=== PATIENT | female | born 1945 | race Caucasian/White ===

== ENCOUNTER 2022-10-22 11:33 | Inpatient (IN) | payer OTHER ==
--- OUTSIDE RECORDS SUMMARY | 2022-10-22 11:44 | XMS REPORT | Continuity of Care Document ---
:1945 Author Organization [facility] t Address [address] [place] [address]. [address] [place] [address] Care Team Providers Name Role Phone Dwayne Gaxiola Primary Care Physician CARLOS FARRELL Attending Clinician Unavailable Abigail Peña Attending Clinician Unavailable [place] Attending Clinician Param Metzger Attending Clinician KAM NOVA Attending Clinician Unavailable Kam Nova Attending Clinician BRENDA MUNIZ Attending Clinician Unavailable ANDREI DELGADILLO Attending Clinician Unavailable Andrei Delgadillo MD Attending Clinician Only, Adc Test Attending Clinician Unavailable Kurtis Harp MD Attending Clinician KURTIS HARP Attending Clinician Unavailable Doctor Unassigned, [place] Attending Clinician Unavailable Pob, [facility] Lab Main Attending Clinician Unavailable KARIME HUDSON Attending Clinician Unavailable JOSE ALFREDO GARCIA Attending Clinician Unavailable MARCELLUS Attending Clinician Unavailable Dwayne Gaxiola Attending Clinician [phone] Nicole Ragsdale Attending Clinician Ryan Swartz Attending Clinician Rafael El L Admitting Clinician KAM NOVA Admitting Clinician Unavailable Kam Nova Admitting Clinician BRENDA MUNIZ Admitting Clinician Unavailable ANDREI DELGADILLO Admitting Clinician Unavailable Andrei Delgadillo MD Admitting Clinician MARCELLUS Admitting Clinician Unavailable Nicole Ragsdale Admitting Clinician Ryan Swartz Admitting Clinician Payers Payer Name Policy Type Policy Number Effective Date Expiration Date [facility] [id number] 2022 [facility]LY [facility] 00:00:00 [facility] [id number] 2021 [facility] 00:00:00 PPO [place] [id number] 2021 00:00:00 TRS-CARE MEDICARE [id number] [facility] [id number] (PPO) [employer] (MEDICARE [id number] REPLACEMENT/ADVANTA GE - PPO) Problems Condition Condition Condition Status Onset Resolution Last Treating Co mments Source Name Details Category Date Date Treatment Clinician Date LASHAWN HARDIN Diagnosis Active 2022-01-11 Memoria BILLING/LF BILLING/LF 01-07 08:13:00 l LT 2787 LT 2787 00:00: Ronn Active 00 01/07/2022 [facility] STROKE STROKE Diagnosis Active 2022-01-09 Me moria Active 01-07 13:43:00 l 01/07/2022 00:00: John lauren [address] Essential Essential Problem Active 2018- Swe lydia tremor Tremor 2-17 Communi 00:00: ty 00 [facility] Chronic Chronic Problem Active 2018- [place] pain 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 [facility] Disease of Disease Problem Active 2022-10-04 Memoria bladder of bladder 04-11 20:43:12 l (disorder) (disorder) 00:00: He rmann Active 00 04/11/2013 Problem 10/04/2022 Data migrated from [employer] on 01/18/15. [facility] Hyperchole Hyperchol Problem Active 2022-10-04 Memoria sterolemia esterolemi 04-11 20:43:12 l (disorder) a 00:00: John lauren (disorder) 00 Active 04/11/2013 Problem 10/04/2022 Data migrated from [employer] on 01/18/15. [facility] Weight Weight Problem Active 2022-10-04 Julio amber decreased decreased 04-11 20:43:12 l (finding) (finding) 00:00: Herm bernard Active 00 04/11/2013 Problem 10/04/2022 Data migrated from Centricity on 01/18/15. [facility] Final: Final: Problem 2014-09-06 Mem oria 09/06/2014 08:33:43 l [place] VAGINAL VAGINAL Diagnosis Active 2014-09-06 Memoria ENTEROCELE ENTEROCELE 07:51:00 l Active John lauren [place] UTERVAGINA Diagnosis Active 2014-09-06 Memoria L PROLAPSE UTERVAGINA 07:51:00 l NOS L PROLAPSE John n NOS Active [place] CYSTOCELE, CYSTOCELE Diagnosis Active 2014-09-06 Memoria MIDLINE , MIDLINE 07:51:00 l Active John n [place] SYNCOPE SYNCOPE Diagnosis Active 2014-03-12 Memoria AND AND 12:24:00 l COLLAPSE COLLAPSE John n Active [facility] History of History Problem Resolve 2022-10-04 Memoria - of - d 20:43:12 l hypothyroi hypothyroi He rmann dism dism (context-d (context-d ependent ependent category) category) Resolved Problem 10/04/2022 [facility] 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 22:42:07 l sm sm [place] (disorder) (disorder) Active Problem 10/04/2022 [facility] [place] Dementia Dementia Problem Active 2022-10-04 Memoria (disorder) (disorder) 22:42:07 l Active Ronn Problem 10/04/2022 [facility] [place] History of History Problem Active 2022-10-04 Memoria - CVA of - CVA 22:42:07 l (context-d (context-d He rmann ependent ependent category) category) Active Problem 10/04/2022 [facility] Hyperlipid Hyperlipi Problem Active 2022-10-04 Memoria emia demia 22:42:07 l (disorder) (disorder) He rmann Active Problem 10/04/2022 [facility] Hypothyroi Hypothyro Problem Active 2022-10-04 Memoria dism idism 22:42:07 l (disorder) (disorder) He rmann Active Problem 10/04/2022 [facility] 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 a a (finding) (finding) Active Problem 10/04/2022 [facility] [place] Lytic Lytic Problem Active 2022-10-04 Memor ia lesion of lesion of 22:42:07 l bone on bone on Ronn X-ray X-ray (finding) (finding) Active Problem 10/04/2022 [facility] [place] Tremor Tremor Problem Active 2022-10-04 Julio amber (finding) (finding) 22:42:07 l Active Ronn Problem 10/04/2022 [facility] [place] Alteration Alteratio Problem Active 2022-10-04 Memoria of n of 22:42:07 l sensation sensation Herm bernard 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 stroke (disorder) (disorder) Active Problem 10/04/2022 [facility] Urinary Urinary Diagnosis 2022-10-04 2022-10-04 Memoria tract tract 2- 22:42:07 22:42:07 l infectious infectious 07:16: He rmann disease disease 00 (disorder) (disorder) 10/02/2022 Diagnosis 10/04/2022 [facility] Sequelae Sequelae Diagnosis 2022-10-04 2022-10-04 Memoria of of 2- 22:42:07 22:42:07 l cerebral cerebral 07:16: John n infarction infarction 00 (disorder) (disorder) Diagnosis 10/04/2022 [facility] Other Other Problem 2022-10-04 2022-10-04 M emoria sequelae sequelae 2- 20:43:12 20:43:12 l of of 07:16: Ronn cerebral cerebral 00 infarction infarction 3 10/04/2022 [facility] Urinary Urinary Problem 2022-10-04 2022-10-04 Memoria tract tract 2- 20:43:12 20:43:12 l infection, infection, 07:16: He ann site not site not 00 specified specified 10/02/2022 10/04/2022 [facility] Mass of [place] of Problem Resolve 2022-10-04 2022-10-04 Memoria neck neck d 8-21 20:43:12 20:43:12 l (finding) (finding) 00:00: Herm bernard Resolved 00 04/11/2013 Problem 10/04/2022 Data migrated from pyco on 01/18/15. [facility] Moore,[facility] [place] Allergies, Adverse Reactions, Alerts Allergy Allergy Status Severity Reaction(s) Onset Inactive Treating Comm ents Source Name Type Date Date Clinician PROMETHA DRUG Active N/V 2020-08 [facility] ZINE INGREDI 09-22 ity of 00:00: [place] 00 [facility] Prometha Propensi Active Nausea 2020-08 Univer s zine ty to and/or 09-22 ity of adverse Vomiting 00:00: [place] reaction 00 Medical s Branch CODEINE DRUG Active N/V 2020-08 [facility] INGREDI 09-19 ity of 00:00: [place] 00 [facility] PROCHLOR DRUG Active N/V 2020-08 [facility] PERAZINE INGREDI 09-19 ity of 00:00: [place] 00 [facility] Codeine Propensi Active Nausea 2020-08 Univers ty to and/or 09-19 ity of adverse Vomiting 00:00: [place] reaction 00 Medical s Branch Prochlor Propensi Active Nausea 2020-08 Univer s perazine ty to and/or 09-19 ity of adverse Vomiting 00:00: [place] reaction 00 Medical s Branch Codeine Propensi Active Shortness Of 2020-08 [place] ty to Breath 0-14 College adverse 00:00: of reaction 00 Medicin s to e drug NO KNOWN Drug Active Univers ALLERGIE Class ity of [facility] codeine codeine Active Memoria l [place] Compazin Compazin Active Memori a e e l [place] Phenerga Phenerga Active Memori a n n l [place] Compazin Allergy Active [place] [facility] Phenerga Allergy Active [place] [facility] Social History Social Habit Start Date Stop Date Quantity Comments Source Exposure to Not sure [facility] SARS-CoV-2 (event) Medica l Branch Tobacco use and 2021-07-20 2021-07-20 Never used [facility] exposure 00:00:00 00:00:00 Medical Branch Social History 2014-09-03 2014-09-03 Gabriela amador 22:07:59 22:07:59 Sex [birth year] [facility] 00:00:00 00:00:00 Medical Branch Smoking Status Start Date Stop Date Source Tobacco smoking status [facility] Tobacco smoking status [facility] Medications Ordered Filled Start Stop Current Ordering Indication Dosage Frequency Signature Comments Components Source Medication Medication Date Date Medication? Clinician (SIG) Name Name Kristine Haque Yes 500 mg = 1 M emoria mg oral 2-11 cap, PO, l capsule 07:42: BID, X 7 John n 00 day, # 14 cap, 0 Refill(s) Keflex 500 Yes 500 mg = 1 M emoria mg oral 2-11 cap, PO, l capsule 07:18: QID, X 7 John n 00 day, # 28 cap, 0 Refill(s) Omnipaque No 60 mL, Memori a 350 mg/mL 2-11 Route: l 03:47: IVP, Drug [place] Form: SOLN, toya, ONCALL, STAT, Start date: 10/01/22 21:47:00 [employer], Duration: 1 doses or times, Dose = 2.2ml/kg, Max dose = 100ml -- "To be infused by Radiology Staff ONLY" Saline No Notes: Memoria Flush 0.9% 2-11 (Same as: l 03:30: BD Ronn 00 Posiflush) Mirapex Yes 0.25 mg = Memor ia 0.25 mg 207 1 tab, PO, l oral tablet 16:34: TID, # 90 H ermann 00 tab, 3 Refill(s), Pharmacy: [facility] [place], 160.02, cm, 09/28/22 10:17:00 [employer], Height, 50.909, kg, 09/28/22 10:17:00 [employer], Weight Sinemet 25 2021-08 Yes 1 tab, PO, M emoria mg-100 mg 2-06 TID, # 90 l oral tablet 17:13: tab, 2 Herm bernard 00 Refill(s), Pharmacy: [facility] [place], 160.02, cm, 07/27/22 10:52:00 [employer], Height, 55.54, kg, 07/27/22 10:52:00 [employer], Weight rivastigmin 2021-08 Yes = 1 patch, Memoria e 9.5 mg/24 2-06 TOP, l hr 17:13: Daily, [place] transdermal 00 apply to film, skin, # 90 extended patch, 1 release Refill(s), Pharmacy: [facility], 160.02, cm, 07/27/22 10:52:00 [employer], Height, 55.54, kg, 07/27/22 10:52:00 [employer], Weight primidone 2021-08 Yes 50 mg = 1 Mem oria 50 mg oral 2-06 tab, PO, l tablet 17:12: TID, # 90 John n 00 tab, 3 Refill(s), Pharmacy: [facility], 160.02, cm, 07/27/22 10:52:00 [employer], Height, 55.54, kg, 07/27/22 10:52:00 [employer], Weight Mirapex 2021-08 Yes 0.125 mg = Julio amber 0.125 mg 2-06 1 tab, PO, l oral tablet 17:12: TID, # 90 H ermann 00 tab, 2 Refill(s), Pharmacy: [facility], 160.02, cm, 07/27/22 10:52:00 [employer], Height, 55.54, kg, 07/27/22 10:52:00 [employer], Weight rivastigmin 2021-08 Yes See Memori a e 4.6 mg/24 1-28 Instructio l hr 19:30: ns, APPLY Ronn transdermal 00 ONE (1) film, PATCH TO extended AN AREA release THAT IS CLEAN/ DRY/ HAIRLESS & FREE OF REDNESS/ IRRITATION / PALACIOS/ CUTS ONCE DAILY., # 30 ea, 2 Refill(s), Pharmacy: [place] [id number], 160.02, cm, 06/17/22 9:58:00 CDT, Height, 55.455, kg, 06/17/22 9:58:00 CDT,... primidone 2021-08 Yes 50 mg = 1 Mem oria 50 mg oral 0-27 tab, PO, l tablet 15:24: Bedtime, # Desiree nn 00 30 tab, 3 Refill(s), Pharmacy: [facility], 160.02, cm, 06/17/22 9:58:00 CDT, Height, 55.455, kg, 06/17/22 9:58:00 CDT, Weight Mirapex Yes 0.125 mg = Julio amber 0.125 mg 9-15 1 tab, PO, l oral tablet 16:18: BID, # 60 H ermann 00 tab, 2 Refill(s), Pharmacy: [facility], 160.02, cm, 05/06/22 11:07:00 CDT, Height, 55, kg, 05/06/22 11:07:00 CDT, Weight Sinemet 25 Yes 1 tab, PO, M emoria mg-100 mg 8-29 TID, # 90 l oral tablet 19:44: tab, 2 Herm bernard 00 Refill(s), Pharmacy: [facility], 160.02, cm, 03/18/22 15:32:00 CDT, Height, 54.773, kg, 03/18/22 15:32:00 CDT, Weight Sinemet 25 Yes 1 tab, PO, M emoria mg-100 mg 7- BID, # 60 l oral tablet 21:20: tab, 3 Herm bernard 00 Refill(s), Pharmacy: [facility], 160.02, cm, 03/18/22 15:32:00 CDT, Height, 54.773, kg, 03/18/22 15:32:00 CDT, Weight Exelon 4.6 Yes = 1 patch, M emoria mg/24 hr - TOP, l transdermal 21:18: Daily, Herm bernard film, 00 apply to extended area that release is clean/dry/ hairless & free of redness/ir ritation/b urns/cuts, # 30 patch, 3 Refill(s), Pharmacy: [facility], 160.02, cm, 03/18/22 15:32:00 CDT, Height, 54.773, kg, 03/18/22 15:32:00 CDT, Weight lisinopril Yes 20 mg = 1 Me moria 20 mg oral 5-22 tab, PO, l tablet 11:31: Daily, # [place] 00 30 tab, 2 Refill(s) aspirin 81 No Notes: Memor ia mg tablet, 5-21 Take with l chewable 14:00: food. Ronn 00 lisinopril No Notes: Memor ia 5-21 (Same as: l 13:19: Prinivil, Zestril) amLODIPine No 5 mg, Memori a 5-21 Route: PO, l 13:16: Drug form: TAB, Daily, Dosing Weight 61.3, kg, Priority: NOW, Start date: 01/09/22 8:16:00 CDT, Duration: 30 day, Stop date: 02/07/22 9:00:00 CDT atorvastati Yes 80 mg = 1 M emoria n 80 mg 5-21 tab, PO, l oral tablet 11:59: Bedtime, # 30 tab, 2 Refill(s) senna No Notes: Memoria 5-20 (Same as: l 14:00: Senokot) potassium No Notes: Memori a chloride 5-20 (Same as: l 13:01: Potassium Chloride) levothyroxi No Notes: Julio amber ne 5-20 Take 1 l 12:30: hour before or 2 hours after meal; Enteral feeds may interefere with the absorption of this medication . (Same as:Levothr oid, Synthroid) docusate No Notes: Memoria 5-20 (Same as: l 02:00: Colace) atorvastati No Notes: Julio amber n 5-20 Same as l 02:00: Lipitor Saline No Notes: Memoria Flush 0.9% 5-20 (Same as: l 02:00: BD Posiflush) Dextrose 5% No 1,000 mL, M emoria in Lactated 5-19 Rate: 40 l Ringers IV 21:19: ml/hr, Desiree nn 1,000 mL 00 Infuse over: 25 hr, Route: IV, Dosing Weight 61.3 kg, Total Volume: 1,000, Start date: 01/07/22 16:19:00 CDT, Duration: 30 day, Stop date: 02/06/22 16:18:00 CDT, BSA: 1.69 m2, 0 levothyroxi Yes 100 Memori a ne 100 mcg 5-19 microgram l (0.1 mg) 19:56: = 1 tab, Desiree nn oral tablet 00 PO, Daily, 0 Refill(s) alteplase No 5.5 mg, Memor ia 5-19 Route: IV, l 16:26: ONCE, [place] 00 Dosing Weight 61.3, kg, Priority: STAT, Start date: 01/07/22 11:26:00 CDT, Stop date: 01/07/22 11:26:00 CDT Sodium Yes 50 mL, 50 Memori a Chloride 5-19 ml/hr, l 0.9% 16:26: Infuse [place] (Flush) IV 00 Over: 1 hr, Route: IV, 50, Drug form: INJ, ONCE, Dosing Weight 61.3 kg, Start date: 01/07/22 11:26:00 CDT, Stop date: 01/07/22 11:26:00 CDT, For line flush AFTER alteplase (tPA) infusion., 0 acetaminoph No Notes: Do M emoria en 5-19 not exceed l 16:23: 4 gm/day. (Same as: Tylenol) Saline No Notes: Memoria Flush 0.9% 5-19 (Same as: l 16:23: BD [place] Posiflush) labetalol No 10 mg, 2 Julio amber 5-19 mL, Route: l 16:23: IVP, Drug form: INJ, Q10Min, kg, PRN Hypertensi on, Start date: 01/07/22 11:23:00 CDT, Duration: 30 day, Stop date: 02/06/22 11:22:00 CDT, 0 enalaprilat No Notes: Julio amber 5-19 (Same as: l 16:23: Vasotec-IV ) hydrALAZINE No Notes: Julio amber 5-19 (Same as: l 16:23: Apresoline ) Push over 5 minutes Isolyte S No Notes: Memori a PH-7.4 5-19 (Same as: l (Bolus) IV 15:09: Isolyte S He rm PH7.4, Normosol-R PH 7.4, Plasma-Lyt e A ) Omnipaque No 100 mL, Memor ia 350 mg/mL 01-07 Route: l 14:59: IVP, Drug Form: SOLN, kg, ONCALL, STAT, Start date: 01/07/22 9:59:00 CDT, Duration: 1 doses or times, Dose = 2.2ml/kg, Max dose = 100ml -- "To be infused by Radiology Staff ONLY" Saline No Notes: Memoria Flush 0.9% 01-07 (Same as: l 14:49: BD Posiflush) neomycin-po 2020-08 Yes PRN, Univer s lymyxin-dex 10-13 Starting ity of amethasone 17:24: on Tue [place] (MAXITROL) 08/12/21 Medic al 3.5 at 1124, Branch mg/g-10,000 Until unit/g-0.1 Discontinu % ed, ophthalmic Routine, ointment Intra-op neomycin-po 2020-08- No PRN, Unive rs lymyxin-dex -08-12 Starting ity of amethasone 17:24: 20:05 on Tue [place] (MAXITROL) 00 :04 08/12/21 Medic al 3.5 at 1124, Branch mg/g-10,000 Until Tue unit/g-0.1 08/12/21 % at 1405, ophthalmic Routine, ointment Intra-op sodium 2020-08 Yes PRN, Univers chloride 10-13 Starting ity of (NS) 17:20: on Tue [place] injection 08/12/21 Medica l at 1120, Branch Until Discontinu ed, Routine, Intra-op dexamethaso 2020-08 Yes PRN, Univer s ne 10-13 Starting ity of (DECADRON 17:20: on Tue [place] PHOSPHATE) 08/12/21 Medic al injection at 1120, Branch Until Discontinu ed, Routine, Intra-op ceFAZolin 2020-08 Yes PRN, Univers (ANCEF) 10-13 Starting ity of injection 17:20: on Tue 00 08/12/21 Medical at 1120, Branch Until Discontinu ed, ALEX, Intra-op sodium 2020-08- No PRN, Univers chloride 10-13 Starting ity of (NS) 17:20: 20:05 on Tue injection 00 :04 08/12/21 Medica l at 1120, Branch Until Tue08/12/21 at 1405, Routine, Intra-op dexamethaso 2020-08- No PRN, Unive rs ne 10-13 Starting ity of (DECADRON 17:20: 20:05 on Tue PHOSPHATE) 00 :04 08/12/21 Medic al injection at 1120, Branch Until Tue08/12/21 at 1405, Routine, Intra-op ceFAZolin 2020-08- No PRN, Univers (ANCEF) 10-13 Starting ity of injection 17:20: 20:05 on Tue 00 :04 08/12/21 Medical at 1120, Branch Until Tue08/12/21 at 1405, ALEX, Intra-op carbachoL 2020-08 Yes PRN, Univers (MIOSTAT) 10-13 Starting ity of 0.01 % 17:18: on Tue intraocular 00 08/12/21 Medi janey injection at 1118, Branch Until Discontinu ed, Routine, Intra-op carbachoL 2020-08- No PRN, Univers (MIOSTAT) 10-13 Starting ity o f 0.01 % 17:18: 20:05 on Tue intraocular 00 :04 08/12/21 Medi janey injection at 1118, Branch Until Tue08/12/21 at 1405, Routine, Intra-op DUOVISC 2020-08 Yes PRN, Univers (DUOVISC 10-13 Starting ity of VISCO 17:08: on Tue ELASTIC) 3 00 08/12/21 Medic al %-4 %(0.5 at 1108, Branch mL) 1 % Until (0.55 mL) Discontinu intraocular ed, injection Routine, Intra-op EPINEPHrine 2020-08 Yes PRN, Univer s 1:1,000 (1 10-13 Starting ity o f mg/mL) 17:08: on Tue (ADRENALIN) 00 08/12/21 Medi janey injection at 1108, Branch Until Discontinu ed, Routine, Intra-op balanced 2020-08 Yes PRN, Univers salt irrig - Starting ity o f soln comb1 17:08: on Tue (BSS PLUS) 00 08/12/21 Medic al ophthalmic at 1108, Branc h solution Until 500 mL bag Discontinu ed, Routine, Intra-op DUOVISC 2020-08- No PRN, Univers (DUOVISC 10-13 Starting ity of VISCO 17:08: 20:05 on Tue [place] ELASTIC) 3 00 :04 08/12/21 Medic al %-4 %(0.5 at 1108, Branch mL) 1 % Until Tue (0.55 mL) 08/12/21 intraocular at 1405, injection Routine, Intra-op EPINEPHrine 2020-08- No PRN, Unive rs 1:1,000 (1 10-13 Starting ity of mg/mL) 17:08: 20:05 on Tue (ADRENALIN) 00 :04 08/12/21 Medi janey injection at 1108, Branch Until Tue08/12/21 at 1405, Routine, Intra-op balanced 2020-08- No PRN, Univers salt irrig 10-13 Starting ity of soln comb1 17:08: 20:05 on Tuea s (BSS PLUS) 00 :04 08/12/21 Medic al ophthalmic at 1108, Branc h solution Until Tue 500 mL bag 08/12/21 at 1405, Routine, Intra-op water for 2020-08 Yes PRN, Univers irrigation 10-13 Starting ity o f irrigation 17:04: on Tue [place] solution 00 08/12/21 Medical at 1104, Branch Until Discontinu ed, Routine, Intra-op water for 2020-08- No PRN, Univers irrigation 10-13 Starting ity of irrigation 17:04: 20:05 on Tue [place] solution 00 :04 08/12/21 Medical at 1104, Branch Until Tue08/12/21 at 1405, Routine, Intra-op Hyaluronida 2020-08 Yes PRN, Univer s se, Human 10-13 Starting ity of Recomb. 16:59: on Tue (HYLENEX) 08/12/21 Medica l injection at 1059, Branch Until Discontinu ed, Routine, Intra-op eye block 2020-08 Yes PRN, Univers syringe 10-13 Starting ity o f mL 16:59: on Tue08/12/21 Medical at 1059, Branch Until Discontinu ed, Intra-op Hyaluronida 2020-08- No PRN, Unive rs se, Human 10-13 Starting ity o f Recomb. 16:59: 20:05 on Tue (HYLENEX) 00 :04 08/12/21 Medica l injection at 1059, Branch Until Tue08/12/21 at 1405, Routine, Intra-op eye block 2020-08- No PRN, Univers syringe 11 10-13 Starting ity of mL 16:59: 20:05 on Tue [place] 00 :04 08/12/21 Medical at 1059, Branch Until Tue08/12/21 at 1405, Intra-op lactated 2020-08- No 1000mL at 42 [facility] rs ringers IV 10-13 12-22 mL/hr, ity of infusion 15:30: 15:25 1,000 mL, [place] as 1,000 mL 00 :00 IV Medical Infusion, Branch ONCE, 1 dose, On Tue08/12/21 at 0930, Routine, DSU Pre-op cyclopent 2020-08- No .5mL 0.5 mL, Univ ers 1%-tropic 10-13 Right Eye, ity of 1%-phenyl 15:30: 15:25 ONCE, 1 [place] 2.5%-ketor 00 :00 dose, On Medic al 0.5% Tue Branch (MYDRIATIC 08/12/21 #5) at 0930, ophthalmic Routine, solution DSU Pre-op syringe 0.5 mL lactated 2020-08- No 1000mL at 42 [facility] rs ringers IV 10-13-22 mL/hr, ity of infusion 15:30: 15:25 1,000 mL, [place] as 1,000 mL 00 :00 IV Medical Infusion, Branch ONCE, 1 dose, On Tue08/12/21 at 0930, Routine, DSU Pre-op cyclopent 2020-08- No .5mL 0.5 mL, Univ ers 1%-tropic 10-13 Right Eye, ity of 1%-phenyl 15:30: 15:25 ONCE, 1 [place] 2.5%-ketor 00 :00 dose, On Medic al 0.5% [facility] (MYDRIATIC 08/12/21 #5) at 0930, ophthalmic Routine, solution DSU Pre-op syringe 0.5 mL Levothyroxi 2020-08 Yes Take by Uni vers ne 112 mcg 2-22 mouth. ity of capsule 12:00: [address] aspirin 81 2020-08 Yes Take by Univ ers mg Cap 2- mouth. ity of 12:00: [address] Levothyroxi 2020-08 Yes Take by Uni vers ne 112 mcg - mouth. ity of capsule 12:00: [address] aspirin 81 2020-08 Yes Take by Univ ers mg Cap - mouth. ity of 12:00: [address] water for 2020-08 Yes PRN, Univers irrigation 2- Starting ity o f irrigation 19:16: on [facility] solution 00 07/22/21 at Medic al 1316, Branch Until Discontinu ed, Routine, Intra-op water for 2020-08- No PRN, Univers irrigation 09-22 Starting ity of irrigation 19:16: 23:22 on [facility] [place] solution 00 :46 07/22/21 at Medic al 1316, Branch Until Tue07/22/21 at 1722, Routine, Intra-op sodium 2020-08 Yes PRN, Univers chloride 2 Starting ity of (NS) 19:15: on Tue [place] injection 00 07/22/21 at Medi janey 1315, Branch Until Discontinu ed, Routine, Intra-op neomycin-po 2020-08 Yes PRN, Univer s lymyxin-dex 2- Starting ity of amethasone 19:15: on Tue [place] (MAXITROL) 00 07/22/21 at Med ical 3.5 1315, Branch mg/g-10,000 Until unit/g-0.1 Discontinu % ed, ophthalmic Routine, ointment Intra-op Hyaluronida 2020-08 Yes PRN, Univer s se, Human 2- Starting ity of Recomb. 19:15: on Tue [place] (HYLENEX) 00 07/22/21 at [facility] janey injection 1315, Branch Until Discontinu ed, Routine, Intra-op sodium 2020-08- No PRN, Univers chloride 09-22 Starting ity of (NS) 19:15: 23:22 on Tue [place] injection 00 :46 21 at [facility] janey 1315, Branch Until Tue07/22/21 at 1722, Routine, Intra-op neomycin-po 2020-08- No PRN, Unive rs lymyxin-dex 09-22 Starting ity of amethasone 19:15: 23[place]22 [place] ([place] 00 :46 07/22/21 at [facility] ical 3.5 1315, Branch mg/g-10,000 Until Tue unit/g-0.1 07/22/21 at % 1722, ophthalmic Routine, ointment Intra-op Hyaluronida 2020-08- No PRN, Unive rs se, Human 09-22 Starting ity o f Recomb. 19:15: 23:22 on Tue (HYLENEX) 00 :46 07/22/21 at [facility] janey injection 1315, Branch Until Tue07/22/21 at 1722, Routine, Intra-op eye block 2020-08 Yes PRN, Univers syringe 09-22 Starting ity o f mL 19:14: on Tue [place] 00 07/22/21 at [facility] 1314, Branch Until Discontinu ed, Intra-op eye block 2020-08- No PRN, Univers syringe 11 09-22 Starting ity of mL 19:14: 23:22 on Tue [place] 00 :46 07/22/21 at [facility] 1314, Branch Until Tue07/22/21 at 1722, Intra-op EPINEPHrine 2020-08 Yes PRN, Univer s 1:1,000 (09-22 Starting ity o f mg/mL) 19:13: on Tue (ADRENALIN) 00 07/22/21 at Ma dical injection 1313, Branch Until Discontinu ed, Routine, Intra-op DUOVISC 2020-08 Yes PRN, Univers (DUOVISC 09-22 Starting ity of VISCO 19:13: on Wed [place] ELASTIC) 3 00 07/22/21 at Med ical %-4 %(0.5 1313, Branch mL) 1 % Until (0.55 mL) Discontinu intraocular ed, injection Routine, Intra-op dexamethaso 2020-08 Yes PRN, Univer s ne 09-22 Starting ity of (DECADRON 19:13: on Wed [place] PHOSPHATE) 00 07/22/21 at Med ical injection 1313, Branch Until Discontinu ed, Routine, Intra-op EPINEPHrine 2020-08- No PRN, Unive rs 1:1,000 (1 09-22 Starting ity of mg/mL) 19:13: 23:22 on Tue [place] (ADRENALIN) 00 :46 07/22/21 at Ma dical injection 1313, Branch Until Tue07/22/21 at 1722, Routine, Intra-op DUOVISC 2020-08- No PRN, Univers (DUOVISC 09-22 Starting ity of VISCO 19:13: 23:22 on Tue [place] ELASTIC) 3 00 :46 07/22/21 at [facility] ical %-4 %(0.5 1313, Branch mL) 1 % Until Wed (0.55 mL) 07/22/21 at intraocular 1722, injection Routine, Intra-op dexamethaso 2020-08- No PRN, Unive rs ne 09-22 Starting ity of (DECADRON 19:13: 23:22 on Tue [place] PHOSPHATE) 00 :46 07/22/21 at Med ical injection 1313, Branch Until Tue07/22/21 at 1722, Routine, Intra-op ceFAZolin 2020-08 Yes PRN, Univers (ANCEF) 09-22 Starting ity of injection 19:12: on Wed [place] 00 07/22/21 at [facility] 1312, Branch Until Discontinu ed, ALEX, Intra-op carbachoL 2020-08 Yes PRN, Univers (MIOSTAT) 09-22 Starting ity of 0.01 % 19:12: on Wed [place] intraocular 00 07/22/21 at Ma dical injection 1312, Branch Until Discontinu ed, Routine, Intra-op balanced 2020-08 Yes PRN, Univers salt irrig 09-22 Starting ity o f soln comb1 19:12: on Wed [place] (BSS PLUS) 00 07/22/21 at [facility] ica ophthalmic 1312, Branch solution Until 500 mL bag Discontinu ed, Routine, Intra-op ceFAZolin 2020-08- No PRN, Univers (ANCEF) 09-22 Starting ity of injection 19:12: 23:22 on Tue [place] 00 :46 07/22/21 at [facility] 1312, Branch Until Tue07/22/21 at 1722, ALEX, Intra-op carbachoL 2020-08- No PRN, Univers (MIOSTAT) 09-22 Starting ity o f 0.01 % 19:12: 23:22 on Tue [place] intraocular 00 :46 07/22/21 at Ma dical injection 1312, Branch Until Tue07/22/21 at 1722, Routine, Intra-op balanced 2020-08- No PRN, Univers salt irrig 09-22 Starting ity of soln comb1 19:12: 23:22 [place] (BSS PLUS[place] 00 :46 07/22/21 at [facility] ophthalmic 1312, Branch solution Until Tue 500 mL bag 07/22/21 at 1722, Routine, Intra-op lactated 2020-08- No 1000mL at 42 Unive rs ringers IV 09-22 mL/hr, ity of infusion 18:30: 18:33 1,000 mL, [place] as 1,000 mL 00 :00 IV Medical Infusion, Branch ONCE, 1 dose, On Tue07/22/21 at 1230, Routine, DSU Pre-op cyclopent 2020-08- No .5mL 0.5 mL, Univ ers 1%-tropic 09-22 Left Eye, ity of 1%-phenyl 18:30: 18:33 ONCE, 1 [place] 2.5%-ketor 00 :00 dose, On Medic al 0.5% Wed Branch (MYDRIATIC 07/22/21 at #5) 1230, ophthalmic Routine, solution DSU Pre-op syringe 0.5 mL lactated 2020-08- No 1000mL at 42 Unive rs ringers IV 09-22 mL/hr, ity of infusion 18:30: 18:33 1,000 mL, [place] as 1,000 mL 00 :00 IV Medical Infusion, Branch ONCE, 1 dose, On Tue07/22/21 at 1230, Routine, DSU Pre-op cyclopent 2020-08- No .5mL 0.5 mL, Univ ers 1%-tropic 2-01 07-22 Left Eye, ity of 1%-phenyl 18:30: 18:33 ONCE, 1 [place] 2.5%-ketor 00 :00 dose, On Medic al 0.5% Tue Branch (MYDRIATIC 07/22/21 at #5) 1230, ophthalmic Routine, solution DSU Pre-op syringe 0.5 mL Levothyroxi 2020-08 Yes Take by Uni vers ne 112 mcg 2-01 mouth. ity of capsule 15:22: [address] Levothyroxi 2020-08 Yes Take by Uni vers ne 112 mcg 2-01 mouth. ity of capsule 15:22: [address] Levothyroxi 2020-08 Yes Take by Uni vers ne 112 mcg 2-01 mouth. ity of capsule 15:22: [address] Levothyroxi 2020-08 Yes Take by Uni vers ne 112 mcg 2-01 mouth. ity of capsule 15:22: [address] Levothyroxi 2020-08 Yes Take by Uni vers ne 112 mcg 2-01 mouth. ity of capsule 15:22: [address] aspirin EC 2020-08 Yes aspirin 81 B aylor 81 MG 0-14 mg College tablet 13:39: chewable of 39 tablet Medicin Chew 1 e tablet every day by oral route. levothyroxi 2020-08 Yes levothyrox [facility] ne 0-14 [facility] 100 College (SYNTHROID) 13:39: mcg tablet of 100 MCG 39 TAKE 1 Medicin tablet TABLET BY e MOUTH ONCE DAILY . APPOINTMEN T REQUIRED FOR FUTURE REFILLS FOR LABS AND CHECK UP propranolol Yes [facility] (INDERAL) 8-24 College 10 MG 00:00: of tablet 00 Medicin e 24 HR No Notes: Memoria rivastigmin 1-14 Same as l e 0.192 15:00: Exelon [place] MG/HR 00 "Remove Transdermal old patch Patch before [Exelon] applicatio n of new patch" Lovastatin No 20 mg, Memor ia 14 Route: PO, l 15:00: Daily, [place] 00 Dosing Weight 63.636, kg, Start date: 09/04/14 9:00:00, Duration: 30 day, Stop date: 10/03/14 9:00:00 Enoxaparin No Notes: Memor ia -14 (Same as: l 15:00: Lovenox) [place] 00 Motrin No Notes: Memoria -14 (Same as: l 14:19: Motrin) [place] 00 "Do Not Crush" Take with food. Lipitor No Notes: Memoria -14 (Same As: l 03:00: Lipitor) [place] 00 24 HR Yes 25 mg = 1 Memoria mirabegron 09-04 tab, PO, l 25 MG 00:26: Daily, 0 Ronn Extended 00 Refill(s) Release Tablet [Myrbetriq] clonazePAM Yes 0.5 mg = 1 M emoria 0.5 mg oral 09-04 tab, PO, l tablet 00:22: BID, 0 [place] 00 Refill(s) Fish Oil No 1,000 mg = Mem oria 1000 mg 09-04 1 cap, PO, l oral 00:22: Daily, 0 Ronn capsule 00 Refill(s) Acetaminoph No Notes: Do M emoria en 09-03 not exceed l 20:17: 4 gm/day. [place] 00 (Same as: Tylenol) Hydromorpho No Notes: Julio amber ne 09-03 Same as: l 20:17: Dilaudid Morphine No Notes: Memoria 09-03 (Same l 20:17: as:MORPhin e Sulfate) Tramadol No Notes: Not Mem oria 09-03 to exceed l 20:17: 400mg/day. [place] (Same As: Ultram) Ketorolac No 4 days Memor ia -13 l 20:17: Ronn 00 Ondansetron No Notes: Julio amber -13 (Same as: l 20:17: Zofran) Diphenhydra No 25 mg, 1 Me moria mine -13 tab, l 20:17: Route: PO, Drug form: TAB, Bedtime, Dosing Weight 63.636, kg, PRN Insomnia, Start date: 09/03/14 14:17:00, Duration: 30 day, Stop date: 10/03/14 14:16:00 Simethicone No Notes: Julio amber -13 (Same as: l 20:17: Mylicon) Docusate No Notes: Memoria 1-13 (Same as: l 20:17: Colace) (Do Not Crush) Calcium No 1,000 mL, Memor ia Chloride 09-03 Rate: 125 l 0.0014 20:17: ml/hr, Ronn MEQ/ML / 00 Infuse Potassium over: 8 Chloride hr, Route: 0.004 IV, Dosing MEQ/ML / Weight Sodium 63.636 kg, Chloride Total 0.103 Volume: MEQ/ML / 1,000, Sodium Start Lactate date: 0.028 15 MEQ/ML 14:17:00, Injectable Duration: Solution 30 day, Stop date: 10/03/14 14:16:00 Clonazepam No Notes: Memor ia 1-13 (Same As: l 17:03: KlonoPIN) Calcium No 1,000 mL, Memor ia Chloride 09-03 Rate: 25 l 0.0014 15:14: ml/hr, [place] MEQ/ML / 00 Infuse Potassium over: 40 Chloride hr, Route: 0.004 IV, Dosing MEQ/ML / Weight Sodium 63.636 kg, Chloride Total 0.103 Volume: MEQ/ML / 1,000, Sodium Start Lactate date: 0.028 09/03/14 MEQ/ML 9:14:00, Injectable Duration: Solution 30 day, Stop date: 10/03/14 9:13:00 ceFAZolin No Notes: Memori a 1-13 Same as: l 12:00: Ancef BD Normal No Notes: Memori a Saline -13 (Same as: l Flush 12:00: BD Posiflush) Tylenol No 0 Memoria 1-05 Refill(s) l 20:57: Ron[place] 00 tramadol Yes 50 mg = 1 Julio amber hydrochlori 1-05 tab, PO, l de 50 MG 20:56: Q6H, Pain, Her adam Oral Tablet 00 # 40 tab, 0 Refill(s) clonazePAM No 0 Memoria 0.5 mg oral 05 Refill(s) l tablet 20:56: [place] 00 24 HR Yes Special Memoria rivastigmin -05 Instructio l e 0.192 20:55: ns: apply Desiree nn MG/HR 00 to area Transdermal that is Patch clean/dry/ [Exelon] hairless & free of redness/ir ritation/b urns/cuts [place] No 0 Memoria 30 1-05 Refill(s) l 20:55: [place] 00 24 HR No 0 Memoria mirabegron -05 Refill(s) l 25 MG 20:54: [place] Extended 00 Release Tablet [Myrbetriq] Acetaminoph No Notes: Max Memoria en 03-09 acetaminop l 06:29: hen = [place] 00 4000mg/day (4 gm/day). (Same as: Tylenol) Lipitor No Notes: Memoria 03-09 (Same As: l 02:00: Lipitor) [place] 00 NS 1,000 mL No 1,000 mL, M emoria 03-08 Rate: 125 l 17:20: ml/hr, Ronn 00 Infuse over: 8 hr, Route: IV, Dosing Weight 68.18 kg, Total Volume: 1,000, Start date: 03/08/14 12:20:00, Duration: 30 day, Stop date: 04/07/14 12:19:00 Sodium No 500 mL, Memoria Chloride 03-08 500 ml/hr, l 0.154 16:20: Infuse [place] MEQ/ML 00 Over: 1 Injectable hr, Route: Solution IV, ONCE, Priority: STAT, Dosing Weight 68.18 kg, Start date: 03/08/14 11:20:00, Duration: 1 doses or times, Stop date: 03/08/14 11:20:00 Aspirin 81 No Notes: Do Me moria MG Enteric 7-18 not crush l Coated 14:00: or chew. Ronn Tablet 00 (Same As: Ecotrin) Ascorbic No Notes: Memoria Acid / Beta 7-18 (Same l Carotene / 14:00: as:Thera-M H ermann cuprous 00 , oxide / Theragran- Lutein / M) Give sodium with food. selenate / Vitamin E / Zinc Oxide Thyroxine No Notes: Memori a 7-18 Take 1 l 14:00: hour [place] 00 before or 2 hours after meal; Enteral feeds may interefere with the absorption of this medication . (Same as:Levothr oid) Plavix No Notes: Memoria 7-18 (Same As: l 14:00: Plavix) Ronn 00 Lovastatin No 20 mg, Memor ia 7-18 Route: PO, l 14:00: Daily, [place] Dosing Weight 68.18, kg, Start date: 03/08/14 9:00:00, Duration: 30 day, Stop date: 04/06/14 9:00:00 Saline No Notes: Memoria Flush 0.9% 7-18 (Same as: l 02:00: BD Ronn 00 Posiflush) chlorhexidi No Notes: Julio amber ne 7-18 (Same As: l gluconate 01:00: Peridex) Herm bernard 1.2 MG/ML 00 Mouthwash biotin 1000 Yes 5,000 Memor ia mcg oral 7-18 microgram l tablet 00:33: = 5 tab, [place] 00 PO, Daily, # 30 tab, 0 Refill(s) cinnamon Yes 2,000 mg = Mem oria 500 mg oral 7-18 4 cap, PO, l capsule 00:32: Daily, 0 John n 00 Refill(s) One-A-Day Yes 1 tab, PO, Me moria Women oral 7-18 Daily, # l tablet 00:32: 30 tab, 0 John n 00 Refill(s) Saline No Notes: Memoria Flush 0.9% 7-17 (Same as: l 23:02: BD [place] 00 Posiflush) Sodium No 250 mL, Memoria Chloride 03-07 500 ml/hr, l 0.154 23:02: Infuse Ronn MEQ/ML 00 Over: 30 Injectable minutes, Solution Route: IV, 250, Drug form: INJ, ONCE, Priority: STAT, Dosing Weight 68.182 kg, Start date: 03/07/14 18:02:00, Duration: 1 doses or times, Stop date: 03/07/14 18:02:00 clopidogrel Yes 75 mg = 1 M emoria 75 MG Oral 717 tab, PO, l Tablet 20:50: Daily, # [place] [Plavix] 00 30 tab, 0 Refill(s) Aspirin 81 Yes 81 mg = 1 Me moria MG Enteric 17 tab, PO, l Coated 20:50: Daily, 0 [place] Tablet 00 Refill(s) levothyroxi No 25 Memori a ne 25 mcg 03-07 microgram l (0.025 mg) 20:50: = 1 tab, Her adam oral tablet 00 PO, Daily, # 30 tab, 0 Refill(s) aspirin 81 Yes 81 mg = 1 Me moria mg tablet, 17 tab, PO, l enteric 20:50: Daily, 0 John n coated 00 Refill(s) Lovastatin Yes 20 mg, PO, M emoria 717 Daily, 0 l 20:48: Refill(s) [place] 00 aspirin 81 aspirin 81 No 1 Q1D aspirin 81 [place] mg chewable mg chewable mg C [facility]i tablet Chew tablet Chew chewable ty 1 tablet 1 tablet tablet Hospi ta every day every day Chew 1 l by oral by oral tablet Clinics route. route. every day by oral route. levothyroxi levothyroxi No levothyrox [place] ne 100 mcg ne 100 mcg ine 100 Communi tablet TAKE tablet TAKE mcg tablet ty 1 TABLET BY 1 TABLET BY TAKE 1 Hospita MOUTH ONCE MOUTH ONCE TABLET BY l DAILY . DAILY . MOUTH ONCE Cli nics APPOINTMENT APPOINTMENT DAILY . REQUIRED REQUIRED APPOINTMEN FOR FUTURE FOR FUTURE T REQUIRED REFILLS FOR REFILLS FOR FOR FUTURE LABS AND LABS AND REFILLS CHECK UP CHECK UP FOR LABS AND CHECK UP aspirin 81 aspirin 81 No 1 Q1D aspirin 81 [place] mg chewable mg chewable mg C [facility]i tablet Chew tablet Chew chewable ty 1 tablet 1 tablet tablet Hospi ta every day every day Chew 1 l by oral by oral tablet Clinics route. route. every day by oral route. levothyroxi levothyroxi No levothyrox [place] ne 100 mcg ne 100 mcg ine 100 Communi tablet TAKE tablet TAKE mcg tablet ty 1 TABLET BY 1 TABLET BY TAKE 1 Hospita MOUTH ONCE MOUTH ONCE TABLET BY l DAILY . DAILY . MOUTH ONCE Cli nics APPOINTMENT APPOINTMENT DAILY . REQUIRED REQUIRED APPOINTMEN FOR FUTURE FOR FUTURE T REQUIRED REFILLS FOR REFILLS FOR FOR FUTURE LABS AND LABS AND REFILLS CHECK UP CHECK UP FOR LABS AND CHECK UP Immunizations Ordered Filled Immunization Date Status Comments [facility] e Immunization Name Name SARS-COV-2 COVID-19 2020-12-10 Completed Unive rsity of MODERNA VACCINE 00:00:00 [facility] SARS-COV-2 COVID-19 2020-12-10 Completed Unive rsity of MODERNA VACCINE 00:00:00 [facility] SARS-COV-2 COVID-19 2020-12-10 Completed Unive rsity of MODERNA VACCINE 00:00:00 [facility] SARS-COV-2 COVID-19 2020-12-10 Completed Unive rsity of MODERNA VACCINE 00:00:00 [facility] SARS-COV-2 COVID-19 2020-12-10 Completed Unive rsity of MODERNA VACCINE 00:00:00 [facility] SARS-COV-2 COVID-19 2020-12-10 Completed Unive rsity of MODERNA VACCINE 00:00:00 [facility] SARS-COV-2 COVID-19 2020-12-10 Completed Unive rsity of MODERNA VACCINE 00:00:00 [facility] SARS-COV-2 COVID-19 2020-11-12 Completed Unive rsity of MODERNA VACCINE 00:00:00 [facility] SARS-COV-2 COVID-19 2020-11-12 Completed Unive rsity of MODERNA VACCINE 00:00:00 [facility] SARS-COV-2 COVID-19 2020-11-12 Completed Unive rsity of MODERNA VACCINE 00:00:00 [facility] SARS-COV-2 COVID-19 2020-11-12 Completed Unive rsity of MODERNA VACCINE 00:00:00 [facility] SARS-COV-2 COVID-19 2020-11-12 Completed Unive rsity of MODERNA VACCINE 00:00:00 [facility] SARS-COV-2 COVID-19 2020-11-12 Completed Unive rsity of MODERNA VACCINE 00:00:00 [facility] SARS-COV-2 COVID-19 2020-11-12 Completed Unive rsity of MODERNA VACCINE 00:00:00 [facility] influenza, influenza, 2020-05-15 Completed [place] [facility] injectable, injectable, 00:00:00 Hospital Cli nics quadrivalent quadrivalent influenza, influenza, 2020-05-15 Completed [place] [facility] injectable, injectable, 00:00:00 Hospital Cli nics quadrivalent quadrivalent influenza, influenza, 2019-05-23 Completed [place] [facility] injectable, injectable, 00:00:00 Hospital Cli nics quadrivalent quadrivalent influenza, influenza, 2019-05-23 Completed [place] [facility] injectable, injectable, 00:00:00 Hospital Cli nics quadrivalent quadrivalent Hx influenza 2013-06-[address] [facility] vaccine-unspecified 18:59:36 <sup>1</sup> Vital Signs Vital Name Observation Time Observation Value Comments Source Heart rate 2021-08-12 17:46:00 63 /min [facility] Respiratory rate 2021-08-12 17:46:00 26 /[facility] O[facility] saturation in 2021-08-12 17:46:00 97 /min [facility] Arterial blood by [facility] Pulse oximetry Branch Systolic blood 2021-08-12 17:44:00 152 mm[Hg] Univer sity of pressure [facility] Diastolic blood 2021-08-12 17:44:00 84 mm[Hg] Unive rsity of pressure [facility] Body temperature 2021-08-12 17:29:00 36.22 [facility] Body height 2021-08-11 19:15:00 162.6 cm [facility] Body weight 2021-08-11 19:15:00 51.256 kg [facility] BMI 2021-08-11 19:15:00 19.40 kg/m2 [facility] [place] [facility] Systolic blood 2021-08-12 15:18:00 156 mm[Hg] Univer sity of pressure [place] [facility] Diastolic blood 2021-08-12 15:18:00 75 mm[Hg] Unive rsity of pressure [facility] Heart rate 2021-08-12 15:18:00 68 /min [facility] [place] [facility] Body temperature 2021-08-12 15:18:00 36.28 [facility] [place] [facility] Respiratory rate 2021-08-12 15:18:00 18 /min [facility] [place] [facility] Oxygen saturation in 2021-08-12 15:18:00 100 /min University of Arterial blood by [place] [employer] janey Pulse oximetry Branch Body height 2021-08-11 19:15:00 162.6 cm [facility] [place] [facility] Body weight 2021-08-11 19:15:00 51.256 kg [facility] [place] [facility] BMI 2021-08-11 19:15:00 19.40 kg/m2 [facility] [place] [facility] Systolic blood 2021-07-22 20:45:00 176 mm[Hg] Univer sity of pressure [facility] Diastolic blood 2021-07-22 20:45:00 90 mm[Hg] Unive rsity of pressure [facility] Heart rate 2021-07-22 20:45:00 76 /min [facility] [place] [facility] Respiratory rate 2021-07-22 20:45:00 18 /min [facility] [place] [facility] Oxygen saturation in 2021-07-22 20:45:00 95 /min University of Arterial blood by [place] [employer] janey Pulse oximetry Branch Body temperature 2021-07-22 18:24:00 36.39 [facility] [place] [facility] Body height 2021-07-20 17:00:00 167.6 cm [facility] [place] [facility] Body weight 2021-07-20 17:00:00 51.256 kg [facility] [place] [facility] BMI 2021-07-20 17:00:00 18.24 kg/m2 [facility] [place] [facility] Systolic blood 2021-07-22 18:24:00 157 mm[Hg] Univer sity of pressure [place] [facility] Diastolic blood 2021-07-22 18:24:00 74 mm[Hg] Unive rsity of pressure [facility] Heart rate 2021-07-22 18:24:00 65 /min [facility] Body temperature 2021-07-22 18:24:00 36.39 [facility] Univ ers[facility] Respiratory rate 2021-07-22 18:24:00 19 /min [facility] Oxygen saturation in 2021-07-22 18:24:00 100 /min [facility] Arterial blood by [facility] Pulse oximetry Branch Body height 2021-07-20 17:00:00 167.6 cm Universi ty [facility] Body weight 2021-07-20 17:00:00 51.256 kg Universi ty [facility] BMI 2021-07-20 17:00:00 18.24 kg/m2 Universi [facility] Systolic blood 2021-06-04 18:36:00 116 mm[Hg] [facility] Medicine Diastolic blood 2021-06-04 18:36:00 80 mm[Hg] [facility] Medicine Heart rate 2021-06-04 18:36:00 65 /min [facility] Respiratory rate 2021-06-04 18:36:00 16 /min [facility] Body height 2021-06-04 18:36:00 172.7 cm [facility] Body weight 2021-06-04 18:36:00 51.256 kg [facility] BMI 2021-06-04 18:36:00 17.18 kg/m2 [facility] BP Diastolic 2020-10-30 00:00:00 74 mm[Hg] [facility] Height 2020-10-30 00:00:00 63 [in_i] [facility] BMI (Body Mass 2020-10-30 00:00:00 21.3 kg/m2 [facility] BP Systolic 2020-10-30 00:00:00 120 mm[Hg] [facility] Body Weight 2020-10-30 00:00:00 1920 [oz_av] [facility] Respitory Rate 2022-10-02 07:00:00 Memori al [place] Systolic (mm Hg) 2022-10-02 07:00:00 Julio rial [place] Diastolic (mm Hg) 2022-10-02 07:00:00 Mem orial [place] Respitory Rate 2022-10-02 06:00:00 Memori al [place] Respitory Rate 2022-10-02 05:00:00 Memori al [place] Systolic (mm Hg) 2022-10-02 04:45:00 Julio rial [place] Diastolic (mm Hg) 2022-10-02 04:45:00 Mem orial [place] Height 2022-10-02 04:25:00 5 [ft_i] [facility] BMI Calculated 2022-10-02 04:25:00 Memori al [place] Weight 2022-10-02 04:25:00 [facility] [place] Systolic (mm Hg) 2022-10-02 04:15:00 Julio rial [place] Diastolic (mm Hg) 2022-10-02 04:15:00 Mem orial [place] Temperature Oral (F) 2022-10-02 04:00:00 97.1 F [facility] [place] Systolic (mm Hg) 2022-09-28 16:01:00 Julio rial [place] Diastolic (mm Hg) 2022-09-28 16:01:00 Mem orial [place] Heart Rate 2022-09-28 16:01:00 [facility] [place] Height 2022-09-28 16:01:00 5 [ft_i] [facility] [place] Weight 2022-09-28 16:01:00 [facility] [place] BMI Calculated 2022-09-28 16:01:00 Memori al [place] Systolic (mm Hg) 2022-07-27 16:40:00 Julio rial [place] Diastolic (mm Hg) 2022-07-27 16:40:00 Mem orial [place] Heart Rate 2022-07-27 16:40:00 [facility] [place] Height 2022-07-27 16:40:00 5 [ft_i] [facility] [place] Weight 2022-07-27 16:40:00 [facility] [place] BMI Calculated 2022-07-27 16:40:00 Memori al [place] Systolic (mm Hg) 2022-06-17 14:47:00 Julio rial [place] Diastolic (mm Hg) 2022-06-17 14:47:00 Mem orial [place] Heart Rate 2022-06-17 14:47:00 [facility] [place] Height 2022-06-17 14:47:00 5 [ft_i] [facility] [place] Weight 2022-06-17 14:47:00 [facility] [place] BMI Calculated 2022-06-17 14:47:00 Memori al [place] Systolic (mm Hg) 2022-05-06 15:56:00 Julio rial [place] Diastolic (mm Hg) 2022-05-06 15:56:00 Mem orial [place] Heart Rate 2022-05-06 15:56:00 [facility] [place] Respitory Rate 2022-05-06 15:56:00 Memori al [place] Height 2022-05-06 15:56:00 160.02 cm [facility] [place] Weight 2022-05-06 15:56:00 [facility] [place] BMI Calculated 2022-05-06 15:56:00 Memori al [place] Systolic (mm Hg) 2022-03-18 20:18:00 Julio rial [place] Diastolic (mm Hg) 2022-03-18 20:18:00 Mem orial [place] Heart Rate 2022-03-18 20:18:00 [facility] [place] Respitory Rate 2022-03-18 20:18:00 Memori al [place] Height 2022-03-18 20:18:00 160.02 cm [facility] [place] Weight 2022-03-18 20:18:00 [facility] [place] BMI Calculated 2022-03-18 20:18:00 Memori al [place] Respitory Rate 2022-01-10 14:00:00 Memori al [place] Systolic (mm Hg) 2022-01-10 14:00:00 Julio rial [place] Diastolic (mm Hg) 2022-01-10 14:00:00 Mem orial [place] Respitory Rate 2022-01-10 13:00:00 Memori al [place] Systolic (mm Hg) 2022-01-10 13:00:00 Julio rial [place] Diastolic (mm Hg) 2022-01-10 13:00:00 Mem orial [place] Temperature Oral (F) 2022-01-10 13:00:00 97.2 F [facility] [place] Respitory Rate 2022-01-10 12:00:00 Memori al [place] Systolic (mm Hg) 2022-01-10 12:00:00 Julio rial [place] Diastolic (mm Hg) 2022-01-10 12:00:00 Mem orial [place] Temperature Oral (F) 2022-01-10 09:00:00 96.8 F [facility] [place] Temperature Oral (F) 2022-01-10 04:35:00 96.9 F [facility] [place] Height 2022-01-07 16:23:00 165.1 cm [facility] [place] Weight 2022-01-07 16:23:00 [facility] [place] BMI Calculated 2022-01-07 16:23:00 Memori al [place] Heart Rate 2022-01-07 15:30:00 [facility] [place] Heart Rate 2022-01-07 15:15:00 [facility] [place] Heart Rate 2022-01-07 15:00:00 [facility] [place] Systolic (mm Hg) 2014-09-04 17:03:00 Julio rial [place] Diastolic (mm Hg) 2014-09-04 17:03:00 Mem orial [place] Temperature Oral (F) 2014-09-04 17:03:00 98.4 F [facility] [place] Heart Rate 2014-09-04 17:03:00 [facility] [place] Respitory Rate 2014-09-04 17:03:00 Memori al [place] Temperature Oral (F) 2014-09-04 13:21:00 98.4 F [facility] [place] Diastolic (mm Hg) 2014-09-04 13:21:00 Mem orial [place] Systolic (mm Hg) 2014-09-04 13:21:00 Julio rial [place] Heart Rate 2014-09-04 13:21:00 [facility] [place] Respitory Rate 2014-09-04 13:21:00 Memori al [place] Diastolic (mm Hg) 2014-09-04 10:50:00 Mem orial [place] Respitory Rate 2014-09-04 10:50:00 Memori al [place] Heart Rate 2014-09-04 10:50:00 [facility] [place] Systolic (mm Hg) 2014-09-04 10:50:00 Julio rial [place] Temperature Oral (F) 2014-09-04 10:50:00 98 F [facility] [place] Weight 2014-09-03 22:11:00 [facility] BMI Calculated 2014-09-03 22:11:00 [facility] Height 2014-09-03 22:11:00 172.72 cm [facility] Weight 2014-08-26 20:16:00 [facility] BMI Calculated 2014-08-26 20:16:00 [facility] [place] Height 2014-08-26 20:16:00 165.1 cm [facility] [place] Diastolic (mm Hg) 2014-03-09 15:07:00 [facility] [place] Systolic (mm Hg) 2014-03-09 15:07:00 [facility] Respitory Rate 2014-03-09 15:07:00 [facility] Temperature Oral (F) 2014-03-09 15:07:00 98.2 F [facility] Respitory Rate 2014-03-09 13:04:00 [facility] [place] Systolic (mm Hg) 2014-03-09 13:04:00 [facility] [place] Temperature Oral (F) 2014-03-09 13:04:00 97.4 F [facility] Diastolic (mm Hg) 2014-03-09 13:04:00 [facility] Systolic (mm Hg) 2014-03-09 06:57:00 [facility]io [facility] [place] Diastolic (mm Hg) 2014-03-09 06:57:00 [facility] Respitory Rate 2014-03-09 06:57:00 [facility] Temperature Oral (F) 2014-03-09 06:57:00 97.7 F [facility] [place] Heart Rate 2014-03-08 12:00:00 [facility] Heart Rate 2014-03-08 08:56:00 [facility] Heart Rate 2014-03-08 05:09:00 [facility] [place] Weight 2014-03-08 02:07:00 [facility] [place] BMI Calculated 2014-03-08 02:07:00 [facility] Height 2014-03-08 02:07:00 167.6 cm [facility] [place] Height 2014-03-07 18:35:00 167.64 cm [facility] BMI Calculated 2014-03-07 18:35:00 [facility] Weight 2014-03-07 18:35:00 [facility] Procedures Procedure Date / Time Performing Source Performed Clinician PHACOEMULSIFICATION OF 2021-08-12 Kianna Andrei Maira [facility] CATARACT WITH INTRAOCULAR 16:47:00 [facility] LENS IMPLANT ASSIGNMENT OF BENEFITS 2021-08-11 Doctor Unassmargi, [facility] 16:51:40 [facility] PHACOEMULSIFICATION OF 2021-07-22 Kianna Andrei Maira [facility] CATARACT WITH INTRAOCULAR 20:03:00 Medica l Branch LENS IMPLANT DAY SURGERY - [facility] 2021-07-22 Doctor Unassigned, [facility] 06:01:00 [facility] CONSENT/REFUSAL FOR DIAGNOSIS 2021-07-10 Doctor Unassigned, [facility] 19:36:28 [facility] CONSENT/REFUSAL FOR DIAGNOSIS 2021-07-10 Doctor Unassigned, [facility] 19:36:28 [facility] ASSIGNMENT OF BENEFITS 2021-07-10 Doctor Unassigned [facility] 19:36:09 [facility] ASSIGNMENT OF BENEFITS 2021-07-10 Doctor Unassigned, [facility] 19:36:09 [facility] NOTICE OF PRIVACY PRACTICES 2021-07-10 Doctor Unassigned, [facility] 19:35:46 [facility] NOTICE OF PRIVACY PRACTICES 2021-07-10 Doctor Unassigned, [facility] 19:35:46 [facility] CONSENT/REFUSAL FOR DIAGNOSIS 2021-07-10 Doctor Unassigned, [facility] 19:35:30 [facility] CONSENT/REFUSAL FOR DIAGNOSIS 2021-07-10 Doctor Unassigned, [facility] 19:35:30 [facility] ASSIGNMENT OF BENEFITS 2021-07-10 Doctor Unassigned, [facility] 19:35:07 [facility] ASSIGNMENT OF BENEFITS 2021-07-10 Doctor Unassigned, [facility] 19:35:07 [facility] PHYSICIAN ORDERS 2021-07-10 Doctor Unassigned, [facility] 06:01:00 [facility] PHYSICIAN ORDERS 2021-07-10 Doctor Unassigned, [facility] 06:01:00 [facility] Anterior repair<sup>1</sup> 2014-09-03 Julio Brody 06:00:00 Arthroplasty of toe 2001-08-22 Gabriela Her adam 06:00:00 Spinal cord 2000-08-22 Gabriela Brody implantation<sup>2, 3</sup> 06:00:00 Procedure on Foot [facility] Carpal Tunnel Surgery [facility] Thyroid Surgery [facility] Total Hysterectomy [facility] Tonsillectomy [facility] Hysterectomy [facility] Thyroidectomy [facility] [place] Plan of Care Planned Activity Planned Date Details Comments Source Future Scheduled 2021-06-04 TSH [code = 68194-2] Ordered: [employer] Test 14:10:16 06/04/2021 of Medicine Future Scheduled 2021-06-04 T4 FREE [code = Ordered: [facility] [employer] Test 14:10:16 3024-7] 06/04/2021 of Medicine Future Scheduled 2021-06-04 THYROID ANTIBODY Ordered: [facility] CNG-One Test 14:10:16 GROUP (TPO + TG) 06/04/2021 of Medicine [code = NOCPT] Future Scheduled 2021-06-04 T3 [code = 3053-6] Ordered: [employer] Test 14:10:16 06/04/2021 of Medicine Future Scheduled 2021-06-04 Screening for [facility] [employer] Test 13:38:30 malignant neoplasm of Medici ne of colon (procedure) [code = 577389448] Future Scheduled 2021-06-04 Screening for [facility] [employer] Test 13:38:30 malignant neoplasm of Medici ne of breast (procedure) [code = 888514040] Future Scheduled 2021-06-04 TETANUS SHOT (ADULT) [employer] Test 13:38:30 [code = TETANUS SHOT of Medi cine (ADULT)] Future Scheduled 2021-06-04 Hepatitis C [facility] Susi ege Test 13:38:30 screening of Medicine (procedure) [code = 004709823] Future Scheduled 2021-06-04 ZOSTER VACCINE (1 of [employer] Test 13:38:30 2) [code = ZOSTER of Medicin e VACCINE (1 of 2)] Future Scheduled 2021-06-04 FALL SCREEN [code = [employer] Test 13:38:30 FALL SCREEN] of Medicine Future Scheduled 2021-06-04 Screening for [facility] [employer] Test 13:38:30 osteoporosis of Medicine (procedure) [code = 236937028] Future Scheduled 2021-06-04 PNEUMOVAX >=65 [facility] [employer] Test 13:38:30 (PPSV23) [code = of Medicine PNEUMOVAX >=65 (PPSV23)] Future Scheduled 2021-06-04 FLU VACCINE > 6 [facility] [employer]lege Test 13:38:30 MONTHS [code = FLU of Medici ne VACCINE > 6 MONTHS] Diagnostic Test 2020-10-30 TSH + free T4, serum [facility] Pending 00:00:00 [code = TSH + free Hospital Clinics T4, serum] Encounters Start End Encounter Admission Attending Care Care Encounter Source Date/Time Date/Time Type Type Clinicians Facility Department ID 2022-10-04 Outpatient [facility] [id number] [place] 14:01:[id number] [place] [address] 2022-02-01 Outpatient [facility] [id number] [place] 13:13:41 [facility] [id number] [facility] 2022-01-13 Outpatient Peña, [facility] [id number] Common 13:10:02 [facility] 2022-01-13 [facility] [id number] [place] 10:17:29 [facility] [id number] [facility] 2022-01-11 Outpatient [facility] [id number] [place] 07:56:59 [id number] [facility] 2021-10-30 Outpatient Peña, [facility] [id number] Common 13:26:01 [facility] 2021-10-05 Outpatient Peña, [facility] [id number] Common 09:56:03 [facility] 2023-01-26 2023-01-26 Outpatient COSME AGUIAR [id number] [facility] 10:30:00 10:30:[address] [place] [address] 2022-10-02 2022-10-02 Emergency COSME Ochoa [id number] Memoria 03:23:00 08:56:[address] 2022-10-01 2022-10-02 Outpatient Rafael, [facility] [id number] 21:23:00 02:56:00 [place] 67 2022-10-01 2022-10-02 Outpatient Rafael [facility] [id number] 21:23:00 02:56:00 [place] 67 2022-09-28 2022-09-29 Outpatient MHIE MNA [id number] [facility] 16:00:00 05:59:59 Neurology 05 yarely Brody 2022-09-28 2022-09-28 [id number] 10:00:00 23:59:59 Param 05 Isrrael 2022-09-28 2022-09-28 Outpatient MHIE MHIE [id number] [facility] 10:00:00 10:00:00 05 yarely Brody 2022-07-27 2022-07-28 Outpatient MHIE MNA [id number] [facility] 16:45:00 05:59:59 Neurology 04 yarely [facility] 2022-07-27 2022-07-27 [facility] [id number] 10:45:00 23:59:59 Param 04 Isrrael 2022-07-27 2022-07-27 Outpatient MHIE MHIE [id number] [facility] 10:45:00 10:45:00 04 yarely RichardRonn 2022-06-17 2022-06-18 Outpatient nullFlavo MNA [id number] [facility] 14:15:00 04:59:59 r Neurology 03 yarely [place] [facility] 2022-06-17 2022-06-17 [facility] [id number] 09:15:00 23:59:59 Param 03 Isrrael 2022-06-17 2022-06-17 Outpatient MHIE MHIE [id number] [facility] 09:15:00 09:15:00 03 yarely Ronn 2022-05-06 2022-05-07 Outpatient nullFlavo MNA [id number] [facility] 15:30:00 04:59:59 r Neurology 02 yarely Renée Brody 2022-05-06 2022-05-06 [facility] [id number] 10:30:00 23:59:59 Param 02 Isrrael 2022-05-06 2022-05-06 Outpatient MHIE MHIE [id number] [facility] 10:30:00 10:30:00 02 yarely Ronn 2022-03-30 2022-03-31 Outpatient nullFlavo MNA [id number] [facility] 18:30:00 04:59:59 r Neurology 01 l Renée Brody 2022-03-30 2022-03-30 [id number] 13:30:00 23:59:59 Param 01 Isrrael 2022-03-30 2022-03-30 Outpatient MHIE MHIE [id number] [facility] 13:30:00 13:30:00 01 yarely Brody 2022-03-18 2022-03-19 Outpatient nullFlavo MNA [id number] [facility] 20:15:00 04:59:59 r Neurology 00 l Renée Ronn 2022-03-18 2022-03-18 [id number] 15:15:00 23:59:59 Param 00 Isrrael 2022-03-18 2022-03-18 Outpatient MHIE IE [id number] [facility] 15:15:00 15:15:00 00 yarely Brody 2022-01-07 2022-01-10 Inpatient nullFlavo [facility] [id number] Memoria 14:53:00 15:15:00 camelia Brody 67 [facility] 2022-01-07 2022-01-10 Inpatient E ROHINI [facility] [id number] [facility] 10:53:00 10:15:00 KAM 2022-01-07 2022-01-10 Outpatient Rohini, [facility] [id number] 09:53:00 10:15:00 Kam Mi 2022-01-07 2022-01-10 Outpatient Rohini, [facility] [id number] 09:53:00 10:15:00 Kam Mi 2022-01-07 2022-01-07 Outpatient CRISTY [facility] [id number] [facility] 10:46:00 23:59:00 BRENDA 2021-08-12 2021-08-[address] OPH [id number] Univers 09:05:00 11:59:00 ANDREI betty [facility] 2021-08-12 2021-08-12 Hospital [facility] [id number] Univers 09:05:00 11:59:00 Encounter Andrei ESTEVEZ 350[place]1.13.10 [place] [id number] [facility] [address] [place] 2021-08-12 2021-08-12 Surgery [facility] [id number] Univers 10:14:00 10:55:00 Andrei ESTEVEZ 350.1.13.10 [place] [id number] [facility] 020 Branch 2021-08-11 2021-08-11 Laboratory Only, Adc Test [facility] 1.2.840. 114 [id number] Univers 11:15:00 11:30:00 Only Kurtis Harp 350.1.13.10 [place] [id number] [facility] 353 Branch 2021-08-11 2021-08-11 Outpatient Camelia HARP [facility] [id number] Univers 11:15:00 11:15:00 KURTIS tellez [facility] 2021-08-11 2021-08-11 Orders Doctor SMITH 1.2.840.114 [id number] Univers 00:00:00 00:00:00 Only Unassigned, BRAD 350.1.13.10 [place] [facility] 4.2.7.2.686 Aden as [id number] [facility] 009 Branch 2021-07-22 2021-07-[address] OPH [id number] Univers 12:17:00 15:18:00 ANDREI tellez [facility] 2021-07-22 2021-07-22 [facility] [id number] Univers 12:17:00 15:18:00 Encounter Andrei ESTEVEZ 350.1.13.10 [place] of [place] [id number] [facility] 071 Branch 2021-07-22 2021-07-22 Surgery Kianna [facility] 1.2.840.114 [id number] Univers 13:39:00 14:20:00 Andrei ESTEVEZ 350.1.13.10 [place] [id number] [facility] 020 Branch 2021-07-22 2021-07-22 Orders Doctor SARAH [id number] [id number] Univers 00:00:00 00:00:00 Only Unassigned, BRAD 350.1.13.10 ity of [place] [facility] 4.2.7.2.686 Aden as [id number] [facility] [address] 2021-07-10 2021-07-10 Hoop Rolls Operator [place], Adc Lab Main [facility] 1.2.8 40.114 [id number] Univers 13:37:58 13:52:58 Visit Andrei Delgadillo 350.1.13.1 0 [place] PROFESS[place] [id number] [facility] 2021-07-10 2021-07-10 Outpatient Camelia DELGADILLO [facility] [id number] [facility] 12:15:00 12:15:00 ANDREI tellez [facility] 2021-06-29 2021-06-29 Outpatient SUYAPA HUDSON [id number] [place] 10:00:00 10:00:00 KARIME murphy 2021-06-04 2021-06-04 Office RADHA, JOSE ALFREDO LARA 1.2.840.114 [id number] [facility] 13:07:24 15:01:48 Visit AMBULATOR 350.1.13.21 College Y 0.2.7.2.686 of [id number] [facility] 310 e 2020-10-30 2020-10-30 Outpatient ERICKSON_R [facility] [id number] [place] 11:50:00 11:50:00 [facility] 2020-10-30 2020-10-30 Dwayne [facility] [place] [facility] [place] 11 [place] 00:00:00 00:00:00 [facility] DO[facility] [address] [facility] [address] s [place], [place], [id number] DARIANA , Ph. 2020-10-30 2020-10-30 Outpatient Dariana [facility] [id number] 00:00:00 00:00:00 Dwayne [id number] Mike [id number] 2020-10-30 2020-10-30 Outpatient Dariana [facility] [id number] 00:00:00 00:00:00 Dwayne [id number] Mike [id number] 2020-02-15 2020-02-15 Outpatient DARIANA_R [facility] [id number] [place] 12:02:00 12:02:00 626 Commun i ty Hospita [facility] 2014-09-03 2014-09-04 Inpatient nullFlavo [facility] [id number] Memoria 14:39:00 20:08:00 [facility] 2014-09-03 2014-09-04 Outpatient Jn, 2.16.840. 2.16.840.1. [id number] 08:39:00 14:08:00 Nicole [id number]. [id number] Willy 3.615.0.1 5.0.459 82 [id number] 2014-03-09 OBS nullFlavo [facility] [id number] [facility] 18:01:00 19:39:00 Observatio camelia Brody 00 l n Patient [facility] 2014-03-07 2014-03-09 Outpatient Maxime, 2.16.840. 2.16.840.1. 4 [id number] 13:01:00 14:39:00 Ryan Hernandez [id number]. [id number] 3.615.0.1 5.0.101 01 Results Test Description Test Time Test Comments Results Result Comments Source Culture: Urine 2022-10-02 06:31:00 Test Item Value Reference Range Interpretation Comme nts Culture: Urine (test code = Culture: >100,000 CFU/mL Escherichia co li Urine) Sensitivity Pending [facility] [id number] 04:36:00 Test Item Value Reference Range Interpretation Comments UA Sq Epi (test code = UA Sq Occasional /LPF Epi) [facility] [id number] 04:36:00 Test Item Value Reference Range Interpretation Comments UA WBC (test code = 141 See_Comment [Automa tanner message] The UA WBC) system which ge nerated this result transmit tanner reference range : <=5. The reference range was not used to interpr et this result as tyshawn l/abnormal. [facility] [id number] 04:36:00 Test Item Value Reference Range Interpretation Comments UA RBC (test code = 19 See_Comment [Automa tanner message] The UA RBC) system which ge nerated this result transmit tanner reference range : <=2. The reference range was not used to interpr et this result as tyshawn l/abnormal. [facility] [id number] 04:36:00 Test Item Value Reference Range Interpretation Comments UA Bacteria (test code = UA Many /HPF Bacteria) [facility] [id number] 04:36:00 Test Item Value Reference Range Interpretation Comments UA Mucus (test code = UA Mucus) Few /LPF [facility] [id number] 04:36:00 Test Item Value Reference Range Interpretation Comments UA CaOx Gina (test code = UA Occasional /HPF CaOx Gina) [facility] [id number] 04:36:00 Test Item Value Reference Range Interpretation Comments UA Trans Epi (test code = UA Trans Epi) 1 [facility] [id number] 04:36:00 Test Item Value Reference Range Interpretation Comments UA Color (test code = Yellow *NA*(10/01/22 UA Color) 10:36 PM) [facility] [id number] 04:36:00 Test Item Value Reference Range Interpretation Comments UA Turbidity (test code Slight Cloudy = UA Turbidity) (10/01/22 10:36 PM) [facility] [id number] 04:36:00 Test Item Value Reference Range Interpretation Comments UA Spec Grav (test code = UA Spec 1.010 1 Grav) [facility] [id number] 04:36:00 Test Item Value Reference Range Interpretation Comments UA pH (test code = UA pH) 5.5 1 5.0-8.0 [facility] [id number] 04:36:00 Test Item Value Reference Range Interpretation Comments UA Protein (test code Negative (10/01/22 10:36 = UA Protein) PM) [facility] [id number] 04:36:00 Test Item Value Reference Range Interpretation Comments UA Glucose (test code Negative (10/01/22 10:36 = UA Glucose) PM) [facility] [id number] 04:36:00 Test Item Value Reference Range Interpretation Comments UA Ketones (test code Negative *NA*(10/01/22 = UA Ketones) 10:36 PM) [facility] [id number] 04:36:00 Test Item Value Reference Range Interpretation Comments UA Bili (test code = Negative *NA*(10/01/22 UA Bili) 10:36 PM) [facility] [id number] 04:36:00 Test Item Value Reference Range Interpretation Comments UA Blood (test code = Trace *ABN*(10/01/22 UA Blood) 10:36 PM) [facility] [id number] 04:36:00 Test Item Value Reference Range Interpretation Comments UA Urobilinogen (test code = UA 0.2 0.1-1.0 Urobilinogen) [facility] [id number] 04:36:00 Test Item Value Reference Range Interpretation Comments UA Nitrite (test code Positive *ABN*(10/01/22 = UA Nitrite) 10:36 PM) [facility] [id number] 04:36:00 Test Item Value Reference Range Interpretation Comments UA Leuk Est (test Moderate *ABN*(10/01/22 code = UA Leuk Est) 10:36 PM) [facility] [id number] 04:36:00 Test Item Value Reference Range Interpretation Comments HS Troponin I 1 Hr (test code = HS 6 Troponin I 1 Hr) [facility] [id number] 04:36:00 Test Item Value Reference Range Interpretation Comments HS Troponin I 0 to 1 Hour Delta (test -1 code = HS Troponin I 0 to 1 Hour Delta) Memorial [id number] 04:36:00 Test Item Value Reference Range Interpretation Comments HS Troponin I 1 Hr (test code = HS 6 Troponin I 1 Hr) Memorial [id number] 04:36:00 Test Item Value Reference Range Interpretation Comments HS Troponin I 0 to 1 Hour Delta (test -1 code = HS Troponin I 0 to 1 Hour Delta) [facility] [id number] 04:36:00 Test Item Value Reference Range Interpretation Comments UA Sq Epi (test code = UA Sq Occasional /LPF Epi) [facility] [id number] 04:36:00 Test Item Value Reference Range Interpretation Comments UA WBC (test code = 141 See_Comment [Automa tanner message] The UA WBC) system which ge nerated this result transmit tanner reference range : <=5. The reference range was not used to interpr et this result as tyshawn l/abnormal. [facility] [id number] 04:36:00 Test Item Value Reference Range Interpretation Comments UA RBC (test code = 19 See_Comment [Automa tanner message] The UA RBC) system which ge nerated this result transmit tanner reference range : <=2. The reference range was not used to interpr et this result as tyshawn l/abnormal. [facility] [id number] 04:36:00 Test Item Value Reference Range Interpretation Comments UA Bacteria (test code = UA Many /HPF Bacteria) [facility] [id number] 04:36:00 Test Item Value Reference Range Interpretation Comments UA Mucus (test code = UA Mucus) Few /LPF [facility] [id number] 04:36:00 Test Item Value Reference Range Interpretation Comments UA CaOx Gina (test code = UA Occasional /HPF CaOx Gina) [facility] [id number] 04:36:00 Test Item Value Reference Range Interpretation Comments UA Trans Epi (test code = UA Trans Epi) 1 [facility] [id number] 04:36:00 Test Item Value Reference Range Interpretation Comments UA Color (test code = Yellow *NA*(10/01/22 UA Color) 10:36 PM) [facility] AND [id number] 04:36:00 Test Item Value Reference Range Interpretation Comments UA Turbidity (test code Slight Cloudy = UA Turbidity) (10/01/22 10:36 PM) [facility] AND [id number] 04:36:00 Test Item Value Reference Range Interpretation Comments UA Spec Grav (test code = UA Spec 1.010 1 Grav) [facility] AND [id number] 04:36:00 Test Item Value Reference Range Interpretation Comments UA pH (test code = UA pH) 5.5 1 5.0-8.0 [facility] AND [id number] 04:36:00 Test Item Value Reference Range Interpretation Comments UA Protein (test code Negative (10/01/22 10:36 = UA Protein) PM) [facility] AND [id number] 04:36:00 Test Item Value Reference Range Interpretation Comments UA Glucose (test code Negative (10/01/22 10:36 = UA Glucose) PM) [facility] AND [id number] 04:36:00 Test Item Value Reference Range Interpretation Comments UA Ketones (test code Negative *NA*(10/01/22 = UA Ketones) 10:36 PM) [facility] AND [id number] 04:36:00 Test Item Value Reference Range Interpretation Comments UA Bili (test code = Negative *NA*(10/01/22 UA Bili) 10:36 PM) [facility] AND [id number] 04:36:00 Test Item Value Reference Range Interpretation Comments UA Blood (test code = Trace *ABN*(10/01/22 UA Blood) 10:36 PM) [facility] AND [id number] 04:36:00 Test Item Value Reference Range Interpretation Comments UA Urobilinogen (test code = UA 0.2 0.1-1.0 Urobilinogen) [facility] AND [id number] 04:36:00 Test Item Value Reference Range Interpretation Comments UA Nitrite (test code Positive *ABN*(10/01/22 = UA Nitrite) 10:36 PM) Gabriela [id number] 04:36:00 Test Item Value Reference Range Interpretation Comments UA Leuk Est (test Moderate *ABN*(10/01/22 code = UA Leuk Est) 10:36 PM) Gabriela [id number] 04:23:45 Test Item Value Reference Range Interpretation Comments RADRPT (test code = EXAM: XR CHEST AP 1 RADRPT) VIEWDATE: 10/01/2022 21:49 INDICATION: - L sided weaknessCOMPARISON: NoneTECHNIQUE: Chest AP -- 1 ViewFINDINGS: Spinal stimulation electrode present over the lower thoracic spine.Left posterior oblique rotation noted.Cardiac silhouette size is normal.Central pulmonary vascularity is within normal limits.Mediastinal and hilar contours are normal.Minimal left basilar subsegmental atelectasis noted.No airspace consolidation, pleural effusion, or pneumothorax present.Skeletal structures demonstrate no acute findings.Diffuse osteopenia noted.Mild degenerative disk disease is present.IMPRESSION:Minima l left basilar subsegmental atelectasis. 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 3-D CT angiographic images are created using MIP technique at the acquisition workstation. The source images are also presented for interpretation. Viz. was used in the care of this patient.IV contrast: Refer to MAR/instrumentation technologist documentationDLP: Refer to CT protocol formFINDINGS:NECK CTA:Aortic arch: The great vessels originate from the aortic arch in the standard configuration. No origin stenosis is identified.Common carotid arteries: Normal.Internal carotid arteries:* Right: There are areas of intimal thickening and calcification in the carotid bulb and bifurcation, but there is no stenosis by NASCET criteria.* Left: Normal. Curvilinear attenuation within the lumen of the left common carotid bifurcation extending into the proximal most portion of the cervical internal carotid artery is likely flow-related artifact.* Minimal calcification in the carotid siphons.Vertebral arteries: Minimal opacification at the right V3-V4 junction.Other: Bilateral ocular lens replacements. Presumed cerumen within the external auditory canals. Severely atrophic versus surgically absent thyroid parenchyma.BRAIN CTA:Arteries: The anterior and posterior circulations have a normal appearance. No branch occlusion, vascular injury, arteritis, vascular malformation or aneurysm is identified.Veins: To the degree that the deep cerebral veins and major dural venous sinuses are opacified, there are unremarkable in appearance.Brain parenchyma: As reported on the concurrent noncontrast head CT.IMPRESSION: No large vessel occlusion or hemodynamically significant stenosis of the head or neck arteries. [facility]Tkn[facility]edNXKYAJUMJI3010-39-81 03:53:00 Test Item Value Reference Range Interpretation Comments Coronavirus (COVID-19) Not Detected (10/01/22 DYLAN (test code = 9:53 PM) Coronavirus (COVID-19) DYLAN) 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 Sagittal and coronal reformats.IV contrast: NoneDLP: Refer to CT protocol formFINDINGS: Non-contrast images of the head demonstrate no edema, hemorrhage, mass lesion or other acute intracranial abnormality. The ventricles and sulci are prominent as are result of volume loss.The skull base, calvarium, and included facial bones are unremarkable. The paranasal sinuses are predominantly clear.ASPECTS: 10Laterality: noneCaudate: normalInternal capsule: normalLenticular: normalInsula: normalM1: normal M2: normal M3: normalM4: normal M5: normal M6: normalIMPRESSION: No sign of acute cortical infarct or parenchymal hemorrhage. Minimal generalized volume loss. [facility]2023-02-11 03:26:00 Test Item Value Reference Range Interpretation Comments Total CK (test code = Total CK) 70 12-191 [facility] NXQLLPJ9954[facility]18-38 03:26:00 Test Item Value Reference Range Interpretation Comments HS Troponin I Baseline (test code = HS 7 Troponin I Baseline) [facility] [id number] 03:26:00 Test Item Value Reference Range Interpretation Comments Glucose Lvl (test code = Glucose Lvl) 145 70-99 [facility]2023-02-11 03:26:00 Test Item Value Reference Range Interpretation Comments BUN (test code = BUN) 13 7-22 [facility]2023-02-11 03:26:00 Test Item Value Reference Range Interpretation Comments Creatinine Lvl (test code = Creatinine 0.77 0.50-1.40 Lvl) [facility]2023-02-11 03:26:00 Test Item Value Reference Range Interpretation Comments Sodium Lvl (test code = Sodium Lvl) 141 135-145 [facility]2023-02-11 03:26:00 Test Item Value Reference Range Interpretation Comments Potassium Lvl (test code = Potassium 4.7 3.5-5.1 Lvl) [facility]2023-02-11 03:26:00 Test Item Value Reference Range Interpretation Comments Chloride Lvl (test code = Chloride Lvl) 110 95-109 [facility]2023-02-11 03:26:00 Test Item Value Reference Range Interpretation Comments CO2 (test code = CO2) 24 24-32 [facility]2023-02-11 03:26:00 Test Item Value Reference Range Interpretation Comments Calcium Lvl (test code = Calcium Lvl) 9.4 8.5-10.5 [facility]2023-02-11 03:26:00 Test Item Value Reference Range Interpretation Comments AGAP (test code = AGAP) 11.7 10.0-20.0 [facility]2023-02-11 03:26:00 Test Item Value Reference Range Interpretation Comments eGFR (test code = eGFR) 80 [facility]IC[facility]DLUPX8915[facility]52-64 03:26:00 Test Item Value Reference Range Interpretation Comments Glucose Lvl (test code = Glucose Lvl) 145 70-99 [facility] HospitalFxainrkCPLKPFNKO5558-71-44 03:26:00 Test Item Value Reference Range Interpretation Comments BUN (test code = BUN) 13 7-22 [facility] HospitalOjfkwfgAZYYEPKHQ3300-90-71 03:26:00 Test Item Value Reference Range Interpretation Comments Creatinine Lvl (test code = Creatinine 0.77 0.50-1.40 Lvl) [facility] HospitalAqjxrxwMLIECGFDY7685-69-56 03:26:00 Test Item Value Reference Range Interpretation Comments Sodium Lvl (test code = Sodium Lvl) 141 135-145 [place] 793883-02-11 03:26:00 Test Item Value Reference Range Interpretation Comments Potassium Lvl (test code = Potassium 4.7 3.5-5.1 Lvl) [facility] HospitalDqigmakMXLOWDDYF2516-23-79 03:26:00 Test Item Value Reference Range Interpretation Comments Chloride Lvl (test code = Chloride Lvl) 110 95-109 [facility] HospitalAgqthqmSTJTMVPLA5623-59-61 03:26:00 Test Item Value Reference Range Interpretation Comments CO2 (test code = CO2) 24 24-32 [facility] HospitalVnbhrdiKCNULGEKX3372-16-30 03:26:00 Test Item Value Reference Range Interpretation Comments Calcium Lvl (test code = Calcium Lvl) 9.4 8.5-10.5 [facility] HospitalEyktfzoTWEOZTCIO8920-06-65 03:26:00 Test Item Value Reference Range Interpretation Comments AGAP (test code = AGAP) 11.7 10.0-20.0 [facility] HospitalGfdrdmlJXHPMRRPR2132-47-32 03:26:00 Test Item Value Reference Range Interpretation Comments eGFR (test code = eGFR) 80 [facility] HospitalWdypsapETJEXSDRO7841-62-61 03:26:00 Test Item Value Reference Range Interpretation Comments Total CK (test code = Total CK) 70 12-191 [place] 793883-02-11 03:26:00 Test Item Value Reference Range Interpretation Comments HS Troponin I Baseline (test code = HS 7 Troponin I Baseline) [facility]WxwriseXNVHRHXTSM0247-99-19 03:26:00 Test Item Value Reference Range Interpretation Comments WBC X 10x3 (test code = WBC X 10x3) 11.2 3.7-10.4 [place] 037903-02-11 03:26:00 Test Item Value Reference Range Interpretation Comments RBC X 10x6 (test code = RBC X 10x6) 4.64 4.20-5.40 [place] 037903-02-11 03:26:00 Test Item Value Reference Range Interpretation Comments Hgb (test code = Hgb) 12.8 12.0-16.0 [place] 037903-02-11 03:26:00 Test Item Value Reference Range Interpretation Comments Hct (test code = Hct) 39.3 36.0-48.0 [place] 037903-02-11 03:26:00 Test Item Value Reference Range Interpretation Comments MCV (test code = MCV) 84.8 80.0-98.0 [place] 037903-02-11 03:26:00 Test Item Value Reference Range Interpretation Comments MCH (test code = MCH) 27.6 pg 27.0-31.0 [facility] HospitalCjwbvfvFCQCACEZRG7960-52-15 03:26:00 Test Item Value Reference Range Interpretation Comments MCHC (test code = MCHC) 32.6 32.0-36.0 [place] 037903-02-11 03:26:00 Test Item Value Reference Range Interpretation Comments RDW (test code = RDW) 13.6 11.5-14.5 [place] 037903-02-11 03:26:00 Test Item Value Reference Range Interpretation Comments Platelet (test code = Platelet) 322 133-450 [facility] HospitalQexuabxLZRBTZOGYW4164-26-22 03:26:00 Test Item Value Reference Range Interpretation Comments MPV (test code = MPV) 8.8 7.4-10.4 [place] [address]-02-11 03:26:00 Test Item Value Reference Range Interpretation Comments PT (test code = PT) 13.3 s 12.0-14.7 [place] [address]-02-11 03:26:00 Test Item Value Reference Range Interpretation Comments INR (test code = INR) 1.01 1 0.85-1.17 [place] [address]-02-11 03:26:00 Test Item Value Reference Range Interpretation Comments PTT (test code = PTT) 26.1 s 22.9-35.8 [place] [address]-02-11 03:26:00 Test Item Value Reference Range Interpretation Comments Segs (test code = Segs) 74.7 45.0-75.0 [place] [address]-02-11 03:26:00 Test Item Value Reference Range Interpretation Comments Lymphocytes (test code = Lymphocytes) 16.9 20.0-40.0 [place] 037903-02-11 03:26:00 Test Item Value Reference Range Interpretation Comments Monocytes (test code = Monocytes) 6.2 2.0-12.0 [place] 037903-02-11 03:26:00 Test Item Value Reference Range Interpretation Comments Eosinophils (test code = 1.7 See_Comment [A utomated message] The Eosinophils) system which ge nerated this result tra nsmitted reference range : <=4.0. The reference r [place] was not used to int erpret this result as normal/abnormal . [place] 037903-02-11 03:26:00 Test Item Value Reference Range Interpretation Comments Basophils (test code = 0.5 See_Comment [Aut omated message] The Basophils) system which ge nerated this result tra nsmitted reference range : <=1.0. The reference r [place] was not used to int erpret this result as normal/abnormal . [facility] HospitalNvrxfciKVZUTRFGEW1977-91-08 03:26:00 Test Item Value Reference Range Interpretation Comments Neutrophils # (test code = Neutrophils 8.4 1.5-8.1 #) [facility] HospitalAbljtetAJYDXJNJUN0094-56-86 03:26:00 Test Item Value Reference Range Interpretation Comments Lymphocytes # (test code = Lymphocytes 1.9 1.0-5.5 #) [facility] HospitalGsteubhEGXEBODMZR8676-57-63 03:26:00 Test Item Value Reference Range Interpretation Comments Monocytes # (test code 0.7 See_Comment [Aut omated message] The = Monocytes #) system which generated this result tra nsmitted reference range : <=0.8. The reference r adkota was not used to int erpret this result as normal/abnormal . [place] 037903-02-11 03:26:00 Test Item Value Reference Range Interpretation Comments Eosinophils # (test code 0.2 See_Comment [A utomated message] The = Eosinophils #) system whic h generated this result tra nsmitted reference range : <=0.5. The reference r [place] was not used to int erpret this result as normal/abnormal . [facility] HospitalVxljxvuXIISHOMKMP1507-55-15 03:26:00 Test Item Value Reference Range Interpretation Comments Basophils # (test code 0.1 See_Comment [Aut omated message] The = Basophils #) system which generated this result tra nsmitted reference range : <=0.2. The reference r [place] was not used to int erpret this result as normal/abnormal . [facility] HospitalYjalfdeCONEWIQWEH7229-70-55 03:26:00 Test Item Value Reference Range Interpretation Comments WBC X 10x3 (test code = WBC X 10x3) 11.2 3.7-10.4 [facility] HospitalNqzszjiWDUWVMPDAJ5815-66-91 03:26:00 Test Item Value Reference Range Interpretation Comments RBC X 10x6 (test code = RBC X 10x6) 4.64 4.20-5.40 [place] 037903-02-11 03:26:00 Test Item Value Reference Range Interpretation Comments Hgb (test code = Hgb) 12.8 12.0-16.0 [facility] HospitalQsdvbmjWRXMQADTIZ3193-98-77 03:26:00 Test Item Value Reference Range Interpretation Comments Hct (test code = Hct) 39.3 36.0-48.0 [facility] HospitalThliyrwYODOVOXZZR2376-91-98 03:26:00 Test Item Value Reference Range Interpretation Comments MCV (test code = MCV) 84.8 80.0-98.0 [facility] HospitalUemiydcIXAVIASBWK2163-97-93 03:26:00 Test Item Value Reference Range Interpretation Comments MCH (test code = MCH) 27.6 pg 27.0-31.0 [facility] HospitalJdncspoHTYWHNJIWD4038-04-60 03:26:00 Test Item Value Reference Range Interpretation Comments MCHC (test code = MCHC) 32.6 32.0-36.0 [facility] HospitalYjimvkuCILITJOMHW9409-97-55 03:26:00 Test Item Value Reference Range Interpretation Comments RDW (test code = RDW) 13.6 11.5-14.5 [facility] HospitalQixpjvzOCCRDAKQXO1947-79-83 03:26:00 Test Item Value Reference Range Interpretation Comments Platelet (test code = Platelet) 322 133-450 [facility] HospitalEtphkosBIFBFBKZOJ2909-32-25 03:26:00 Test Item Value Reference Range Interpretation Comments MPV (test code = MPV) 8.8 7.4-10.4 [facility] HospitalBhcfeelIZCGDDZFLJ7456-94-88 03:26:00 Test Item Value Reference Range Interpretation Comments PT (test code = PT) 13.3 s 12.0-14.7 [place] 037903-02-11 03:26:00 Test Item Value Reference Range Interpretation Comments INR (test code = INR) 1.01 1 0.85-1.17 [place] 037903-02-11 03:26:00 Test Item Value Reference Range Interpretation Comments PTT (test code = PTT) 26.1 s 22.9-35.8 [place] 037903-02-11 03:26:00 Test Item Value Reference Range Interpretation Comments Segs (test code = Segs) 74.7 45.0-75.0 [place] 037903-02-11 03:26:00 Test Item Value Reference Range Interpretation Comments Lymphocytes (test code = Lymphocytes) 16.9 20.0-40.0 [place] [address]-02-11 03:26:00 Test Item Value Reference Range Interpretation Comments Monocytes (test code = Monocytes) 6.2 2.0-12.0 [place] 037903-02-11 03:26:00 Test Item Value Reference Range Interpretation Comments Eosinophils (test code = 1.7 See_Comment [A utomated message] The Eosinophils) system which ge nerated this result tra nsmitted reference range : <=4.0. The reference r [place]ak[place] was not used to int erpret this result as normal/abnormal . [place] 037903-02-11 03:26:00 Test Item Value Reference Range Interpretation Comments Basophils (test code = 0.5 See_Comment [Aut omated message] The Basophils) system which ge nerated this result tra nsmitted reference range : <=1.0. The reference r d[place] was not used to int erpret this result as normal/abnormal . [place] 037903-02-11 03:26:00 Test Item Value Reference Range Interpretation Comments Neutrophils # (test code = Neutrophils 8.4 1.5-8.1 #) [place] 037903-02-11 03:26:00 Test Item Value Reference Range Interpretation Comments Lymphocytes # (test code = Lymphocytes 1.9 1.0-5.5 #) [place] 037903-02-11 03:26:00 Test Item Value Reference Range Interpretation Comments Monocytes # (test code 0.7 See_Comment [Aut omated message] The = Monocytes #) system which generated this result tra nsmitted reference range : <=0.8. The reference r dak[place] was not used to int erpret this result as normal/abnormal . [place] 037903-02-11 03:26:00 Test Item Value Reference Range Interpretation Comments Eosinophils # (test code 0.2 See_Comment [A utomated message] The = Eosinophils #) system whic h generated this result tra nsmitted reference range : <=0.5. The reference r dak[place] was not used to int erpret this result as normal/abnormal . [facility] HospitalOokzzsiKWTINHOSDO9029-68-34 03:26:00 Test Item Value Reference Range Interpretation Comments Basophils # (test code 0.1 See_Comment [Aut omated message] The = Basophils #) system which generated this result tra nsmitted reference range : <=0.2. The reference r dak[place] was not used to int erpret this result as normal/abnormal . [facility]2023-02-11 03:25:00 Test Item Value Reference Range Interpretation Comments Glucose POC (test code = Glucose POC) 141 70-99 [place] 720782-05-22 07:20:00 Test Item Value Reference Range Interpretation Comments Glucose Lvl (test code = Glucose Lvl) 111 70-99 [place] 720782-05-22 07:20:00 Test Item Value Reference Range Interpretation Comments BUN (test code = BUN) 11 7-22 [place] 720782-05-22 07:20:00 Test Item Value Reference Range Interpretation Comments Creatinine Lvl (test code = Creatinine 0.76 0.50-1.40 Lvl) [place] 720782-05-22 07:20:00 Test Item Value Reference Range Interpretation Comments Sodium Lvl (test code = Sodium Lvl) 140 135-145 [place] 720782-05-22 07:20:00 Test Item Value Reference Range Interpretation Comments Potassium Lvl (test code = Potassium 3.8 3.5-5.1 Lvl) [place] 720782-05-22 07:20:00 Test Item Value Reference Range Interpretation Comments Chloride Lvl (test code = Chloride Lvl) 109 95-109 [place] 720782-05-22 07:20:00 Test Item Value Reference Range Interpretation Comments CO2 (test code = CO2) 26 24-32 [place] [address]-05-22 07:20:00 Test Item Value Reference Range Interpretation Comments Calcium Lvl (test code = Calcium Lvl) 8.7 8.5-10.5 [place] [address]-05-22 07:20:00 Test Item Value Reference Range Interpretation Comments AGAP (test code = AGAP) 8.8 10.0-20.0 [place] [address]-05-22 07:20:00 Test Item Value Reference Range Interpretation Comments eGFR (test code = eGFR) 76 [place] [address]-05-22 07:20:00 Test Item Value Reference Range Interpretation Comments Magnesium Lvl (test code = Magnesium 2.0 1.8-2.4 Lvl) [place] [address]-05-22 07:20:00 Test Item Value Reference Range Interpretation Comments Phosphorus (test code = Phosphorus) 3.6 2.5-4.5 [place] [address]-05-22 07:20:00 Test Item Value Reference Range Interpretation Comments Segs (test code = Segs) 48.6 45.0-75.0 [address]05-22 07:20:00 Test Item Value Reference Range Interpretation Comments Lymphocytes (test code = Lymphocytes) 34.9 20.0-40.0 [place] [address]-05-22 07:20:00 Test Item Value Reference Range Interpretation Comments Monocytes (test code = Monocytes) 12.6 2.0-12.0 [place] [address]-05-22 07:20:00 Test Item Value Reference Range Interpretation Comments Eosinophils (test code = 3.2 See_Comment [A utomated message] The Eosinophils) system which ge nerated this result tra nsmitted reference range : <=4.0. The reference r [place] was not used to int erpret this result as normal/abnormal . [address]05-22 07:20:00 Test Item Value Reference Range Interpretation Comments Basophils (test code = 0.7 See_Comment [Aut omated message] The Basophils) system which ge nerated this result tra nsmitted reference range : <=1.0. The reference r [place] was not used to int erpret this result as normal/abnormal . [facility] HospitalEpfpqudFNWYRGSGEK1876-54-92 07:20:00 Test Item Value Reference Range Interpretation Comments Neutrophils # (test code = Neutrophils 2.7 1.5-8.1 #) [facility] HospitalOsbyawlFKGHDNUFQG7441-86-97 07:20:00 Test Item Value Reference Range Interpretation Comments Lymphocytes # (test code = Lymphocytes 1.9 1.0-5.5 #) [facility] HospitalZdxylmoYUITIFXXML3828-49-96 07:20:00 Test Item Value Reference Range Interpretation Comments Monocytes # (test code 0.7 See_Comment [Aut omated message] The = Monocytes #) system which generated this result tra nsmitted reference range : <=0.8. The reference r [place] was not used to int erpret this result as normal/abnormal . [place] 037902-05-22 07:20:00 Test Item Value Reference Range Interpretation Comments Eosinophils # (test code 0.2 See_Comment [A utomated message] The = Eosinophils #) system whic h generated this result tra nsmitted reference range : <=0.5. The reference r [place] was not used to int erpret this result as normal/abnormal . [facility] HospitalMgdahjtWOHLXLWHXU3086-54-71 07:20:00 Test Item Value Reference Range Interpretation Comments WBC (test code = WBC) 5.5 3.7-10.4 [facility] HospitalPpadyigIKIZQMIDWK7077-63-22 07:20:00 Test Item Value Reference Range Interpretation Comments RBC (test code = RBC) 4.50 4.20-5.40 [facility] HospitalOvsrqcyTNWAJPTWYF3519-96-03 07:20:00 Test Item Value Reference Range Interpretation Comments Hgb (test code = Hgb) 12.4 12.0-16.0 [place] 037902-05-22 07:20:00 Test Item Value Reference Range Interpretation Comments Hct (test code = Hct) 37.1 36.0-48.0 [place] 037902-05-22 07:20:00 Test Item Value Reference Range Interpretation Comments MCV (test code = MCV) 82.5 80.0-98.0 [place] 037902-05-22 07:20:00 Test Item Value Reference Range Interpretation Comments MCH (test code = MCH) 27.6 pg 27.0-31.0 [place] [address]-05-22 07:20:00 Test Item Value Reference Range Interpretation Comments MCHC (test code = MCHC) 33.5 32.0-36.0 [place] [address]-05-22 07:20:00 Test Item Value Reference Range Interpretation Comments RDW (test code = RDW) 13.2 11.5-14.5 [place] [address]-05-22 07:20:00 Test Item Value Reference Range Interpretation Comments Platelet (test code = Platelet) 289 133-450 [place] 037902-05-22 07:20:00 Test Item Value Reference Range Interpretation Comments MPV (test code = MPV) 8.4 7.4-10.4 [facility]2022-05-22 07:20:00 Test Item Value Reference Range Interpretation Comments Ca Ion WB (test code = Ca Ion WB) 1.15 1.05-1.25 [place] 601442-05-22 07:20:00 Test Item Value Reference Range Interpretation Comments Ca Ion at pH 7.4 WB (test code = Ca Ion 1.13 1.05-1.25 at pH 7.4 WB) [place] 720782-05-21 06:38:00 Test Item Value Reference Range Interpretation Comments Glucose Lvl (test code = Glucose Lvl) 98 70-99 [place] 720782-05-21 06:38:00 Test Item Value Reference Range Interpretation Comments BUN (test code = BUN) 12 -22 [place] 720782-05-21 06:38:00 Test Item Value Reference Range Interpretation Comments Creatinine Lvl (test code = Creatinine 0.65 0.50-1.40 Lvl) [place] 720782-05-21 06:38:00 Test Item Value Reference Range Interpretation Comments Sodium Lvl (test code = Sodium Lvl) 139 135-145 [place] 720782-05-21 06:38:00 Test Item Value Reference Range Interpretation Comments Potassium Lvl (test code = Potassium 3.8 3.5-5.1 Lvl) [place] 720782-05-21 06:38:00 Test Item Value Reference Range Interpretation Comments Chloride Lvl (test code = Chloride Lvl) 108 95-109 [place] 720782-05-21 06:38:00 Test Item Value Reference Range Interpretation Comments CO2 (test code = CO2) 23 24-32 [place] [address]-05-21 06:38:00 Test Item Value Reference Range Interpretation Comments Calcium Lvl (test code = Calcium Lvl) 8.5 8.5-10.5 [place] 720782-05-21 06:38:00 Test Item Value Reference Range Interpretation Comments AGAP (test code = AGAP) 11.8 10.0-20.0 [place] [address]-05-21 06:38:00 Test Item Value Reference Range Interpretation Comments eGFR (test code = eGFR) 86 [place] 720782-05-21 06:38:00 Test Item Value Reference Range Interpretation Comments Magnesium Lvl (test code = Magnesium 1.9 1.8-2.4 Lvl) [place] 720782-05-21 06:38:00 Test Item Value Reference Range Interpretation Comments Phosphorus (test code = Phosphorus) 3.4 2.5-4.5 [place] [address]-05-21 06:38:00 Test Item Value Reference Range Interpretation Comments WBC (test code = WBC) 5.5 3.7-10.4 [place] [address]-05-21 06:38:00 Test Item Value Reference Range Interpretation Comments RBC (test code = RBC) 4.60 4.20-5.40 [place] [address]-05-21 06:38:00 Test Item Value Reference Range Interpretation Comments Hgb (test code = Hgb) 12.5 12.0-16.0 [place] [address]-05-21 06:38:00 Test Item Value Reference Range Interpretation Comments Hct (test code = Hct) 37.9 36.0-48.0 [place] [address]-05-21 06:38:00 Test Item Value Reference Range Interpretation Comments MCV (test code = MCV) 82.3 80.0-98.0 [place] [address]-05-21 06:38:00 Test Item Value Reference Range Interpretation Comments MCH (test code = MCH) 27.2 pg 27.0-31.0 [place] [address]-05-21 06:38:00 Test Item Value Reference Range Interpretation Comments MCHC (test code = MCHC) 33.1 32.0-36.0 [facility] HospitalOwsrqaiTMGOFQNNAZ1731-87-81 06:38:00 Test Item Value Reference Range Interpretation Comments RDW (test code = RDW) 13.1 11.5-14.5 [facility] HospitalYrwfuqpPNWGXDHJGR7657-92-14 06:38:00 Test Item Value Reference Range Interpretation Comments Platelet (test code = Platelet) 305 133-450 [facility] HospitalIelypffEDGIFPBHRR6430-81-42 06:38:00 Test Item Value Reference Range Interpretation Comments MPV (test code = MPV) 8.6 7.4-10.4 [facility] HospitalQmtmawlSYOBTXUZLS1548-12-02 06:38:00 Test Item Value Reference Range Interpretation Comments Segs (test code = Segs) 46.3 45.0-75.0 [facility] HospitalOxcksovJPYCAKHHVC6250-69-43 06:38:00 Test Item Value Reference Range Interpretation Comments Lymphocytes (test code = Lymphocytes) 37.7 20.0-40.0 [facility]YqhfjlkBTDSVOEWWU3983-12-46 06:38:00 Test Item Value Reference Range Interpretation Comments Monocytes (test code = Monocytes) 11.6 2.0-12.0 [facility] HospitalGeqrbpkNDIAULYVFA3646-23-09 06:38:00 Test Item Value Reference Range Interpretation Comments Eosinophils (test code = 3.5 See_Comment [A utomated message] The Eosinophils) system which ge nerated this result tra nsmitted reference range : <=4.0. The reference r dakota was not used to int erpret this result as normal/abnormal . [facility] HospitalJdqxoksRUCSWFADDL5747-25-75 06:38:00 Test Item Value Reference Range Interpretation Comments Basophils (test code = 0.9 See_Comment [Aut omated message] The Basophils) system which ge nerated this result tra nsmitted reference range : <=1.0. The reference r dak[place] was not used to int erpret this result as normal/abnormal . [facility] HospitalYwgwmriNCLRYYZILH4585-81-39 06:38:00 Test Item Value Reference Range Interpretation Comments Neutrophils # (test code = Neutrophils 2.6 1.5-8.1 #) [facility] HospitalCroltnxANEQFICDWK3314-69-93 06:38:00 Test Item Value Reference Range Interpretation Comments Lymphocytes # (test code = Lymphocytes 2.1 1.0-5.5 #) [place] 037902-05-21 06:38:00 Test Item Value Reference Range Interpretation Comments Monocytes # (test code 0.6 See_Comment [Aut omated message] The = Monocytes #) system which generated this result tra nsmitted reference range : <=0.8. The reference r dakota was not used to int erpret this result as normal/abnormal . [place] 037902-05-21 06:38:00 Test Item Value Reference Range Interpretation Comments Eosinophils # (test code 0.2 See_Comment [A utomated message] The = Eosinophils #) system whic h generated this result tra nsmitted reference range : <=0.5. The reference r dakota was not used to int erpret this result as normal/abnormal . [facility]2022-05-21 06:38:00 Test Item Value Reference Range Interpretation Comments Ca Ion WB (test code = Ca Ion WB) 1.09 1.05-1.25 [place] 601442-05-21 06:38:00 Test Item Value Reference Range Interpretation Comments Ca Ion at pH 7.4 WB (test code = Ca Ion 1.10 1.05-1.25 at pH 7.4 WB) [place] 720782-05-20 05:54:00 Test Item Value Reference Range Interpretation Comments Glucose Lvl (test code = Glucose Lvl) 88 70-99 [place] 720782-05-20 05:54:00 Test Item Value Reference Range Interpretation Comments BUN (test code = BUN) 14 7-22 [place] 720782-05-20 05:54:00 Test Item Value Reference Range Interpretation Comments Creatinine Lvl (test code = Creatinine 0.61 0.50-1.40 Lvl) [place] 720782-05-20 05:54:00 Test Item Value Reference Range Interpretation Comments Sodium Lvl (test code = Sodium Lvl) 140 135-145 [place] 720782-05-20 05:54:00 Test Item Value Reference Range Interpretation Comments Potassium Lvl (test code = Potassium 3.4 3.5-5.1 Lvl) [place] 720782-05-20 05:54:00 Test Item Value Reference Range Interpretation Comments Chloride Lvl (test code = Chloride Lvl) 110 95-109 [place] 720782-05-20 05:54:00 Test Item Value Reference Range Interpretation Comments CO2 (test code = CO2) 24 24-32 [place] 720782-05-20 05:54:00 Test Item Value Reference Range Interpretation Comments Calcium Lvl (test code = Calcium Lvl) 8.0 8.5-10.5 [place] 720782-05-20 05:54:00 Test Item Value Reference Range Interpretation Comments AGAP (test code = AGAP) 9.4 10.0-20.0 [place] 720782-05-20 05:54:00 Test Item Value Reference Range Interpretation Comments eGFR (test code = eGFR) 88 [place] 037902-05-20 05:54:00 Test Item Value Reference Range Interpretation Comments WBC (test code = WBC) 5.3 3.7-10.4 [place] 037902-05-20 05:54:00 Test Item Value Reference Range Interpretation Comments RBC (test code = RBC) 4.49 4.20-5.40 [place] 037902-05-20 05:54:00 Test Item Value Reference Range Interpretation Comments Hgb (test code = Hgb) 12.3 12.0-16.0 [place] 037902-05-20 05:54:00 Test Item Value Reference Range Interpretation Comments Hct (test code = Hct) 37.4 36.0-48.0 [place] 037902-05-20 05:54:00 Test Item Value Reference Range Interpretation Comments MCV (test code = MCV) 83.3 80.0-98.0 [place] 037902-05-20 05:54:00 Test Item Value Reference Range Interpretation Comments MCH (test code = MCH) 27.3 pg 27.0-31.0 [place] 037902-05-20 05:54:00 Test Item Value Reference Range Interpretation Comments MCHC (test code = MCHC) 32.7 32.0-36.0 [place] 037902-05-20 05:54:00 Test Item Value Reference Range Interpretation Comments RDW (test code = RDW) 13.6 11.5-14.5 [place] 037902-05-20 05:54:00 Test Item Value Reference Range Interpretation Comments Platelet (test code = Platelet) 297 133-450 [facility] HospitalXlqttxeRRFBZJEVDL1294-32-62 05:54:00 Test Item Value Reference Range Interpretation Comments MPV (test code = MPV) 8.8 7.4-10.4 [place] 037902-05-20 05:54:00 Test Item Value Reference Range Interpretation Comments Segs (test code = Segs) 51.7 45.0-75.0 [place] 037902-05-20 05:54:00 Test Item Value Reference Range Interpretation Comments Lymphocytes (test code = Lymphocytes) 30.0 20.0-40.0 [place] 037902-05-20 05:54:00 Test Item Value Reference Range Interpretation Comments Monocytes (test code = Monocytes) 15.6 2.0-12.0 [facility] HospitalCuagwtyCENBJKZUCW8719-47-58 05:54:00 Test Item Value Reference Range Interpretation Comments Eosinophils (test code = 1.7 See_Comment [A utomated message] The Eosinophils) system which ge nerated this result tra nsmitted reference range : <=4.0. The reference r dakota was not used to int erpret this result as normal/abnormal . [facility] HospitalYictfofUCJOFKONJC1720-18-31 05:54:00 Test Item Value Reference Range Interpretation Comments Basophils (test code = 1.0 See_Comment [Aut omated message] The Basophils) system which ge nerated this result tra nsmitted reference range : <=1.0. The reference r dakota was not used to int erpret this result as normal/abnormal . [facility] HospitalFapxlmzNOUMTYNTNJ4591-82-51 05:54:00 Test Item Value Reference Range Interpretation Comments Neutrophils # (test code = Neutrophils 2.7 1.5-8.1 #) [place] 037902-05-20 05:54:00 Test Item Value Reference Range Interpretation Comments Lymphocytes # (test code = Lymphocytes 1.6 1.0-5.5 #) [place] [address]-05-20 05:54:00 Test Item Value Reference Range Interpretation Comments Monocytes # (test code 0.8 See_Comment [Aut omated message] The = Monocytes #) system which generated this result tra nsmitted reference range : <=0.8. The reference r dakota was not used to int erpret this result as normal/abnormal . [facility] HospitalHptvoeuXYVOXQHFSS3443-30-72 05:54:00 Test Item Value Reference Range Interpretation Comments Eosinophils # (test code 0.1 See_Comment [A utomated message] The = Eosinophils #) system whic h generated this result tra nsmitted reference range : <=0.5. The reference r dakota was not used to int erpret this result as normal/abnormal . [facility]ZexgomrUIEAXWXAUD2036-92-[facility] 05:54:00 Test Item Value Reference Range Interpretation Comments Basophils # (test code 0.1 See_Comment [Aut omated message] The = Basophils #) system which generated this result tra nsmitted reference range : <=0.2. The reference r dakota was not used to int erpret this result as normal/abnormal . [facility] HospitalMansdoxGROWQSRDVD4391-06-72 05:54:00 Test Item Value Reference Range Interpretation Comments Treponemal Ab (test code Non-Reactive = Treponemal Ab) *NA*(01/08/22 12:54 AM) [facility] HospitalannCARDIAC [id number] 21:08:00 Test Item Value Reference Range Interpretation Comments HS Troponin I (test code = HS Troponin 4 I) [facility] [id number] 21:08:00 Test Item Value Reference Range Interpretation Comments U Amph Scr (test code Negative *NA*(01/07/22 = U Amph Scr) 4:08 PM) [facility]ann[facility] PLNKBR6905-11-55 21:08:00 Test Item Value Reference Range Interpretation Comments U Yaneth Scr (test code Negative *NA*(01/07/22 = U Yaneth Scr) 4:08 PM) [facility] [id number] 21:08:00 Test Item Value Reference Range Interpretation Comments U Benzodiaz Scr (test Negative *NA*(01/07/22 code = U Benzodiaz Scr) 4:08 PM) [facility] [id number] 21:08:00 Test Item Value Reference Range Interpretation Comments U Cocaine Scr (test Negative *NA*(01/07/22 code = U Cocaine Scr) 4:08 PM) [facility] [id number] 21:08:00 Test Item Value Reference Range Interpretation Comments U Cannab Scr (test Negative *NA*(01/07/22 code = U Cannab Scr) 4:08 PM) [facility] [id number] 21:08:00 Test Item Value Reference Range Interpretation Comments U Opiate Scr (test Negative *NA*(01/07/22 code = U Opiate Scr) 4:08 PM) [facility] [id number] 21:08:00 Test Item Value Reference Range Interpretation Comments U Phencyclidine Scr (test Negative code = U Phencyclidine *NA*(01/07/22 4:08 Scr) PM) [facility] [id number] 21:08:00 Test Item Value Reference Range Interpretation Comments UDS Note (test code = See Note (01/07/22 4:08 UDS Note) PM) [facility] AefeyikURZSVQ9343-14-70 21:08:00 Test Item Value Reference Range Interpretation Comments Trig (test code = Trig) 63 [facility] AwocnitYNTIYX3438-33-06 21:08:00 Test Item Value Reference Range Interpretation Comments Chol (test code = Chol) 175 [facility] ZojhsduPNJCXO9065-17-07 21:08:00 Test Item Value Reference Range Interpretation Comments HDL (test code = HDL) 59 [facility] PxvskpyQFLACM5870-38-54 21:08:00 Test Item Value Reference Range Interpretation Comments CHD Risk (test code = CHD Risk) 2.97 1 3.90-5.80 [facility] JqzgoxbIHOURE2445-83-33 21:08:00 Test Item Value Reference Range Interpretation Comments LDL (Calculated) (test code = LDL 103 (Calculated)) [facility] ZljugcqUQAIAF2063-18-08 21:08:00 Test Item Value Reference Range Interpretation Comments VLDL (test code = VLDL) 13 1 [facility] HospitalannSPECIAL JMXOHDTQM4429-15-63 21:08:00 Test Item Value Reference Range Interpretation Comments Hgb A1C (test code = Hgb A1C) 5.7 [facility] [id number] 21:08:00 Test Item Value Reference Range Interpretation Comments UA Comment 1 (test Suboptimal specimen code = UA Comment 1) received. Results may be inaccurate due to the age of the specimen. Interpret results with caution. [facility] [id number] 21:08:00 Test Item Value Reference Range Interpretation Comments UA Color (test code = Light Yellow UA Color) *NA*(01/07/22 4:08 PM) [facility] [id number] 21:08:00 Test Item Value Reference Range Interpretation Comments UA Turbidity (test code = Clear (01/07/22 4:08 UA Turbidity) PM) [facility] AND [id number] 21:08:00 Test Item Value Reference Range Interpretation Comments UA Spec Grav (test code = UA Spec 1.035 1 Grav) [facility] AND [id number] 21:08:00 Test Item Value Reference Range Interpretation Comments UA pH (test code = UA pH) 7.0 1 5.0-8.0 [facility] AND [id number] 21:08:00 Test Item Value Reference Range Interpretation Comments UA Protein (test code = UA Negative mg/dL Protein) [facility] AND [id number] 21:08:00 Test Item Value Reference Range Interpretation Comments UA Glucose (test code = UA Negative mg/dL Glucose) [facility] AND [id number] 21:08:00 Test Item Value Reference Range Interpretation Comments UA Ketones (test code = UA Ketones) 20 mg/dL [facility] AND [id number] 21:08:00 Test Item Value Reference Range Interpretation Comments UA Bili (test code = Negative *NA*(01/07/22 UA Bili) 4:08 PM) [facility] AND [id number] 21:08:00 Test Item Value Reference Range Interpretation Comments UA Blood (test code = Negative (01/07/22 4:08 UA Blood) PM) [facility] AND [id number] 21:08:00 Test Item Value Reference Range Interpretation Comments UA Urobilinogen (test code = UA no gt 0.1-1.0 Urobilinogen) [facility] AND [id number] 21:08:00 Test Item Value Reference Range Interpretation Comments UA Nitrite (test code Negative (01/07/22 4:08 = UA Nitrite) PM) [facility] AND [id number] 21:08:00 Test Item Value Reference Range Interpretation Comments UA Leuk Est (test Negative (01/07/22 4:08 code = UA Leuk Est) PM) [facility] AND [id number] 21:08:00 Test Item Value Reference Range Interpretation Comments UA WBC (test code = 1 See_Comment [Automa tanner message] The UA WBC) system which ge nerated this result transmit tanner reference range : <=5. The reference range was not used to interpr et this result as tyshawn l/abnormal. [facility] AND [id number] 21:08:00 Test Item Value Reference Range Interpretation Comments UA RBC (test code = 1 See_Comment [Automa atnner message] The UA RBC) system which ge nerated this result transmit tanner reference range : <=2. The reference range was not used to interpr et this result as tyshawn l/abnormal. [facility] AND [id number] 21:08:00 Test Item Value Reference Range Interpretation Comments UA Mucus (test code = UA Mucus) Few /LPF [facility] AND [id number] 21:08:00 Test Item Value Reference Range Interpretation Comments UA Sq Epi (test code = UA Sq Epi) None Seen [facility] [employer] [id number] 16:19:35 Test Item Value Reference Range Interpretation Comments HS Troponin I 0 to 1 Hour Delta (test 1 1 code = HS Troponin I 0 to 1 Hour Delta) [facility] eDabbaCARConnectedHealthAC [id number] 16:19:35 Test Item Value Reference Range Interpretation Comments HS Troponin I 1 Hr (test code = HS 4 Troponin I 1 Hr) [facility] [employer] [id number] 16:19:35 Test Item Value Reference Range Interpretation Comments Ammonia (test code = Ammonia) 13.0 [facility] [employer] [id number] 16:16:00 Test Item Value Reference Range Interpretation Comments Lactic Acid Lvl (test code = Lactic 1.0 0.5-2.2 Acid Lvl) [facility] TabljzcXMBNYSTCEJ0216-68-09 16:16:00 Test Item Value Reference Range Interpretation Comments Coronavirus (COVID-19) Detected DYLAN (test code = 4*ABN*(01/07/22 11:16 Coronavirus (COVID-19) AM) DYLAN) [employer] [id number] 15:27:00 Test Item Value Reference Range Interpretation Comments ABO/Rh (test code = ABO/Rh) O POS [facility] [employer] [id number] 15:27:00 Test Item Value Reference Range Interpretation Comments Antibody Scrn (test Negative (01/07/22 code = Antibody Scrn) 10:27 AM) [facility] HospitalbernardCARDIAC [id number] 15:23:11 Test Item Value Reference Range Interpretation Comments HS Troponin I Baseline (test code = HS 3 Troponin I Baseline) [facility] [id number] 15:23:11 Test Item Value Reference Range Interpretation Comments Total Protein (test code = Total 6.4 6.4-8.4 Protein) [facility] [id number] 15:23:11 Test Item Value Reference Range Interpretation Comments Albumin Lvl (test code = Albumin Lvl) 3.0 3.5-5.0 [facility] [id number] 15:23:11 Test Item Value Reference Range Interpretation Comments ALANINE AMINOTRANSFERASE 28 See_Comment [A utomated message] (test code = ALANINE The sys tem which AMINOTRANSFERASE) generated this result transmitted ref erence range: <=65. Th e reference range was not used to int erpret this result as normal/abnormal . [facility] HospitalInnolume [id number] 15:23:11 Test Item Value Reference Range Interpretation Comments AST (test code = AST) 21 See_Comment [Auto mated message] The system which ge nerated this result transmit tanner reference range : <=37. The reference range was not used to interpr et this result as tyshawn l/abnormal. [facility] HospitalInnolume [id number] 15:23:11 Test Item Value Reference Range Interpretation Comments Alk Phos (test code = Alk Phos) 53 39-136 [facility] HospitalInnol[facility] [id number] 15:23:11 Test Item Value Reference Range Interpretation Comments Bili Total (test code = Bili Total) 0.4 0.2-1.3 [facility] HospitalInnolume [id number] 15:23:11 Test Item Value Reference Range Interpretation Comments Bili Direct (test code 0.1 See_Comment [Aut omated message] The = Bili Direct) system which generated this result tra nsmitted reference range : <=0.3. The reference r dakota was not used to int erpret this result as tyshawn l/abnormal. [facility] [employer] [id number] 15:23:11 Test Item Value Reference Range Interpretation Comments Bili Indirect (test 0.3 See_Comment [Automa tanner message] The code = Bili Indirect) system which generated this result tra nsmitted reference range : <=1.0. The reference r dakota was not used to int erpret this result as normal/abnormal . [facility] HospitalInnol[facility] [id number] 15:23:11 Test Item Value Reference Range Interpretation Comments Globulin (test code = Globulin) 3.4 2.7-4.2 [facility] [id number] 15:23:11 Test Item Value Reference Range Interpretation Comments A/G Ratio (test code = A/G Ratio) 0.9 1 0.7-1.6 [place] 720782-05-19 15:23:11 Test Item Value Reference Range Interpretation Comments Lipase Lvl (test code = Lipase Lvl) 213 73-393 [facility] HospitalInnol[facility] [id number] 15:23:11 Test Item Value Reference Range Interpretation Comments Magnesium Lvl (test code = Magnesium 2.0 1.8-2.4 Lvl) [facility]2022-05-19 15:23:11 Test Item Value Reference Range Interpretation Comments Phosphorus (test code = Phosphorus) 3.3 2.5-4.5 [facility] [id number] 14:53:00 Test Item Value Reference Range Interpretation Comments Total CK (test code = Total CK) 58 12-191 [facility] HealthcareGxzbzfoSQUXRNMNNT2292-29-43 14:53:00 Test Item Value Reference Range Interpretation Comments PT (test code = PT) 13.2 s 12.0-14.7 [facility] HospitalRfuwnsiFJCYWPYYLW2688-97-40 14:53:00 Test Item Value Reference Range Interpretation Comments INR (test code = INR) 1.01 1 0.85-1.17 [facility] HealthcareGkmkhieIXHAVBKHVH7419-72-25 14:53:00 Test Item Value Reference Range Interpretation Comments PTT (test code = PTT) 27.2 s 22.9-35.8 [facility] HospitalKogtnoeBOZWHSSAKU5689-04-19 14:53:00 Test Item Value Reference Range Interpretation Comments Basophils # (test code 0.1 See_Comment [Aut omated message] The = Basophils #) system which generated this result tra nsmitted reference range : <=0.2. The reference r dakota was not used to int erpret this result as normal/abnormal . [facility]NzqzvbqVZYDXVILBLNH2299-99-82 13:18:00 Test Item Value Reference Range Interpretation Comments AGAP (test code = AGAP) 10.8 10.0-20.0 [facility] HospitalJivtcdrYVNLOFJMEKBB4747-74-25 13:18:00 Test Item Value Reference Range Interpretation Comments eGFR (test code = eGFR) 66 [facility] HospitalRvnnfqbVGHWMSQERTDV4774-66-61 13:18:00 Test Item Value Reference Range Interpretation Comments Glucose Lvl (test code = Glucose Lvl) 80 70-99 [facility] HospitalRkbmobqPIRHYCKAPTKU7526-62-83 13:18:00 Test Item Value Reference Range Interpretation Comments Creatinine Lvl (test code = Creatinine 0.9 0.5-1.4 Lvl) [facility] HospitalFgfghtzJXJEKTVMSCLN5105-23-13 13:18:00 Test Item Value Reference Range Interpretation Comments BUN (test code = BUN) 10 7-22 [facility] HospitalApcmeysAGBNVOABKEUI4785-38-79 13:18:00 Test Item Value Reference Range Interpretation Comments Chloride Lvl (test code = Chloride Lvl) 105 95-109 [facility] HospitalCulgsgoPPOWINNAVOHB8698-46-50 13:18:00 Test Item Value Reference Range Interpretation Comments Potassium Lvl (test code = Potassium 3.8 3.5-5.1 Lvl) [facility] HospitalUhidwpqCPGZODWSHOXB4774-76-79 13:18:00 Test Item Value Reference Range Interpretation Comments Sodium Lvl (test code = Sodium Lvl) 139 135-145 [facility] HospitalIlmkmbdBCVKJKYGLEBG7212-05-52 13:18:00 Test Item Value Reference Range Interpretation Comments Calcium Lvl (test code = Calcium Lvl) 8.5 8.5-10.5 [facility] HospitalUrmxabcFVUJRBYLMUYI1307-98-26 13:18:00 Test Item Value Reference Range Interpretation Comments CO2 (test code = CO2) 27 24-32 [facility] HospitalIuxezlaPPTILGTLOY4841-39-80 13:18:00 Test Item Value Reference Range Interpretation Comments Hct (test code = Hct) 39.3 36.0-48.0 [facility] HospitalDlovxtaLZVNGTXLCV9363-34-06 13:18:00 Test Item Value Reference Range Interpretation Comments Hgb (test code = Hgb) 12.8 12.0-16.0 [facility] HospitalXcoxfpgKOBTZJLJEP8740-30-50 17:37:00 Test Item Value Reference Range Interpretation Comments PT (test code = PT) 13.9 s 12.0-14.7 [facility] HospitalUhmqcymOQZTNDYGAX3886-27-45 17:37:00 Test Item Value Reference Range Interpretation Comments INR (test code = INR) 1.07 0.85-1.17 [facility] HospitalRkwwudnERENFKJCSC3180-61-40 17:37:00 Test Item Value Reference Range Interpretation Comments PTT (test code = PTT) 35.3 s 22.9-35.8 [facility] HospitalFhvcwsaZGJHHESOVBRQ8027-51-46 17:23:00 Test Item Value Reference Range Interpretation Comments Glucose Lvl (test code = Glucose Lvl) 86 70-99 [facility] HospitalXwkudiyIMBWSSYZVAKY0364-41-31 17:23:00 Test Item Value Reference Range Interpretation Comments AST (test code = AST) 13 See_Comment [Auto mated message] The system which ge nerated this result transmit tanner reference range : <=37. The reference range was not used to interpr et this result as tyshawn l/abnormal. [facility] HospitalQetqbghOMUSXGCUAKHZ8558-67-52 17:23:00 Test Item Value Reference Range Interpretation Comments ALT (test code = ALT) 26 See_Comment [Auto mated message] The system which ge nerated this result transmit tanner reference range : <=65. The reference range was not used to interpr et this result as tyshawn l/abnormal. [facility] HospitalZywehwfKYDXDOUHFHYE3504-68-26 17:23:00 Test Item Value Reference Range Interpretation Comments Chloride Lvl (test code = Chloride Lvl) 105 95-109 [facility] HospitalAqlnlgiLXALFLEGOCWQ5445-78-19 17:23:00 Test Item Value Reference Range Interpretation Comments CO2 (test code = CO2) 29 24-32 [facility] HospitalIuuzqryIUACLGSXIOKZ1370-83-94 17:23:00 Test Item Value Reference Range Interpretation Comments Total Protein (test code = Total 7.0 6.4-8.4 Protein) [facility] HospitalFiaaxieOBBRMDULXCYN7624-54-70 17:23:00 Test Item Value Reference Range Interpretation Comments Calcium Lvl (test code = Calcium Lvl) 9.0 8.5-10.5 [facility] HospitalWtdclavZSRXMYSYAKBD2621-36-05 17:23:00 Test Item Value Reference Range Interpretation Comments BUN (test code = BUN) 15 7-22 [facility] HospitalFsnthcpHCZXTKIMMDPZ2912-03-25 17:23:00 Test Item Value Reference Range Interpretation Comments Creatinine Lvl (test code = Creatinine 0.8 0.5-1.4 Lvl) [facility] HospitalRgpyethVCZVLKWYZSAT5465-46-04 17:23:00 Test Item Value Reference Range Interpretation Comments Albumin Lvl (test code = Albumin Lvl) 3.8 3.5-5.0 [facility] HospitalMminfxuULJAZXHWNH6834-12-04 17:23:00 Test Item Value Reference Range Interpretation Comments Lymphocytes # (test code = Lymphocytes 2.3 1.0-5.5 #) [facility] HospitalPanuovpDYWIHYPNRY4376-76-47 17:23:00 Test Item Value Reference Range Interpretation Comments Segs-Bands # (test code = Segs-Bands #) 5.0 1.5-8.1 [facility] HospitalXrltbqiCCLEESRYXA9028-21-85 17:23:00 Test Item Value Reference Range Interpretation Comments Basophils # (test code 0.1 See_Comment [Aut omated message] The = Basophils #) system which generated this result tra nsmitted reference range : <=0.2. The reference r dakota was not used to int erpret this result as normal/abnormal . [id number] 17:23:00 Test Item Value Reference Range Interpretation Comments Monocytes # (test code 0.6 See_Comment [Aut omated message] The = Monocytes #) system which generated this result tra nsmitted reference range : <=0.8. The reference r dak[place] was not used to int erpret this result as normal/abnormal . [facility] Hospit[id number] 17:23:00 Test Item Value Reference Range Interpretation Comments Eosinophils # (test code 0.2 See_Comment [A utomated message] The = Eosinophils #) system whic h generated this result tra nsmitted reference range : <=0.5. The reference r [place] was not used to int erpret this result as normal/abnormal . [facility] Hospit[id number] 17:23:00 Test Item Value Reference Range Interpretation Comments Monocytes (test code = Monocytes) 7.2 2.0-12.0 [facility] HospitalYkcnaeeVLBERQCDVD8713-06-74 17:23:00 Test Item Value Reference Range Interpretation Comments Lymphocytes (test code = Lymphocytes) 28.5 20.0-40.0 [facility] HospitalBstfkxaSZNIQMZALG8607-36-08 17:23:00 Test Item Value Reference Range Interpretation Comments Basophils (test code = 0.6 See_Comment [Aut omated message] The Basophils) system which ge nerated this result tra nsmitted reference range : <=1.0. The reference r [place] was not used to int erpret this result as normal/abnormal . [facility] HospitalSehdxhtGJPGMVUEAH2071-76-30 17:23:00 Test Item Value Reference Range Interpretation Comments Eosinophils (test code = 2.3 See_Comment [A utomated message] The Eosinophils) system which ge nerated this result tra nsmitted reference range : <=4.0. The reference r [place] was not used to int erpret this result as normal/abnormal . [facility] HospitalNshoxbfOLYNALPQTT0495-26-92 17:23:00 Test Item Value Reference Range Interpretation Comments Segs (test code = Segs) 61.4 45.0-75.0 [facility] HospitalYcddbesXLHJJYPESA8501-99-45 17:23:00 Test Item Value Reference Range Interpretation Comments WBC (test code = WBC) 8.2 3.7-10.4 [facility] HospitalNaigpxbFDXJHSCYCV4089-58-10 17:23:00 Test Item Value Reference Range Interpretation Comments Platelet (test code = Platelet) 309 133-450 [facility] HospitalWnriufmVNMBHBPPLC5201-66-56 17:23:00 Test Item Value Reference Range Interpretation Comments Hgb (test code = Hgb) 13.4 12.0-16.0 [facility] HospitalCoadyglAOYUSKGLUM1547-57-06 17:23:00 Test Item Value Reference Range Interpretation Comments RBC (test code = RBC) 4.88 4.20-5.40 [facility] HospitalNozoumjVTBVWFJCRS6028-48-79 17:23:00 Test Item Value Reference Range Interpretation Comments MCH (test code = MCH) 27.5 pg 27.0-31.0 [facility] HospitalNyqxbbdEVZINTNDHL9272-68-68 17:23:00 Test Item Value Reference Range Interpretation Comments MCHC (test code = MCHC) 32.9 32.0-36.0 [facility] HospitalDryouryNHRQKNPTLL4206-93-86 17:23:00 Test Item Value Reference Range Interpretation Comments RDW (test code = RDW) 13.1 11.5-14.5 [facility] HospitalPaadfcbBNAPXJDAEN0717-67-48 17:23:00 Test Item Value Reference Range Interpretation Comments MPV (test code = MPV) 9.6 7.4-10.4 [facility]VyshgwmAFDUSFDGBB4111-64-88 17:23:00 Test Item Value Reference Range Interpretation Comments Hct (test code = Hct) 40.7 36.0-48.0 [facility]nlLBTRIWYZYB7617-42-21 17:23:00 Test Item Value Reference Range Interpretation Comments MCV (test code = MCV) 83.4 80.0-98.0 [facility] HospitalWkyqhgrXNDYLMLXOX8136-10-54 17:23:00 Test Item Value Reference Range Interpretation Comments Hep C Ab (test code = Negative *NA*(08/27/14 Hep C Ab) 11:23 AM) [facility] HospitalFdesdbvIGNGHYGYJY1770-86-18 17:23:00 Test Item Value Reference Range Interpretation Comments HIV 1/2 Ab (test code Negative *NA*(08/27/14 = HIV 1/2 Ab) 11:23 AM) [facility] HospitalBACTERIAL - [id number] 17:23:00 Test Item Value Reference Range Interpretation Comments MRSA by PCR (test Negative 7(08/27/14 11:23 code = MRSA by PCR) AM) [facility] HospitalYpywuufRAXONUVQRPBH0236-56-23 17:23:00 Test Item Value Reference Range Interpretation Comments AGAP (test code = AGAP) 11.1 10.0-20.0 [facility]JtndcszEPQWRYCDLTSG5877-50-34 17:23:00 Test Item Value Reference Range Interpretation Comments B/C Ratio (test code = B/C Ratio) 19 6-25 [facility] AllianceQkwrhndXZLPRGINGVPY5222-79-47 17:23:00 Test Item Value Reference Range Interpretation Comments Globulin (test code = Globulin) 3.2 2.0-4.0 [facility] HospitalDnedbumXXTQEGADTPIB4004-55-12 17:23:00 Test Item Value Reference Range Interpretation Comments A/G Ratio (test code = A/G Ratio) 1.2 0.7-1.6 [facility] AllianceYzughfuYIRLNFLNWGNR8983-11-64 17:23:00 Test Item Value Reference Range Interpretation Comments eGFR (test code = eGFR) 76 [facility]WdxdxfcSYSONCCHCWZV2528-49-85 17:23:00 Test Item Value Reference Range Interpretation Comments Bili Total (test code = Bili Total) 0.4 0.2-1.3 [facility]TsxozhtZBMTCBFTVBZX8846-84-20 17:23:00 Test Item Value Reference Range Interpretation Comments Alk Phos (test code = Alk Phos) 79 39-136 [facility] HospitalMydvspiQBZXJFLESNFB4220-85-21 17:23:00 Test Item Value Reference Range Interpretation Comments Potassium Lvl (test code = Potassium 4.1 3.5-5.1 Lvl) [facility] HospitalZotdnbdGPAVDPWAXPRI7649-75-62 17:23:00 Test Item Value Reference Range Interpretation Comments Sodium Lvl (test code = Sodium Lvl) 141 135-145 [facility] AND [id number] 06:57:13 Test Item Value Reference Range Interpretation Comments UA Urobilinogen (test code = UA <=1.0 mg/dL 0.1-1.0 Urobilinogen) [facility] AND [id number] 06:57:13 Test Item Value Reference Range Interpretation Comments Micro? (test code = Performed *NA*(03/09/14 Micro?) 1:57 AM) [facility] AND [id number] 06:57:13 Test Item Value Reference Range Interpretation Comments UA Blood (test code = Negative (03/09/14 1:57 UA Blood) AM) [facility] AND [id number] 06:57:13 Test Item Value Reference Range Interpretation Comments UA Bili (test code = Negative *NA*(03/09/14 UA Bili) 1:57 AM) [facility] AND [id number] 06:57:13 Test Item Value Reference Range Interpretation Comments UA Ketones (test code = UA Negative mg/dL Ketones) [facility] AND [id number] 06:57:13 Test Item Value Reference Range Interpretation Comments UA Glucose (test code = UA Negative mg/dL Glucose) [facility] AND [id number] 06:57:13 Test Item Value Reference Range Interpretation Comments UA Protein (test code = UA Negative mg/dL Protein) [facility] AND [id number] 06:57:13 Test Item Value Reference Range Interpretation Comments UA WBC (test code = 3 See_Comment [Automa tanner message] The UA WBC) system which ge nerated this result transmit tanner reference range : <=5. The reference range was not used to interpr et this result as tyshawn l/abnormal. [facility] AND [id number] 06:57:13 Test Item Value Reference Range Interpretation Comments UA Sq Epi (test code = UA Sq Epi) Few /LPF [facility] AND [id number] 06:57:13 Test Item Value Reference Range Interpretation Comments UA Leuk Est (test code Trace *ABN*(03/09/14 = UA Leuk Est) 1:57 AM) [facility] AND [id number] 06:57:13 Test Item Value Reference Range Interpretation Comments UA Nitrite (test code Negative (03/09/14 1:57 = UA Nitrite) AM) [facility] AND [id number] 06:57:13 Test Item Value Reference Range Interpretation Comments UA pH (test code = UA pH) 6.5 5.0-8.0 [facility] AND [id number] 06:57:13 Test Item Value Reference Range Interpretation Comments UA Spec Grav (test code = UA Spec Grav) 1.003 [facility] AND [id number] 06:57:13 Test Item Value Reference Range Interpretation Comments UA Turbidity (test code = Clear (03/09/14 1:57 UA Turbidity) AM) [facility] AND [id number] 06:57:13 Test Item Value Reference Range Interpretation Comments UA Color (test code = Colorless *NA*(03/09/14 UA Color) 1:57 AM) [facility] HospitalLwlxvyxFLGLWOXAXS1798-04-73 06:30:00 Test Item Value Reference Range Interpretation Comments Hgb (test code = Hgb) 12.8 12.0-16.0 [facility] HospitalBbnvssmXXULAJEQLQ7874-97-54 06:30:00 Test Item Value Reference Range Interpretation Comments Hct (test code = Hct) 38.1 36.0-48.0 [facility] HospitalNlqpoykOYGJNJITEM0153-67-13 06:30:00 Test Item Value Reference Range Interpretation Comments MCH (test code = MCH) 28.0 pg 27.0-31.0 [facility] HospitalPavbiahOKXCUFQLGM0448-17-87 06:30:00 Test Item Value Reference Range Interpretation Comments MCHC (test code = MCHC) 33.7 32.0-36.0 [facility] HospitalTheahkvNTQNSKDPFB4534-56-76 06:30:00 Test Item Value Reference Range Interpretation Comments Platelet (test code = Platelet) 238 133-450 [facility] HospitalXergameHEAFBWOIOK0211-58-78 06:30:00 Test Item Value Reference Range Interpretation Comments RDW (test code = RDW) 12.6 11.5-14.5 [facility] HospitalAvmydueDYYILHJKGF7499-02-63 06:30:00 Test Item Value Reference Range Interpretation Comments MCV (test code = MCV) 83.2 81.0-99.0 [facility] HospitalCmcwpylPJFCIZEEWT9203-13-37 06:30:00 Test Item Value Reference Range Interpretation Comments MPV (test code = MPV) 9.0 7.4-10.4 [facility] HospitalDnlwtgnQLFJVPUONN4654-94-08 06:30:00 Test Item Value Reference Range Interpretation Comments WBC (test code = WBC) 7.2 3.7-10.4 [facility] HospitalFxpgomdYMDHQYOSHN5388-22-34 06:30:00 Test Item Value Reference Range Interpretation Comments RBC (test code = RBC) 4.58 4.20-5.40 [facility] HospitalKwbcivqXBATNBKFNO7844-17-39 06:30:00 Test Item Value Reference Range Interpretation Comments Lymphocytes # (test code = Lymphocytes 2.3 1.0-5.5 #) [facility] HospitalEijboeuETKSIQZFTH4417-53-76 06:30:00 Test Item Value Reference Range Interpretation Comments Segs-Bands # (test code = Segs-Bands #) 3.8 1.5-8.1 [facility] HospitalReotfinADQALATOHF4928-09-96 06:30:00 Test Item Value Reference Range Interpretation Comments Monocytes # (test code 0.7 See_Comment [Aut omated message] The = Monocytes #) system which generated this result tra nsmitted reference range : <=0.8. The reference r dakota was not used to int erpret this result as normal/abnormal . [facility] HospitalUvkjjbzVJMSGAWCCC3492-10-99 06:30:00 Test Item Value Reference Range Interpretation Comments Basophils (test code = 1.0 See_Comment [Aut omated message] The Basophils) system which ge nerated this result tra nsmitted reference range : <=1.0. The reference r dakota was not used to int erpret this result as normal/abnormal . [facility] HospitalMxpvantENXMCUZEQU1253-69-12 06:30:00 Test Item Value Reference Range Interpretation Comments Eosinophils # (test code 0.3 See_Comment [A utomated message] The = Eosinophils #) system whic h generated this result tra nsmitted reference range : <=0.5. The reference r dakota was not used to int erpret this result as normal/abnormal . [facility] HospitalAwojkixEJFMNTXAIZ4171-59-44 06:30:00 Test Item Value Reference Range Interpretation Comments Basophils # (test code 0.1 See_Comment [Aut omated message] The = Basophils #) system which generated this result tra nsmitted reference range : <=0.2. The reference r dakota was not used to int erpret this result as normal/abnormal . [facility] HospitalGffslkvNZRYRIKAMA5875-57-97 06:30:00 Test Item Value Reference Range Interpretation Comments Monocytes (test code = Monocytes) 10.1 2.0-12.0 [facility] HospitalFnpgeqgPIHJEJQRRA3337-56-91 06:30:00 Test Item Value Reference Range Interpretation Comments Eosinophils (test code = 3.7 See_Comment [A utomated message] The Eosinophils) system which ge nerated this result tra nsmitted reference range : <=4.0. The reference r dakota was not used to int erpret this result as normal/abnormal . [facility] HospitalRsxwwlqMDWBJRSUEI5025-18-83 06:30:00 Test Item Value Reference Range Interpretation Comments Segs (test code = Segs) 52.9 45.0-75.0 [facility] HospitalVijsfddBHZXNECVDN4925-66-67 06:30:00 Test Item Value Reference Range Interpretation Comments Lymphocytes (test code = Lymphocytes) 32.3 20.0-40.0 [facility]2014-07-19 06:14:00 Test Item Value Reference Range Interpretation Comments Magnesium Lvl (test code = Magnesium 1.7 1.8-2.4 Lvl) [facility]2014-07-19 06:14:00 Test Item Value Reference Range Interpretation Comments Phosphorus (test code = Phosphorus) 3.1 2.5-4.5 [facility]2014-07-19 06:14:00 Test Item Value Reference Range Interpretation Comments eGFR (test code = eGFR) 76 [facility]2014-07-19 06:14:00 Test Item Value Reference Range Interpretation Comments Glucose Lvl (test code = Glucose Lvl) 105 70-99 [facility]2014-07-19 06:14:00 Test Item Value Reference Range Interpretation Comments Sodium Lvl (test code = Sodium Lvl) 145 135-145 [facility]2014-07-19 06:14:00 Test Item Value Reference Range Interpretation Comments Creatinine Lvl (test code = Creatinine 0.8 0.5-1.4 Lvl) [facility]2014-07-19 06:14:00 Test Item Value Reference Range Interpretation Comments BUN (test code = BUN) 19 7-22 [facility]2014-07-19 06:14:00 Test Item Value Reference Range Interpretation Comments Chloride Lvl (test code = Chloride Lvl) 114 95-109 [facility]2014-07-19 06:14:00 Test Item Value Reference Range Interpretation Comments Potassium Lvl (test code = Potassium 4.4 3.5-5.1 Lvl) [facility]2014-07-19 06:14:00 Test Item Value Reference Range Interpretation Comments Calcium Lvl (test code = Calcium Lvl) 8.2 8.5-10.5 [facility]2014-07-19 06:14:00 Test Item Value Reference Range Interpretation Comments CO2 (test code = CO2) 19 24-32 [facility]2014-07-19 06:14:00 Test Item Value Reference Range Interpretation Comments AGAP (test code = AGAP) 16.4 10.0-20.0 [facility]ButqduoRODXDRHXHH9723-36-98 06:14:00 Test Item Value Reference Range Interpretation Comments [place]-Hep C Ab (test Negative *NA*(03/09/14 code = [place]-Hep C 1:14 AM) Ab) [facility]2014-07-18 07:00:00 Test Item Value Reference Range Interpretation Comments B/C Ratio (test code = B/C Ratio) 26 6-25 [facility]2014-07-18 07:00:00 Test Item Value Reference Range Interpretation Comments eGFR (test code = eGFR) 89 [facility]2014-07-18 07:00:00 Test Item Value Reference Range Interpretation Comments Creatinine Lvl (test code = Creatinine 0.7 0.5-1.4 Lvl) [facility]2014-07-18 07:00:00 Test Item Value Reference Range Interpretation Comments Sodium Lvl (test code = Sodium Lvl) 142 135-145 [facility]2014-07-18 07:00:00 Test Item Value Reference Range Interpretation Comments Glucose Lvl (test code = Glucose Lvl) 98 70-99 [facility]2014-07-18 07:00:00 Test Item Value Reference Range Interpretation Comments Potassium Lvl (test code = Potassium 4.2 3.5-5.1 Lvl) [facility]2014-07-18 07:00:00 Test Item Value Reference Range Interpretation Comments AGAP (test code = AGAP) 14.2 10.0-20.0 [facility]2014-07-18 07:00:00 Test Item Value Reference Range Interpretation Comments CO2 (test code = CO2) 26 24-32 [facility]2014-07-18 07:00:00 Test Item Value Reference Range Interpretation Comments Calcium Lvl (test code = Calcium Lvl) 8.4 8.5-10.5 [facility]2014-07-18 07:00:00 Test Item Value Reference Range Interpretation Comments Chloride Lvl (test code = Chloride Lvl) 106 95-109 [facility]2014-07-18 07:00:00 Test Item Value Reference Range Interpretation Comments Bili Total (test code = Bili Total) 0.3 0.2-1.3 [facility]2014-07-18 07:00:00 Test Item Value Reference Range Interpretation Comments A/G Ratio (test code = A/G Ratio) 1.0 0.7-1.6 [facility]2014-07-18 07:00:00 Test Item Value Reference Range Interpretation Comments Total Protein (test code = Total 6.3 6.4-8.4 Protein) [facility]2014-07-18 07:00:00 Test Item Value Reference Range Interpretation Comments Globulin (test code = Globulin) 3.2 2.0-4.0 [facility]2014-07-18 07:00:00 Test Item Value Reference Range Interpretation Comments Albumin Lvl (test code = Albumin Lvl) 3.1 3.5-5.0 [place] [id number] 07:00:00 Test Item Value Reference Range Interpretation Comments ALT (test code = ALT) 28 See_Comment [Auto mated message] The system which ge nerated this result transmit tanner reference range : <=65. The reference range was not used to interpr et this result as tyshawn l/abnormal. [facility]2014-07-18 07:00:00 Test Item Value Reference Range Interpretation Comments AST (test code = AST) 13 See_Comment [Auto mated message] The system which ge nerated this result transmit tanner reference range : <=37. The reference range was not used to interpr et this result as tyshawn l/abnormal. [place] [id number] 07:00:00 Test Item Value Reference Range Interpretation Comments Alk Phos (test code = Alk Phos) 70 39-136 [facility]2014-07-18 07:00:00 Test Item Value Reference Range Interpretation Comments BUN (test code = BUN) 18 7-22 [facility] HospitalBxjxmadATABHOWNQR7836-93-26 07:00:00 Test Item Value Reference Range Interpretation Comments Monocytes (test code = Monocytes) 11.0 2.0-12.0 [facility] HospitalNcksebhWBTZZUEQKM8325-70-86 07:00:00 Test Item Value Reference Range Interpretation Comments Eosinophils (test code = 4.2 See_Comment [A utomated message] The Eosinophils) system which ge nerated this result tra nsmitted reference range : <=4.0. The reference r dakota was not used to int erpret this result as normal/abnormal . [facility] HospitalJrpdpohYNVKQCEHOR7066-54-55 07:00:00 Test Item Value Reference Range Interpretation Comments Lymphocytes (test code = Lymphocytes) 25.8 20.0-40.0 [facility] HospitalLvahvqdMGUHEPHWFL4702-25-33 07:00:00 Test Item Value Reference Range Interpretation Comments Basophils (test code = 0.6 See_Comment [Aut omated message] The Basophils) system which ge nerated this result tra nsmitted reference range : <=1.0. The reference r dakota was not used to int erpret this result as normal/abnormal . [facility] HospitalOnurbwlUKJMDCWJFC7803-94-94 07:00:00 Test Item Value Reference Range Interpretation Comments Segs (test code = Segs) 58.4 45.0-75.0 [facility] HospitalMbyoasfXXTNPFDOUP4005-60-46 07:00:00 Test Item Value Reference Range Interpretation Comments Segs-Bands # (test code = Segs-Bands #) 4.8 1.5-8.1 [facility] HospitalIqlrgmxKYATFTEVEG2092-56-89 07:00:00 Test Item Value Reference Range Interpretation Comments Lymphocytes # (test code = Lymphocytes 2.1 1.0-5.5 #) [facility] HospitalZdwwfzcWCDREQJOFO5949-88-17 07:00:00 Test Item Value Reference Range Interpretation Comments Eosinophils # (test code 0.3 See_Comment [A utomated message] The = Eosinophils #) system whic h generated this result tra nsmitted reference range : <=0.5. The reference r dakota was not used to int erpret this result as normal/abnormal . [facility] HospitalIfpzpzdNJLVKFUBXN3296-49-29 07:00:00 Test Item Value Reference Range Interpretation Comments Monocytes # (test code 0.9 See_Comment [Aut omated message] The = Monocytes #) system which generated this result tra nsmitted reference range : <=0.8. The reference r dakota was not used to int erpret this result as normal/abnormal . [facility] HospitalLqrpdcaIOSDFLTGWE3464-50-77 07:00:00 Test Item Value Reference Range Interpretation Comments MPV (test code = MPV) 9.2 7.4-10.4 [facility] HospitalOdbylkxLQPHBDAEEX3869-90-95 07:00:00 Test Item Value Reference Range Interpretation Comments Hct (test code = Hct) 40.5 36.0-48.0 [facility] HospitalBxghonhYDKFOVYMMQ3750-57-67 07:00:00 Test Item Value Reference Range Interpretation Comments MCH (test code = MCH) 27.5 pg 27.0-31.0 [facility] HospitalYvahxulVOAGLITGQC8031-71-32 07:00:00 Test Item Value Reference Range Interpretation Comments MCHC (test code = MCHC) 32.9 32.0-36.0 [facility] HospitalFsxuwxvGGUIECPNNE7551-60-31 07:00:00 Test Item Value Reference Range Interpretation Comments Platelet (test code = Platelet) 239 133-450 [facility] HospitalRpbqfkuGGWTHRTTLU5155-32-27 07:00:00 Test Item Value Reference Range Interpretation Comments MCV (test code = MCV) 83.6 81.0-99.0 [facility] HospitalGmlludpVUNVRCQAKM7375-68-90 07:00:00 Test Item Value Reference Range Interpretation Comments RDW (test code = RDW) 12.8 11.5-14.5 [facility] HospitalWghthzlWDXCJWQOZS6205-74-06 07:00:00 Test Item Value Reference Range Interpretation Comments WBC (test code = WBC) 8.3 3.7-10.4 [facility] HospitalUhfjfxhFVZEEEAOHG6585-45-99 07:00:00 Test Item Value Reference Range Interpretation Comments Hgb (test code = Hgb) 13.3 12.0-16.0 [facility] HospitalZgcwqimWMLSEMYPRT8893-35-95 07:00:00 Test Item Value Reference Range Interpretation Comments RBC (test code = RBC) 4.84 4.20-5.40 [facility] AND [id number] 05:29:26 Test Item Value Reference Range Interpretation Comments UA Trans Epi (test code = UA Trans Epi) 5 [facility] AND [id number] 05:29:26 Test Item Value Reference Range Interpretation Comments UA RBC (test code = 3 See_Comment [Automa tanner message] The UA RBC) system which ge nerated this result transmit tanner reference range : <=2. The reference range was not used to interpr et this result as tyshawn l/abnormal. [facility] AND [id number] 05:29:26 Test Item Value Reference Range Interpretation Comments UA WBC (test code = 45 See_Comment [Automa tanner message] The UA WBC) system which ge nerated this result transmit tanner reference range : <=5. The reference range was not used to interpr et this result as tyshawn l/abnormal. [facility] AND [id number] 05:29:26 Test Item Value Reference Range Interpretation Comments UA Urobilinogen (test code = UA <=1.0 mg/dL 0.1-1.0 Urobilinogen) [facility] AND [id number] 05:29:26 Test Item Value Reference Range Interpretation Comments UA Color (test code = Yellow *NA*(03/08/14 UA Color) 12:29 AM) [facility] AND [id number] 05:29:26 Test Item Value Reference Range Interpretation Comments UA Ketones (test code = UA Negative mg/dL Ketones) [facility] AND [id number] 05:29:26 Test Item Value Reference Range Interpretation Comments UA Bili (test code = Negative *NA*(03/08/14 UA Bili) 12:29 AM) [facility] AND [id number] 05:29:26 Test Item Value Reference Range Interpretation Comments UA Blood (test code = Negative (03/08/14 12:29 UA Blood) AM) [facility] AND [id number] 05:29:26 Test Item Value Reference Range Interpretation Comments UA Protein (test code = UA Negative mg/dL Protein) [facility] AND [id number] 05:29:26 Test Item Value Reference Range Interpretation Comments UA Glucose (test code = UA Negative mg/dL Glucose) [facility] AND [id number] 05:29:26 Test Item Value Reference Range Interpretation Comments UA pH (test code = UA pH) 7.0 5.0-8.0 [facility] AND [id number] 05:29:26 Test Item Value Reference Range Interpretation Comments UA Spec Grav (test code = UA Spec Grav) 1.008 [facility] AND [id number] 05:29:26 Test Item Value Reference Range Interpretation Comments UA Turbidity (test code = Clear (03/08/14 12:29 UA Turbidity) AM) [facility] AND [id number] 05:29:26 Test Item Value Reference Range Interpretation Comments UA Sq Epi (test code = UA Sq Epi) Many /LPF [facility] AND [id number] 05:29:26 Test Item Value Reference Range Interpretation Comments UA Bacteria (test code = UA Occasional /HPF Bacteria) [facility] AND [id number] 05:29:26 Test Item Value Reference Range Interpretation Comments UA Nitrite (test code Negative (03/08/14 12:29 = UA Nitrite) AM) [facility] AND [id number] 05:29:26 Test Item Value Reference Range Interpretation Comments UA Leuk Est (test code Large *ABN*(03/08/14 = UA Leuk Est) 12:29 AM) [facility] [id number] 23:09:00 Test Item Value Reference Range Interpretation Comments Vitamin B12 Lvl (test code = Vitamin [phone] B12 Lvl) [facility] [id number] 23:09:00 Test Item Value Reference Range Interpretation Comments RPR (test code = RPR) Non Reactive (03/07/14 6:09 PM) [facility] [id number] 23:09:00 Test Item Value Reference Range Interpretation Comments HIV 1/2 Ab (test code Negative *NA*(03/07/14 = HIV 1/2 Ab) 6:09 PM) [facility] [id number] 21:30:59 Test Item Value Reference Range Interpretation Comments Ammonia (test code = Ammonia) 14.0 [facility] [id number] 21:02:17 Test Item Value Reference Range Interpretation Comments Phenytoin Total (test code = Phenytoin 6.2 10.0-20.0 Total) [facility] [id number] 20:00:58 Test Item Value Reference Range Interpretation Comments UDS Note (test code = See Note 8*NA*(03/07/14 UDS Note) 3:00 PM) [facility] [id number] 20:00:58 Test Item Value Reference Range Interpretation Comments U Amph Scr (test code Negative *NA*(03/07/14 = U Amph Scr) 3:00 PM) [facility] [id number] 20:00:58 Test Item Value Reference Range Interpretation Comments U Yaneth Scr (test code Negative *NA*(03/07/14 = U Yaneth Scr) 3:00 PM) [facility] [id number] 20:00:58 Test Item Value Reference Range Interpretation Comments U Cannab Scr (test Negative *NA*(03/07/14 code = U Cannab Scr) 3:00 PM) [facility] [id number] 20:00:58 Test Item Value Reference Range Interpretation Comments U Cocaine Scr (test Negative *NA*(03/07/14 code = U Cocaine Scr) 3:00 PM) [facility] [id number] 20:00:58 Test Item Value Reference Range Interpretation Comments U Phencyc Scr (test Negative *NA*(03/07/14 code = U Phencyc Scr) 3:00 PM) [facility] [id number] 20:00:58 Test Item Value Reference Range Interpretation Comments U Opiate Scr (test Negative *NA*(03/07/14 code = U Opiate Scr) 3:00 PM) [facility] [id number] 20:00:58 Test Item Value Reference Range Interpretation Comments U Benzodia Scr (test Negative *NA*(03/07/14 code = U Benzodia Scr) 3:00 PM) [facility] [id number] 20:00:58 Test Item Value Reference Range Interpretation Comments UA Urobilinogen (test code = UA 0.2 0.1-1.0 Urobilinogen) [facility] [id number] 20:00:58 Test Item Value Reference Range Interpretation Comments UA Nitrite (test code Negative (03/07/14 3:00 = UA Nitrite) PM) [facility] [id number] 20:00:58 Test Item Value Reference Range Interpretation Comments UA Leuk Est (test code Small *ABN*(03/07/14 = UA Leuk Est) 3:00 PM) [facility] [id number] 20:00:58 Test Item Value Reference Range Interpretation Comments UA Blood (test code = Negative (03/07/14 3:00 UA Blood) PM) [facility] [id number] 20:00:58 Test Item Value Reference Range Interpretation Comments UA Protein (test code Negative (03/07/14 3:00 = UA Protein) PM) [facility] [id number] 20:00:58 Test Item Value Reference Range Interpretation Comments UA pH (test code = UA pH) 7.5 1 5.0-8.0 [facility] [id number] 20:00:58 Test Item Value Reference Range Interpretation Comments UA Bili (test code = Negative *NA*(03/07/14 UA Bili) 3:00 PM) [facility] [id number] 20:00:58 Test Item Value Reference Range Interpretation Comments UA Ketones (test code Negative *NA*(03/07/14 = UA Ketones) 3:00 PM) [facility] [id number] 20:00:58 Test Item Value Reference Range Interpretation Comments UA Glucose (test code Negative (03/07/14 3:00 = UA Glucose) PM) [facility] [id number] 20:00:58 Test Item Value Reference Range Interpretation Comments UA Spec Grav (test code = UA Spec 1.010 1 Grav) [facility] [id number] 20:00:58 Test Item Value Reference Range Interpretation Comments UA Color (test code = Yellow *NA*(03/07/14 UA Color) 3:00 PM) [facility] [id number] 20:00:58 Test Item Value Reference Range Interpretation Comments UA Turbidity (test code = Clear (03/07/14 3:00 UA Turbidity) PM) [facility] [id number] 20:00:58 Test Item Value Reference Range Interpretation Comments UA Bacteria (test code = UA Occasional /HPF Bacteria) [facility] [id number] 20:00:58 Test Item Value Reference Range Interpretation Comments UA Sq Epi (test code = UA Sq Occasional /LPF Epi) [facility] [id number] 20:00:58 Test Item Value Reference Range Interpretation Comments Micro? (test code = Performed (03/07/14 3:00 Micro?) PM) [facility] [id number] 20:00:58 Test Item Value Reference Range Interpretation Comments UA RBC (test None Seen See_Comment [Automated mes francesca] code = UA RBC) (03/07/14 3:00 The system [facility] PM) generated this result transmitted ref erence range: <=2. The reference range was not used to int erpret this result as normal/abnormal . [facility] [id number] 20:00:58 Test Item Value Reference Range Interpretation Comments UA WBC (test code = 5-8 See_Comment [Automa tanner message] The UA WBC) system which ge nerated this result transmit tanner reference range : <=5. The reference range was not used to interpr et this result as tyshawn l/abnormal. [facility] [id number] 19:41:00 Test Item Value Reference Range Interpretation Comments Total CK (test code = Total CK) 52 12-191 [facility] [id number] 19:41:00 Test Item Value Reference Range Interpretation Comments Troponin-I (test code no gt See_Comment [Auto mated message] The = Troponin-I) system which g enerated this result transmit tanner reference range : <=0.40. The reference r dakota was not used to interpr et this result as tysahwn l/abnormal. [facility]2014-07-17 19:41:00 Test Item Value Reference Range Interpretation Comments B/C Ratio (test code = B/C Ratio) 24 6-25 [facility]2014-07-17 19:41:00 Test Item Value Reference Range Interpretation Comments AGAP (test code = AGAP) 15.5 10.0-20.0 [facility]2014-07-17 19:41:00 Test Item Value Reference Range Interpretation Comments Globulin (test code = Globulin) 3.6 2.0-4.0 [facility]2014-07-17 19:41:00 Test Item Value Reference Range Interpretation Comments A/G Ratio (test code = A/G Ratio) 1.0 0.7-1.6 [facility]2014-07-17 19:41:00 Test Item Value Reference Range Interpretation Comments eGFR (test code = eGFR) 89 [facility]2014-07-17 19:41:00 Test Item Value Reference Range Interpretation Comments Calcium Lvl (test code = Calcium Lvl) 9.5 8.5-10.5 [facility]2014-07-17 19:41:00 Test Item Value Reference Range Interpretation Comments Chloride Lvl (test code = Chloride Lvl) 106 95-109 [facility]2014-07-17 19:41:00 Test Item Value Reference Range Interpretation Comments Creatinine Lvl (test code = Creatinine 0.7 0.5-1.4 Lvl) [facility]2014-07-17 19:41:00 Test Item Value Reference Range Interpretation Comments Sodium Lvl (test code = Sodium Lvl) 142 135-145 [facility]2014-07-17 19:41:00 Test Item Value Reference Range Interpretation Comments Potassium Lvl (test code = Potassium 4.5 3.5-5.1 Lvl) [facility]2014-07-17 19:41:00 Test Item Value Reference Range Interpretation Comments BUN (test code = BUN) 17 7- [place] [id number] 19:41:00 Test Item Value Reference Range Interpretation Comments CO2 (test code = CO2) 25 24-32 [facility]2014-07-17 19:41:00 Test Item Value Reference Range Interpretation Comments Glucose Lvl (test code = Glucose Lvl) 87 70-99 [facility]2014-07-17 19:41:00 Test Item Value Reference Range Interpretation Comments AST (test code = AST) 15 See_Comment [Auto mated message] The system which ge nerated this result transmit tanner reference range : <=37. The reference range was not used to interpr et this result as tyshawn l/abnormal. [facility]2014-07-17 19:41:00 Test Item Value Reference Range Interpretation Comments Bili Total (test code = Bili Total) 0.3 0.2-1.3 [facility]2014-07-17 19:41:00 Test Item Value Reference Range Interpretation Comments ALT (test code = ALT) 22 See_Comment [Auto mated message] The system which ge nerated this result transmit tanner reference range : <=65. The reference range was not used to interpr et this result as tyshawn l/abnormal. [facility]2014-07-17 19:41:00 Test Item Value Reference Range Interpretation Comments Alk Phos (test code = Alk Phos) 68 39-136 [facility]2014-07-17 19:41:00 Test Item Value Reference Range Interpretation Comments Albumin Lvl (test code = Albumin Lvl) 3.5 3.5-5.0 [facility]2014-07-17 19:41:00 Test Item Value Reference Range Interpretation Comments Total Protein (test code = Total 7.1 6.4-8.4 Protein) [facility]2014-07-17 19:41:00 Test Item Value Reference Range Interpretation Comments Phosphorus (test code = Phosphorus) 3.4 2.5-4.5 [facility]2014-07-17 19:41:00 Test Item Value Reference Range Interpretation Comments Magnesium Lvl (test code = Magnesium 2.0 1.8-2.4 Lvl) [id number] 19:41:00 Test Item Value Reference Range Interpretation Comments Platelet (test code = Platelet) 272 133-450 [id number] 19:41:00 Test Item Value Reference Range Interpretation Comments RDW (test code = RDW) 12.0 11.5-14.5 [facility] H[id number] 19:41:00 Test Item Value Reference Range Interpretation Comments MPV (test code = MPV) 9.6 7.4-10.4 [facility] Hospit[id number] 19:41:00 Test Item Value Reference Range Interpretation Comments RBC (test code = RBC) 5.25 4.20-5.40 [facility] Hos[id number] 19:41:00 Test Item Value Reference Range Interpretation Comments WBC (test code = WBC) 8.6 3.7-10.4 [facility] HospitalParfmzqXTBJHUCTOD6703-07-76 19:41:00 Test Item Value Reference Range Interpretation Comments MCHC (test code = MCHC) 33.0 32.0-36.0 [facility] H[id number] 19:41:00 Test Item Value Reference Range Interpretation Comments Hgb (test code = Hgb) 14.3 12.0-16.0 [facility] Hospit[id number] 19:41:00 Test Item Value Reference Range Interpretation Comments MCH (test code = MCH) 27.2 pg 27.0-31.0 [facility] H[id number] 19:41:00 Test Item Value Reference Range Interpretation Comments Hct (test code = Hct) 43.3 36.0-48.0 [facility] Hospit[id number] 19:41:00 Test Item Value Reference Range Interpretation Comments MCV (test code = MCV) 82.4 81.0-99.0 [facility] HospitalRaqaxoxZJTSRXOKOZ3215-56-69 19:41:00 Test Item Value Reference Range Interpretation Comments Lymphocytes (test code = Lymphocytes) 25.0 20.0-40.0 [facility] H[id number] 19:41:00 Test Item Value Reference Range Interpretation Comments Segs (test code = Segs) 63.4 45.0-75.0 [facility] Hos[id number] 19:41:00 Test Item Value Reference Range Interpretation Comments Monocytes (test code = Monocytes) 8.2 2.0-12.0 [place] [id number] 19:41:00 Test Item Value Reference Range Interpretation Comments Lymphocytes # (test code = Lymphocytes 2.2 1.0-5.5 #) [facility] H[id number] 19:41:00 Test Item Value Reference Range Interpretation Comments Monocytes # (test code 0.7 See_Comment [Aut omated message] The = Monocytes #) system which generated this result tra nsmitted reference range : <=0.8. The reference r dakota was not used to int erpret this result as normal/abnormal . [facility] Hospit[id number] 19:41:00 Test Item Value Reference Range Interpretation Comments Basophils (test code = 0.3 See_Comment [Aut omated message] The Basophils) system which ge nerated this result tra nsmitted reference range : <=1.0. The reference r dak[place] was not used to int erpret this result as normal/abnormal . [facility] Ho[id number] 19:41:00 Test Item Value Reference Range Interpretation Comments Eosinophils (test code = 3.1 See_Comment [A utomated message] The Eosinophils) system which ge nerated this result tra nsmitted reference range : <=4.0. The reference r dak[place] was not used to int erpret this result as normal/abnormal . [facility] Hospit[id number] 19:41:00 Test Item Value Reference Range Interpretation Comments Segs-Bands # (test code = Segs-Bands #) 5.4 1.5-8.1 [facility] H[id number] 19:41:00 Test Item Value Reference Range Interpretation Comments Basophils # (test code 0.0 See_Comment [Aut omated message] The = Basophils #) system which generated this result tra nsmitted reference range : <=0.2. The reference r dakota was not used to int erpret this result as normal/abnormal . [facility] HospitalXvyvztuJLFZZJCGNQ9998-59-69 19:41:00 Test Item Value Reference Range Interpretation Comments Eosinophils # (test code 0.3 See_Comment [A utomated message] The = Eosinophils #) system whic h generated this result tra nsmitted reference range : <=0.5. The reference r dakota was not used to int erpret this result as normal/abnormal . [facility]2014-07-17 19:41:00 Test Item Value Reference Range Interpretation Comments TSH (test code = TSH) 0.100 0.360-3.740 [facility] [id number] 19:41:00 Test Item Value Reference Range Interpretation Comments T4 Free (test code = T4 Free) 1.67 0.76-1.46 [facility]
[2022-10-22] MEDS ORDERED: ONDANSETRON 4 MG/2 ML VIAL ONE (12:24)
[2022-10-22 13:01] LABS: Absolute Lymphocytes (CBC) 1.2 K/uL (0.7-4.9); Hematocrit 41.1 % (36.0-45.0); MCV 83.4 fL (80-100); MPV 9.1 fL (7.6-11.3); RBC Red Blood Cell Count 4.93 M/uL (3.86-4.86)
[2022-10-22 13:12] LABS: Urine Blood Trace-intact (Negative); Urine Glucose Negative (Negative); Urine Protein 3+ (Negative); Urine Specific Gravity >=1.030 (1.005-1.030); Urine pH 5.5 (5.0-7.0)
[2022-10-22 13:14] LABS: Albumin 4.3 g/dL (3.4-5.0); Bilirubin Total 1.5 mg/dL (0.2-1.0); Potassium 3.5 mmol/L (3.5-5.1); Protein, Total 7.9 g/dL (6.4-8.2)
[2022-10-22 13:26] LABS: Urine Bacteria 20-50 /HPF (<20); Urine RBC 21-50 /HPF (None Seen)
[2022-10-22 13:27] LABS: Urine Mucus Slight /HPF (None Seen); Urine WBC Clump Few /HPF (None Seen)
--- NOTE | 2022-10-22 13:59 | RAD REPORT ---
EXAM DESCRIPTION: CT - Abdomen Pelvis Wo Contrast - 10/22/2022 1:34 pm CLINICAL HISTORY: Abdominal pain /vomiting COMPARISON: None TECHNIQUE: Computed axial tomography of the abdomen and pelvis was obtained. IV and oral contrast we re not requested. All CT scans are performed using dose optimization technique as appropriate and may include automated exposure control or mA/KV adjustment according to patient size. FINDINGS: The evaluation of solid organs, vessels and bowel is limited secondary to the lack of con trast administration. The liver, spleen, pancreas, adrenals and left kidney appear grossly normal. 5 millimeter calculus le ft kidney. Hydronephrosis. Cholelithiasis. Gallbladder wall thickening is seen. Moderate dilatation of jejunum and part of ileum. Distal ileum is decompressed. No free air. Neurostimulator device IMPRESSION: Ileal obstruction Cholelithiasis
--- NOTE | 2022-10-22 14:05 | EDPHYS ---
Physician Documentation [facility] Name: Alysa George Age: 76 yrs Sex: Female : 1945 Arrival Date: 10/22/2022 Time: 11:37 Bed 20 Private MD: Abigail Peña ED Physician Bryn Rice HPI: 10/22 12:26 This 76 yrs old Female presents to ER via Wheelchair with complaints of ms3 Nausea/Vomiting, Urinary Problem. 12:26 76-year-old female with past medical history of CVA, dementia, Parkinson's, ms3 hypothyroidism presents for vomiting that began on Tuesday. Patient's family also notes patient has not urinated since that time. Patient denies dysuria. Patient's daughter states the symptoms are similar to when patient has had UTIs in the past.. Historical: - Allergies: 11:53 Codeine; ld1 11:53 Compazine; ld1 11:53 Phenergan; ld1 - Home Meds: 11:53 levothyroxine 125 mcg/mL soln 1 mL once daily [Active]; aspirin 81 mg Oral cap 1 cap ld1 once daily [Active]; atorvastatin 80 mg oral tab 1 tab once daily [Active]; lisinopril 20 mg Oral tab 1 tab once daily [Active]; rivastigmine tartrate 6 mg oral cap 1 cap 2 times per day [Active]; carbidopa-levodopa 25-100 mg Oral TbER 1 tab 4 times per day [Active]; pramipexole 0.125 mg oral tab 1 tab 3 times per day [Active]; quetiapine 25 mg oral tab 1 tab 2 times per day [Active]; - PMHx: 11:53 Cerebrovascular accident; Dementia; Parkinson's disease; Hypothyroidism; Hypertensive ld1 disorder; Hypercholesterolemia; - PSHx: 11:53 Total abdominal hysterectomy; Appendectomy; Tonsillectomy; ld1 - Immunization history:: Adult Immunizations up to date, Client reports receiving the 2nd dose of the Covid vaccine. - Social history:: Smoking status: Patient denies any tobacco usage or history of. Patient/guardian denies using alcohol. ROS: 12:26 Constitutional: Negative for fever, and chills. Neck: Negative for injury, pain, and ms3 swelling, Cardiovascular: Negative for chest pain, and palpitations. Respiratory: Negative for shortness of breath, cough, wheezing, and pleuritic chest pain. 12:26 All other systems are negative. Exam: 12:26 Constitutional: This is a well developed, well nourished patient who is awake, alert, ms3 and in no acute distress. Head/Face: Normocephalic, atraumatic. Neck: Trachea midline, no cervical lymphadenopathy. Supple, full range of motion without nuchal rigidity, or vertebral point tenderness. No Meningismus. Chest/axilla: Normal chest wall appearance and motion. Nontender with no deformity. Cardiovascular: Regular rate and rhythm with a normal S1 and S2. No gallops, murmurs, or rubs. Normal PMI, no JVD. No pulse deficits. Respiratory: Lungs have equal breath sounds bilaterally, clear to auscultation and percussion. No rales, rhonchi or wheezes noted. No increased work of breathing, no retractions or nasal flaring. Abdomen/GI: Soft, non-tender, with normal bowel sounds. No distension or tympany. No guarding or rebound. No evidence of tenderness throughout. Skin: Warm, dry with normal turgor. Normal color with no rashes, no lesions, and no evidence of cellulitis. MS/ Extremity: Pulses equal, no cyanosis. Neurovascular intact. Full, normal range of motion. Vital Signs: 11:53 BP 114 / 79; Pulse 91; Resp 18; Temp 97.7(O); Pulse Ox 100% on R/A; Weight 50.8 kg; ld1 Height 5 ft. 6 in. (167.64 cm); Pain 0/10; 11:53 Body Mass Index 18.08 (50.80 kg, 167.64 cm) ld1 MDM: 12:05 Patient medically screened. ms3 13:55 Differential diagnosis: Nonspecific abd pain, UTI vs Bowel obstruction. Data reviewed: ms3 vital signs, nurses notes, lab test result(s), radiologic studies, and as a result, I will admit patient. Consideration of Admission/Observation Patient was admitted/placed on observation. Management of patient was discussed with the following: Hospitalist: Dr Cortez. I considered the following discharge prescriptions or medication management in the emergency department Medications were administered in the Emergency Department. See MAR. Independent interpretation of the following test(s) in the Emergency Department CT Scan: My interpretation is CT abdomen/Pelvis without contrast images reviewed by me shows multiple loops of dilated bowel.. 10/22 11:58 Order name: CBC with Diff ms3 10/22 11:58 Order name: CMP ms3 10/22 11:58 Order name: Lipase ms3 10/22 11:58 Order name: Urine Microscopic Only ms3 10/22 11:58 Order name: CT Abd/Pelvis - IV Contrast Only ms3 10/22 11:58 Order name: IV Saline Lock; Complete Time: 12:49 ms3 10/22 11:58 Order name: Labs collected and sent; Complete Time: 12:49 ms3 10/22 11:58 Order name: Urine Dipstick-Ancillary (obtain specimen); Complete Time: 13:07 ms3 10/22 13:05 Order name: CBC with Automated Diff; Complete Time: 13:48 EDMS 10/22 13:12 Order name: Urine Dipstick-Ancillary; Complete Time: 13:48 EDMS 10/22 13:14 Order name: Comprehensive Metabolic Panel; Complete Time: 13:48 EDMS 10/22 13:14 Order name: Lipase; Complete Time: 13:48 EDMS 10/22 13:27 Order name: Urine Microscopic Only; Complete Time: 13:48 EDMS 10/22 13:59 Order name: CT; Complete Time: 14:03 EDMS 10/22 15:32 Order name: SARS RAPID eb 10/22 16:31 Order name: SARS-COV-2 Antigen Rapid; Complete Time: 18:08 EDMS Administered Medications: 12:49 Drug: Zofran (Ondansetron) 4 mg Route: IVP; Site: left antecubital; ko1 15:14 Drug: Rocephin (cefTRIAXone) 1 grams Route: IV; Rate: calculated rate; Site: left ko1 antecubital; Disposition Summary: 10/22/22 14:05 Hospitalization Ordered Hospitalization Status: Inpatient Admission ms3 Provider: Rafat Cortez ms3 Location: Telemetry/MedSurg (Inpatient) ms3 Condition: Stable ms3 Problem: new ms3 Symptoms: are unchanged ms3 Bed/Room Type: Standard ms3 Room Assignment: 431(10/22/22 16:45) ja Diagnosis - Ileal obstruction ms3 - UTI/ Urinary tract infection, site not specified ms3 - Acute Kidney Injury ms3 Forms: - Medication Reconciliation Form ms3 - SBAR form ms3 Signatures: Dispatcher [employer] EDKuldeep Leon RN RN ja1 Bryn Rice DO DO ms3 Linsey Hutchinson RN RN ld1 Waleska Eden RN RN ko1 Corrections: (The following items were deleted from the chart) 16:45 14:05 ms3 ja1
--- NOTE | 2022-10-22 14:05 | ER ---
Nurse's Notes [facility] Name: Alysa George Age: 76 yrs Sex: Female : 1945 Arrival Date: 10/22/2022 Time: 11:37 Bed 20 Private MD: Abigail Peña Diagnosis: Ileal obstruction;UTI/ Urinary tract infection, site not specified;Acute Kidney Injury Presentation: 10/22 11:53 Chief complaint: Patient states: N/V/ trouble urinating since Tuesday. Unable to ld1 tolerate food or fluids. Coronavirus screen: At this time, the client does not indicate any symptoms associated with coronavirus-19. Ebola Screen: No symptoms or risks identified at this time. Initial Sepsis Screen: Does the patient meet any 2 criteria? No. Patient's initial sepsis screen is negative. Does the patient have a suspected source of infection? No. Patient's initial sepsis screen is negative. Risk Assessment: Do you want to hurt yourself or someone else? Patient reports no desire to harm self or others. Onset of symptoms was October 22, 2022. 11:53 Method Of Arrival: Wheelchair ld1 11:53 Acuity: MARGARITA 3 ld1 Triage Assessment: 11:53 General: Appears in no apparent distress. comfortable, Behavior is calm, cooperative, ld1 appropriate for age. Pain: Unable to use pain scale. Does not appear to understand pain scale. EENT: No signs and/or symptoms were reported regarding the EENT system. Neuro: Level of Consciousness is awake, alert, confused, Oriented to person. Cardiovascular: Capillary refill < 3 seconds Patient's skin is warm and dry. Respiratory: Airway is patent Respiratory effort is even, unlabored. GI: Abdomen is flat, non-distended, Reports intolerance of fluids, intolerance of food, nausea, vomiting. : Reports inability to void. Derm: No signs and/or symptoms reported regarding the dermatologic system. Musculoskeletal: No signs and/or symptoms reported regarding the musculoskeletal system. Historical: - Allergies: 11:53 Codeine; ld1 11:53 Compazine; ld1 11:53 Phenergan; ld1 - Home Meds: 11:53 levothyroxine 125 mcg/mL soln 1 mL once daily [Active]; aspirin 81 mg Oral cap 1 cap ld1 once daily [Active]; atorvastatin 80 mg oral tab 1 tab once daily [Active]; lisinopril 20 mg Oral tab 1 tab once daily [Active]; rivastigmine tartrate 6 mg oral cap 1 cap 2 times per day [Active]; carbidopa-levodopa 25-100 mg Oral TbER 1 tab 4 times per day [Active]; pramipexole 0.125 mg oral tab 1 tab 3 times per day [Active]; quetiapine 25 mg oral tab 1 tab 2 times per day [Active]; - PMHx: 11:53 Cerebrovascular accident; Dementia; Parkinson's disease; Hypothyroidism; Hypertensive ld1 disorder; Hypercholesterolemia; - PSHx: 11:53 Total abdominal hysterectomy; Appendectomy; Tonsillectomy; ld1 - Immunization history:: Adult Immunizations up to date, Client reports receiving the 2nd dose of the Covid vaccine. - Social history:: Smoking status: Patient denies any tobacco usage or history of. Patient/guardian denies using alcohol. Screenin:30 [facility] ED Fall Risk Assessment (Adult) History of falling in the last 3 months, ko1 including since admission No falls in past 3 months (0 pts) Confusion or Disorientation Yes (5 pts) Intoxicated or Sedated No (0 pts) Impaired Gait Yes (1 pt) Mobility Assist Device Used Yes (1 pt) Altered Elimination Yes (1 pt) Score/Fall Risk Level 3 or more points = High Risk Oriented to surroundings, Maintained a safe environment, Educated pt \T\ family on fall prevention, incl call for assistance when getting out of bed, Assessed \T\ reinforced patient's understanding of fall precautions, Provided non-skid footwear, Hourly rounding (assess needs \T\ fall precautionary measures) done, Used ambulatory aids as needed (educated on \T\ assisted with), Used gait belt as appropriate Implemented a Fall Risk Plan of Care, Apply high fall risk patient identification: yellow non skid footwear/ fall signage, Offered frequent toileting (1:1 observation), Remained with patient while ambulating, Utilized family, sitter, or virtual pierogi maker as indicated. Abuse screen: Denies threats or abuse. Denies injuries from another. Nutritional screening: No deficits noted. Tuberculosis screening: No symptoms or risk factors identified. Assessment: 12:30 General: Appears in no apparent distress. ill, slender, Behavior is calm, cooperative, ko1 appropriate for age. Pain: Denies pain. Neuro: Chiu Agitation-Sedation Scale (RASS): 0 - Alert and Calm. Cardiovascular: No deficits noted. Respiratory: No deficits noted. GI: Parent/caregiver reports the patient having incontinence. GI: Bowel sounds present X 4 quads. : Parent/caregiver report the patient having incontinence. EENT: No deficits noted. Derm: No deficits noted. Musculoskeletal: Parent/caregiver report the patient having weakness in generalized. Vital Signs: 11:53 BP 114 / 79; Pulse 91; Resp 18; Temp 97.7(O); Pulse Ox 100% on R/A; Weight 50.8 kg; ld1 Height 5 ft. 6 in. (167.64 cm); Pain 0/10; 11:53 Body Mass Index 18.08 (50.80 kg, 167.64 cm) ld1 ED Course: 11:37 Patient arrived in ED. mr 11:38 Abigail Peña is Private Physician. mr 11:42 Bryn Rice DO is Attending Physician. ms3 11:53 Arm band placed on right wrist. ld1 11:57 Triage completed. ld1 12:05 Waleska Eden, RN is Primary Nurse. ko1 12:30 Patient has correct armband on for positive identification. Bed in low position. Call ko1 light in reach. Side rails up X2. Adult w/ patient. Client placed on continuous cardiac and pulse oximetry monitoring. NIBP monitoring applied. security monitor on. Door closed. Noise minimized. Warm blanket given. 12:49 CBC with Diff Sent. ko1 12:49 CMP Sent. ko1 12:49 Lipase Sent. ko1 12:49 Inserted saline lock: 20 gauge in left antecubital area, using aseptic technique. Blood ko1 collected. 13:06 Urine Microscopic Only Sent. ko1 14:04 Rafat Cortez MD is Hospitalizing Provider. ms3 17:00 No provider procedures requiring assistance completed. ko1 17:33 Patient admitted, IV remains in place. ko1 Administered Medications: 12:49 Drug: Zofran (Ondansetron) 4 mg Route: IVP; Site: left antecubital; ko1 15:14 Drug: Rocephin (cefTRIAXone) 1 grams Route: IV; Rate: calculated rate; Site: left ko1 antecubital; Medication: 17:00 VIS not applicable for this client. ko1 Outcome: 14:05 Decision to Hospitalize by Provider. ms3 17:32 Admitted to Med/surg accompanied by tech, room 431, with chart, Report called to koJessica kishor 17:32 Condition: improved 17:32 Instructed on the need for admit, Demonstrated understanding of 18:13 Patient left the ED. eb Signatures: Angelina Napoles mr NguyenArline Marcus, DO DO ms3 Linsey Hutchinson, RN RN ld1 Waleska Eden, TESS RN ko1
[2022-10-22] MEDS ORDERED: CEFTRIAXONE 1000 MG/VIAL ONE (15:12)
--- NOTE | 2022-10-22 15:41 | P.HP ---
Certification for Inpatient Patient admitted to: Inpatient With expected LOS: <2 Midnights Practitioner: I am a practitioner with admitting privileges, knowledge of patient current condition, hospital course, and medical plan of care. Services: Services provided to patient in accordance with Admission requirements found in Title 42 Section 412.3 of the Code of Federal Regulations Patient History Date of Service: 10/22/22 Reason for admission: UTI, Nausea/Vomitting History of Present Illness: 76yo F, PMH:CVA/TIA, Dementia, Parkinson's,hypothyroidism Presented to the ED due to worsening confusion, generalized weakness, associated with nausea and vomiting. First noticed some change in mentation several days ago. Daughter was trying to get patient seen at her PCP's office. Symptoms got worse 2 days ago with nausea/vomiting. Patient has not eaten much /able to keep anything down in last few days. Has been off her chronic meds for ~2 days. ~1 month ago, she was seen in ER in [place], diagnosed and discharged home with treatment for UTI. Upon initial evaluation in the ED, she was noted to have acute kidney failure and UTI. CT pelvis scan showed small intestines dilated, possible obstruction, ileus, cholelithiasis. At the time of my exam, Patients daughter states the symptoms are similar to when patient has had UTI's in the past. Patients mother states prior stroke symptoms seem to get exacerbated whenever she has UTIs. Patient was given rocephin in the ED. Allergies codeine Allergy (Unknown, Verified 10/22/22 16:07) unk prochlorperazine edisylate [From Compazine] Allergy (Unknown, Verified 10/22/22 16:07) unk prochlorperazine maleate [From Compazine] Allergy (Unknown, Verified 10/22/22 16:07) unk Home medications list reviewed: Yes Home Medications: Acetaminophen [Tylenol] 650 mg PO Q4HP PRN 03/05/14 Aspirin 81 mg PO DAILY 03/05/14 Biotin [Nail-Ex] 5,000 mcg PO DAILY 03/05/14 Cinnamon Bark/Chromium Picolin [Cinnamon Plus Chromium Capsule] 4,000 mg PO DAILY 03/05/14 Clopidogrel Bisulfate [Plavix*] 75 mg PO DAILY 03/05/14 Fish Oil/Borage/Flax/Om3,6,9 1 [[place] 3-6-9 Complex Softgel] 1 cap PO DAILY 03/05/14 Levothyroxine [Synthroid*] 150 mcg PO DAILY 03/05/14 Lovastatin [Mevacor*] 20 mg PO BEDTIME 03/05/14 Multivitamin [One-Daily Multi-Vitamin] 1 tab PO DAILY 03/05/14 Rivastigmine Patch [Exelon 4.6 mg Patch*] 4.6 mg TD DAILY 03/05/14 - Past Medical/Surgical History Diabetic: No -: CVA -: Lumbosacral spondylitis -: Hysterectomy -: Thyroidectomy -: Pins in toes -: UTI -: Cataract surgery (Both eyes) 07/22/21 -: Tonsilletomy -: Appendectomy -: Hysterectomy -: Thyroidectomy -: 2001 Stimulator implated in back for left leg - Family History Family History: Reviewed- Non-Contributory - Social History Smoking Status: Never smoker Alcohol use: No CD- Drugs: No Caffeine use: No Place of Residence: Home Review of Systems 10-point ROS is otherwise unremarkable Physical Examination - Physical Exam General: Alert, Oriented x1 (self only), Other (uncomfortable appearing) HEENT: EOMI, Sclerae nonicteric Respiratory: Clear to auscultation bilaterally, Normal air movement Cardiovascular: No edema, Regular rate/rhythm Capillary refill: <2 Seconds Gastrointestinal: Soft and benign, Non-distended, Tenderness (mild, epigastric./periumbilical) Musculoskeletal: No contractures, No tenderness Integumentary: No rashes, No significant lesion Neurological: Normal speech, Normal strength at 5/5 x4 extr (generalized weakness), Normal affect - Studies Laboratory Data (last 24 hrs) 10/22/22 12:45: Sodium 133 L, Potassium 3.5, BUN 65 H, Creatinine 4.04 H, Glucose 185 H, Total Bilirubin 1.5 H, AST 19, ALT 39, Alkaline Phosphatase 75, Lipase 23 10/22/22 12:45: WBC 10.60, Hgb 13.9, Hct 41.1, Plt Count 422 H Assessment and Plan - Advance Directives Does patient have a Living Will: No Does patient have a Durable POA for Healthcare: Yes - Code Status/Comfort Care Code Status Assessed: Yes Code Status: Full Code Physician Review Additional Text: Problem list UTI SBO MILLA, suspect prerenal Cholelithiasis Generalized weakness h/o CVA hypothyroidism HLD moderate-severe dementia UTI, 2nd episode this year, previously did not have frequent UTIs SIRS 1/: tachycardia Continue Rocephin Repeat labs in the a.m. tylenol for fever IVF SBO CT with likely ileal obstruction Dr. Gottlieb consulted by ED physician NPO NGT if vomiting more IVF KUB in AM Cholelithiasis no specific RUQ pain +n/v from SBO / UTI check U/S MILLA suspect prerenal, pt with minimal po intake + n/v over the last ~4 days IVF, recheck BMP in AM monitor UOP, gallegos nephrology consulted family deny any prior urologic issues / voiding difficulty, no urinary retention history Dementia baseline: AOx 1-2, needs help / lots of reminders where things are / where bathroom is physically can feed self, ambulate without assistance quite frequently per family VTE: heparin SQ Code: full Dispo: home, ~3 days Time Spent Managing Pts Care (In Minutes): 75
[2022-10-22] MEDS: NA CHLORIDE 0.9% 1,000 ML IV SCH ×2 (15:59→18:32)
[2022-10-22 16:30] LABS: SARS-CoV-2 Antigen Rapid Res Negative (Negative)
[2022-10-22] MEDS: HEPARIN 5000 UNIT/ML 1 ML VIAL SQ SCH (17:00)
[2022-10-22] MEDS ORDERED: HEPARIN 5000 UNIT/ML 1 ML VIAL ONE (17:56)
[2022-10-22 18:31] LABS: Thyroid Stimulating Hormone 0.955 uIU/mL (0.358-3.740)
[2022-10-22] MEDS: ONDANSETRON 4 MG/2 ML VIAL IV PRN (20:53)
[2022-10-23] MEDS: HEPARIN 5000 UNIT/ML 1 ML VIAL SQ SCH ×3 (01:00→16:38)
[2022-10-23] MEDS: ONDANSETRON 4 MG/2 ML VIAL IV PRN ×2 (05:17→16:18)
[2022-10-23] MEDS: NA CHLORIDE 0.9% 1,000 ML IV SCH ×2 (05:24→16:18)
--- NOTE | 2022-10-23 07:26 | P.PN ---
Date of Service: 10/23/22 Subjective: AOx1, refused labs this morning, refused gallegos last night eventually gallegos placed this morning, ~700ml dark urine Unable to pass flatus NPO; Thirsty ROS: 10 point ROS as noted above, otherwise negative Physical Exam: General: Alert, Oriented x1 (self only), Other (uncomfortable appearing) HEENT: EOMI, Sclerae nonicteric Respiratory: Clear to auscultation bilaterally, Normal air movement Cardiovascular: No edema, Regular rate/rhythm Gastrointestinal: Soft and benign, Non-distended, Tenderness (mild, epigastric./periumbilical) Musculoskeletal: No contractures, No tenderness Neurological: Normal speech, generalized weakness Problem List: UTI SBO MILLA, suspect prerenal Cholelithiasis Generalized weakness h/o CVA hypothyroidism HLD moderate-severe dementia UTI, 2nd episode this year, previously did not have frequent UTIs SIRS /: tachycardia Continue Rocephin attempt to redraw labs tylenol for fever IVF CT with likely ileal obstruction / ileus ileus likely secondary to infection NPO - oral swabs allowed NGT if vomiting more Bowel Rest IVF KUB in AM general surgery - Bull consulted no specific RUQ pain +n/v from SBO / UTI check U/S suspect prerenal, pt with minimal po intake + n/v over the last ~4 days IVF, recheck BMP in AM monitor UOP, gallegos nephrology consulted own quite frequently per family VTE: heparin SQ Code: full Dispo: home, ~3 days
--- NOTE | 2022-10-23 07:40 | RAD REPORT ---
EXAM DESCRIPTION: RAD - Abdomen 1 View (KUB) - 10/23/2022 6:55 am CLINICAL HISTORY: ileus COMPARISON: No comparisonsAbdomen Pelvis Wo Contrast dated 10/22/2022 FINDINGS: Dilated small bowel centrally measuring up to 4.2 cm is similar to 10/22/2022. No acute os seous abnormality.Visualized lungs are unremarkable.No abnormal calcifications. Spinal stimulator. IMPRESSION: Dilated small bowel similar to 10/22/2022.
[2022-10-23] MEDS: CEFTRIAXONE 1,000 MG in NA CHLORIDE 0.9% 50 ML IVPB SCH (08:06)
[2022-10-23 08:26] LABS: Specific Gravity 1.015 (1.005-1.030); Urine Bacteria <20 /HPF (<20); Urine Bilirubin NEGATIVE (Negative); Urine Blood Negative (Negative); Urine Clarity Clear (Clear); Urine Color Yellow (Yellow); Urine Glucose TRACE (Negative); Urine Mucus Slight /HPF (None Seen); Urine Protein 1+ (Negative); Urine RBC <5 /HPF (None Seen); Urine Urobilinogen Normal (Normal); Urine pH 5.5 (5.0-7.0)
[2022-10-23] MEDS ORDERED: ENOXAPARIN 40 MG/0.4 ML SQ SCH (09:00)
--- NOTE | 2022-10-23 10:20 | RAD REPORT ---
EXAM DESCRIPTION: US - Abdomen Exam Limited - 10/23/2022 10:02 am CLINICAL HISTORY: cholelithiasis, n/v, eval CBD/GB COMPARISON: <Comparisons> TECHNIQUE: Sonographic grayscale and color flow images of the right upper quadrant were obtained. FINDINGS: Exam is technically limited by over shadowing bowel gas. The gallbladder demonstrates small echogenic definite explicitly shadowing, gallstones layering depen dently along the body and neck of the gallbladder. No pericholecystic fluid or gallbladder wall thick ening. The common bile duct is normal measuring 3 mm. The liver demonstrates no findings of intrahepatic biliary dilatation. IMPRESSION: Cholelithiasis. No sonographic evidence of acute cholecystitis. No intra or extrahepatic biliary ductal dilation.
--- NOTE | 2022-10-23 11:47 | CON ---
Date of Consultation: 10/22/2022 Reason For Consultation: Possible bowel obstruction. History Of Present Illness: Patient is a 76-year-old female with multiple medical problems, who pres ented to the emergency room yesterday with abdominal pain and vomiting that started on Tuesday. Flako giron had not urinated since that time. She denied any dysuria, hematuria, constipation, diarrhea. There was some question of when her last bowel movement was, but according to the records, patient di d have a bowel movement yesterday. She is confused, so it is hard to know whether patient had been p assing gas or not. She has not vomited since being in the hospital. No sore throat, runny nose, cou gh, headaches, or dizziness. No chest pain. No fever or chills. Review of Systems: Otherwise, unremarkable. Past Medical History: CVA, dementia, Parkinson's, hypothyroidism, hypertensive disorder, hypercholes terolemia. Past Surgical History: Significant for total abdominal hysterectomy, thyroidectomy, foot surgery, ca taract surgery, appendectomy, and a nerve stimulator. Allergies: INCLUDE CODEINE AND COMPAZINE. Social History: Patient currently does not smoke or drink. Family History: Noncontributory. Physical Examination: Vital Signs: Stable. She is afebrile. General: She is awake, confused. Head and Neck: No masses. Chest: Clear. Heart: S1 and S2. Abdomen: Soft. Minimal distention. No tenderness. No rebound, rigidity, or guarding. Extremity: Adequately perfused. Nontender. Neuro: Nonfocal. Laboratory Data: White count yesterday was 10.6, there is no left shift. BUN and creatinine were si gnificantly elevated. UA was consistent with the UTI, and CT of the abdomen and pelvis revealed mode rate dilatation of the jejunum and part of the ileum, cholelithiasis, questionable gallbladder wall t hickening, is not clear based on the dictation of the radiologist. X-ray done today shows no signifi cant change in the caliber of the small bowel. Assessment: 76-year-old female with multiple medical problems with urinary tract infection and proba ble ileus associated with it. I doubt at this time that it is an obstruction. She does not need any acute surgical intervention. We will continue with hydration, IV antibiotics, serial abdominal exam s, follow with abdominal x-ray and let her have just a few sips of clear liquids for her dry mouth. Once the infection is under control, I believe, the ileus will improve. Plan of care discussed in de tail with Dr. Cortez. ROSALIA/YOLA Voice ID: [id number] Report ID: [id number]
[2022-10-23] MEDS ORDERED: INFLUENZA VACCINE (for 6+ mo) 0.5 ML DOSE IMVAC ONE (12:00)
--- NOTE | 2022-10-23 15:17 | P.CNS ---
Date of Consult: 10/23/22 Reason for Consult: MILLA Requesting Physician: Rafat Cortez Chief Complaint: UTI, Nausea/Vomitting History of Present Illness: 76yo F, PMH:CVA/TIA, Dementia, Parkinson's,hypothyroidism Presented to the ED due to worsening confusion, generalized weakness, associated with nausea and vomiting. First noticed some change in mentation several days ago. Daughter was trying to get patient seen at her PCP's office. Symptoms got worse 2 days ago with nausea/vomiting. Patient has not eaten much /able to keep anything down in last few days. Has been off her chronic meds for ~2 days. ~1 month ago, she was seen in ER in [place], diagnosed and discharged home with treatment for UTI. Upon initial evaluation in the ED, she was noted to have acute kidney failure and UTI. CT pelvis scan showed small intestines dilated, possible obstruction, ileus, cholelithiasis. At the time of my exam, Patients daughter states the symptoms are similar to when patient has had UTI's in the past. Patients mother states prior stroke symptoms seem to get exacerbated whenever she has UTIs. Patient was given rocephin in the ED. 12:26 This 76 yrs old Female presents to ER via Wheelchair with complaints of ms3 Nausea/Vomiting, Urinary Problem. 12:26 76-year-old female with past medical history of CVA, dementia, Parkinson's, ms3 hypothyroidism presents for vomiting that began on Tuesday. Patient's family also notes patient has not urinated since that time. Patient denies dysuria. Patient's daughter states the symptoms are similar to when patient has had UTIs in the past.. No recent NSAIDs. No bladder issues except for a dark, oliguric urine on Tuesday. Thirsty. Allergies codeine Allergy (Unknown, Verified 10/22/22 16:07) unk prochlorperazine edisylate [From Compazine] Allergy (Unknown, Verified 10/22/22 16:07) unk prochlorperazine maleate [From Compazine] Allergy (Unknown, Verified 10/22/22 16:07) unk Home medications list reviewed: Yes Home Medications: Acetaminophen [Tylenol] 650 mg PO Q4HP PRN 03/05/14 Aspirin 81 mg PO DAILY 03/05/14 Clopidogrel Bisulfate [Plavix*] 75 mg PO DAILY 03/05/14 Fish Oil/Borage/Flax/Om3,6,9 1 [[place] 3-6-9 Complex Softgel] 1 cap PO DAILY 03/05/14 Levothyroxine [Synthroid*] 150 mcg PO DAILY 03/05/14 Lovastatin [Mevacor*] 20 mg PO BEDTIME 03/05/14 Multivitamin [One-Daily Multi-Vitamin] 1 tab PO DAILY 03/05/14 Rivastigmine Patch [Exelon 4.6 mg Patch*] 4.6 mg TD DAILY 03/05/14 - Past Medical/Surgical History Diabetic: No -: CVA -: Lumbosacral spondylitis -: Hysterectomy -: Thyroidectomy -: Pins in toes -: UTI -: Cataract surgery (Both eyes) 07/22/21 -: Tonsilletomy -: Appendectomy -: Hysterectomy -: Thyroidectomy -: 2001 Stimulator implated in back for left leg - Social History Alcohol use: No CD- Drugs: No Caffeine use: No Place of Residence: Home Review of Systems 10-point ROS is otherwise unremarkable General: Weakness, Malaise Gastrointestinal: Abdominal Pain, Distention Physical Examination Temp Pulse Resp BP Pulse Ox 97.7 F 69 16 132/67 95 10/23/22 12:00 10/23/22 12:00 10/23/22 12:00 10/23/22 12:00 10/23/22 12:00 General: In no apparent distress, Cooperative HEENT: Atraumatic Neck: Supple Respiratory: Clear to auscultation bilaterally Cardiovascular: No edema, Regular rate/rhythm Gastrointestinal: Distended, Tenderness Musculoskeletal: No clubbing, No contractures Integumentary: No rashes, No cyanosis Neurological: Normal speech Blood work reviewed in the chart. Imagings Data: EXAM DESCRIPTION: CT - Abdomen Pelvis Wo Contrast - 10/22/2022 1:34 pm CLINICAL HISTORY: Abdominal pain /vomiting COMPARISON: None TECHNIQUE: Computed axial tomography of the abdomen and pelvis was obtained. IV and oral contrast were not requested. All CT scans are performed using dose optimization technique as appropriate and may include automated exposure control or mA/KV adjustment according to patient size. FINDINGS: The evaluation of solid organs, vessels and bowel is limited secondary to the lack of contrast administration. The liver, spleen, pancreas, adrenals and left kidney appear grossly normal. 5 millimeter calculus left kidney. Hydronephrosis. Cholelithiasis. Gallbladder wall thickening is seen. Moderate dilatation of jejunum and part of ileum. Distal ileum is decompressed. No free air. Neurostimulator device IMPRESSION: Ileal obstruction Cholelithiasis EXAM DESCRIPTION: US - Abdomen Exam Limited - 10/23/2022 10:02 am CLINICAL HISTORY: cholelithiasis, n/v, eval CBD/GB COMPARISON: <Comparisons> TECHNIQUE: Sonographic grayscale and color flow images of the right upper quadrant were obtained. FINDINGS: Exam is technically limited by over shadowing bowel gas. The gallbladder demonstrates small echogenic definite explicitly shadowing, gal lstones layering dependently along the body and neck of the gallbladder. No pericholecystic fluid or gallbladder wall thickening. The common bile duct is normal measuring 3 mm. The liver demonstrates no findings of intrahepatic biliary dilatation. IMPRESSION: Cholelithiasis. No sonographic evidence of acute cholecystitis. No intra or extrahepatic biliary ductal dilation. EXAM DESCRIPTION: RAD - Abdomen 1 View (KUB) - 10/23/2022 6:55 am CLINICAL HISTORY: ileus COMPARISON: No comparisonsAbdomen Pelvis Wo Contrast dated 10/22/2022 FINDINGS: Dilated small bowel centrally measuring up to 4.2 cm is similar to 10/22/2022. No acute osseous abnormality.Visualized lungs are unremarkable.No abnormal calcifications. Spinal stimulator. IMPRESSION: Dilated small bowel similar to 10/22/2022. Conclusions/Impression: Stage III MILLA may be due to hypovolemia complicated by ATN Proteinuria -No NSAIDs -Continue IVF with NS Hypovolemic Hyponatremia -Continue IVF with NS Metabolic Alkalosis -Replete potassium Hyperglycemia likely PreDM -Check A1C Ileal obstruction -NPO -Surgery following Case reviewed with Dr. Cortez Thank you kindly for the consultation
[2022-10-23] MEDS ORDERED: KCL 20 MEQ/100 mL IVPB 20 MEQ/100 ML BAG IV SCH (21:00)
[2022-10-23 21:51] LABS: Absolute Lymphocytes (CBC) 1.4 K/uL (0.7-4.9); Hematocrit 37.8 % (36.0-45.0); Lymphocytes % 13.7 % (15.3-44.8); MCV 84.6 fL (80-100); MPV 8.9 fL (7.6-11.3); RBC Red Blood Cell Count 4.47 M/uL (3.86-4.86)
[2022-10-23 22:10] LABS: Albumin 3.4 g/dL (3.4-5.0); Magnesium 2.6 mg/dL (1.6-2.4); Phosphorus 3.6 mg/dL (2.5-4.9); Protein, Total 6.5 g/dL (6.4-8.2)
[2022-10-24] MEDS: HEPARIN 5000 UNIT/ML 1 ML VIAL SQ SCH ×3 (00:05→16:08)
[2022-10-24 05:41] LABS: Phosphorus 2.8 mg/dL (2.5-4.9); Potassium 3.9 mmol/L (3.5-5.1); Uric Acid 9.9 mg/dL (2.6-6.0)
[2022-10-24 05:42] LABS: Magnesium 2.6 mg/dL (1.6-2.4)
--- NOTE | 2022-10-24 07:24 | P.PN ---
Date of Service: 10/24/22 Subjective: Nausea daughter states abdomen feels "more tight" no flatus, no BM ROS: 10 point ROS as noted above, otherwise negative Physical Exam: General: Alert, Oriented x1 (self only), uncomfortable appearing HEENT: EOMI, Sclerae nonicteric Pulm: Clear to auscultation bilaterally, Normal air movement CV: No edema, Regular rate/rhythm Abd: Soft and benign, moderate distention, Tenderness (mild, epigastric./periumbilical) Neurological: Normal speech, generalized weakness vitals reviewed Problem List: UTI SBO MILLA, suspect prerenal Cholelithiasis Generalized weakness h/o CVA hypothyroidism HLD moderate-severe dementia UTI, 2nd episode this year, previously did not have frequent UTIs SIRS 08/25: tachycardia prelim urine cx: e.coli Continue Rocephin tylenol for fever IVF CT with likely ileal obstruction / ileus vs mech obstruction ileus likely secondary to infection NPO - oral swabs allowed NGT if vomiting more Bowel Rest IVF KUB in AM general surgery - Bull consulted no acute surgical intervention needed at this time no specific RUQ pain +n/v from SBO / UTI check U/S suspect prerenal, pt with minimal po intake + n/v over the last ~4 days IVF, recheck BMP in AM monitor UOP, [facility] nephrology - Dr. Ramos consulted suspects Stage 3 MILLA due to hypovolemia complicated by ATN Kidney functions improved (creatinine dropped from 4 to 1.3) quite frequently per family VTE: heparin SQ Code: full Dispo: home, ~2 days
[2022-10-24] MEDS: CEFTRIAXONE 1,000 MG in NA CHLORIDE 0.9% 50 ML IVPB SCH (09:18)
[2022-10-24] MEDS: NA CHLORIDE 0.9% 1,000 ML IV SCH ×2 (09:19→15:40)
[2022-10-24] MEDS: ONDANSETRON 4 MG/2 ML VIAL IV PRN ×3 (09:26→23:18)
--- NOTE | 2022-10-24 10:23 | PN ---
Date of Progress Note: 10/24/2022 Subjective: The patient with no nausea or vomiting, but is belching from above. No bowel movement y esterday. No passing gas. She is tolerating sips of clear liquids. Objective: Vitals are stable. She is currently afebrile. Laboratory Data: Reviewed. Her kidney functions have improved remarkably. Her cultures are growing E coli from the urine. Assessment: Urinary tract infection with ileus likely. Recommendations: We will go and check an x-ray today to make sure there is no worsening of the abdom inal x-ray and maybe we can advance her diet based on her clinical condition later today. Her abdomi nal exam was soft, distention, better than yesterday and no peritonitis. We will follow this patient closely. ROSALIA/YOLA Voice ID: [id number] Report ID: [id number]
--- NOTE | 2022-10-24 14:15 | RAD REPORT ---
EXAM DESCRIPTION: RAD - Abdomen 1 View (KUB) - 10/24/2022 1:59 pm CLINICAL HISTORY: Abdomen pain FINDINGS: Since the prior exam there has been no significant change in the moderately dilated small bowel. Air within the colon is diminished. This probably represents a mechanical obstruction
[2022-10-24] MEDS ORDERED: NA CHLORIDE 0.9% 1,000 ML IV SCH (16:35)
[2022-10-24] MEDS ORDERED: HYDRALAZINE HCL 20 MG/ML VIAL IV PRN (16:35)
--- NOTE | 2022-10-24 21:36 | P.PN ---
Date of Service: 10/24/22 Vital Signs Temp Pulse Resp BP Pulse Ox 98.3 F 88 18 145/77 H 94 10/24/22 20:00 10/24/22 20:00 10/24/22 20:00 10/24/22 20:00 10/24/22 20:00 Medications Heparin Sodium (Porcine) (Heparin 5000 Unit/Ml 1 Ml Vial) 5,000 unit SQ Q8HR [facility] Last Admin: 10/24/22 16:08 Dose: Not Given Hydralazine HCl (Hydralazine Hcl 20 Mg/Ml Vial) 10 mg IV Q6HP PRN PRN Reason: Titrate to SBP (MUST DEFINE) Ceftriaxone Sodium 1,000 mg/ (Sodium Chloride) 50 mls @ 100 mls/hr IVPB DAILY [facility]; Protocol Last Admin: 10/24/22 09:18 Dose: 50 mls Sodium Chloride (Ns 1000 Ml Ivbag) 1,000 mls @ 75 mls/hr IV .[id number] [facility] Last Admin: 10/24/22 16:35 Dose: Not Given Ondansetron HCl (Ondansetron 4 Mg/2 Ml Vial) 4 mg IV Q6HP PRN PRN Reason: NAUSEA / VOMITING Last Admin: 10/24/22 15:39 Dose: 4 mg Sodium Chloride (Flush Normal Saline 10 Ml) 10 ml IV BID [facility] Last Admin: 10/24/22 20:12 Dose: 10 ml Microbiology Results 10/22/22 13:05 Clean Catch Urine Daykin Count - Final >100,000 CFU/ML. 10/22/22 13:05 Clean Catch Urine - Final Escherichia Coli Assessment/ Plan: Nephrology No dyspnea No chest pain N/V No acute events overnight Vitals, medications, blood work and imaging reviewed in the chart. General: In no apparent distress, Cooperative HEENT: Atraumatic Neck: Supple Respiratory: Clear to auscultation bilaterally Cardiovascular: No edema, Regular rate/rhythm Gastrointestinal: Distended, Tenderness Musculoskeletal: No clubbing, No contractures Integumentary: No rashes, No cyanosis Neurological: Normal speech Gunn light Blood work reviewed in the chart. Imagings Data: EXAM DESCRIPTION: CT - Abdomen Pelvis Wo Contrast - 10/22/2022 1:34 pm CLINICAL HISTORY: Abdominal pain /vomiting COMPARISON: None TECHNIQUE: Computed axial tomography of the abdomen and pelvis was obtained. IV and oral contrast were not requested. All CT scans are performed using dose optimization technique as appropriate and may include automated exposure control or mA/KV adjustment according to patient size. FINDINGS: The evaluation of solid organs, vessels and bowel is limited secondary to the lack of contrast administration. The liver, spleen, pancreas, adrenals and left kidney appear grossly normal. 5 millimeter calculus left kidney. Hydronephrosis. Cholelithiasis. Gallbladder wall thickening is seen. Moderate dilatation of jejunum and part of ileum. Distal ileum is decompressed. No free air. Neurostimulator device IMPRESSION: Ileal obstruction Cholelithiasis EXAM DESCRIPTION: US - Abdomen Exam Limited - 10/23/2022 10:02 am CLINICAL HISTORY: cholelithiasis, n/v, eval CBD/GB COMPARISON: <Comparisons> TECHNIQUE: Sonographic grayscale and color flow images of the right upper quadrant were obtained. FINDINGS: Exam is technically limited by over shadowing bowel gas. The gallbladder demonstrates small echogenic definite explicitly shadowing, gallstones layering dependently along the body and neck of the gallbladder. No pericholecystic fluid or gallbladder wall thickening. The common bile duct is normal measuring 3 mm. The liver demonstrates no findings of intrahepatic biliary dilatation. IMPRESSION: Cholelithiasis. No sonographic evidence of acute cholecystitis. No intra or extrahepatic biliary ductal dilation. EXAM DESCRIPTION: RAD - Abdomen 1 View (KUB) - 10/23/2022 6:55 am CLINICAL HISTORY: ileus COMPARISON: No comparisonsAbdomen Pelvis Wo Contrast dated 10/22/2022 FINDINGS: Dilated small bowel centrally measuring up to 4.2 cm is similar to 10/22/2022. No acute osseous abnormality.Visualized lungs are unremarkable.No abnormal calcifications. Spinal stimulator. IMPRESSION: Dilated small bowel similar to 10/22/2022. Conclusions/Impression: Stage III MILLA may be due to hypovolemia complicated by ATN Proteinuria -No NSAIDs -Change IVF to LR Hypovolemic Hyponatremia -Continue IVF Metabolic Alkalosis -Replete potassium prn Hyperglycemia likely PreDM -A1C pending Ileal obstruction -NPO -Surgery following
[2022-10-24] MEDS: Ringers Lactate 1,000 ML IV SCH (22:00)
[2022-10-25] MEDS: HEPARIN 5000 UNIT/ML 1 ML VIAL SQ SCH ×2 (01:00→08:19)
[2022-10-25 03:30] LABS: Absolute Lymphocytes (CBC) 1.4 K/uL (0.7-4.9); Hematocrit 39.8 % (36.0-45.0); Lymphocytes % 11.8 % (15.3-44.8); MCV 85.1 fL (80-100); MPV 9.2 fL (7.6-11.3); RBC Red Blood Cell Count 4.68 M/uL (3.86-4.86)
[2022-10-25 03:48] LABS: Phosphorus 1.9 mg/dL (2.5-4.9)
[2022-10-25 03:52] LABS: Potassium 2.9 mmol/L (3.5-5.1)
[2022-10-25] MEDS: KCL 20 MEQ/100 mL IVPB 20 MEQ/100 ML BAG IV SCH ×3 (04:12→12:51)
[2022-10-25] MEDS: ONDANSETRON 4 MG/2 ML VIAL IV PRN ×2 (04:24→08:42)
--- NOTE | 2022-10-25 07:02 | P.PN ---
Date of Service: 10/25/22 Subjective: Nausea, vomiting overnight - started 11pm and continues into the morning Feels moderately worse than yesterday refused NGT overnight ROS: 10 point ROS as noted above, otherwise negative Physical Exam: General: Alert, Oriented x1 (self only), uncomfortable appearing, dry heaving HEENT: EOMI, Sclerae nonicteric Pulm: Clear to auscultation bilaterally, Normal air movement CV: No edema, Regular rate/rhythm Abd: moderate distention, Tenderness (mild, epigastric./periumbilical) Neurological: Normal speech, generalized weakness vitals reviewed Problem List: UTI SBO MILLA, suspect prerenal Cholelithiasis Generalized weakness h/o CVA hypothyroidism HLD moderate-severe dementia UTI, 2nd episode this year, previously did not have frequent UTIs SIRS 08/25: tachycardia prelim urine cx: e.coli Continue Rocephin tylenol for fever IVF CT with likely ileal obstruction / ileus vs mech obstruction NPO - oral swabs allowed NGT ordered for vomiting and worsening symptoms Discussed with patient and patients daughter and okay with NGT although initially refused all night Bowel Rest IVF KUB: dilated small bowel caliber, concerning for obstruction general surgery - Bull consulted likely OR today given worsening of symptoms no specific RUQ pain +n/v from SBO / UTI check U/S suspect prerenal, pt with minimal po intake + n/v over the last ~4 days IVF, recheck BMP in AM monitor UOP, [facility] nephrology - Dr. Ramos consulted Stage 3 MILLA due to hypovolemia complicated by ATN Kidney functions improved (creatinine dropped from 4 to 1.3) quite frequently per family VTE: heparin SQ Code: full Dispo: home, ~3 days
[2022-10-25] MEDS: CEFTRIAXONE 1,000 MG in NA CHLORIDE 0.9% 50 ML IVPB SCH (08:20)
[2022-10-25] MEDS ORDERED: POTASSIUM PHOS IN 0.9 % NACL 15 MMOL/250 ML BAG IV ONE (09:00)
--- NOTE | 2022-10-25 09:27 | RAD REPORT ---
EXAM DESCRIPTION: RAD - Abdomen 1 View (KUB) - 10/25/2022 9:06 am CLINICAL HISTORY: f/u SBO COMPARISON: Abdomen radiograph 10/24/2022 and 10/23/2022. CT abdomen and pelvis 10/22/2022 TECHNIQUE: Single AP view of the abdomen. FINDINGS: Persistent central abdominal small bowel dilation, with maximal small bowel caliber 5.1 ce ntimeter. No evidence of free air or pneumatosis. Relative paucity of gas in the right lower quadrant and pelvis, nonspecific. Spinal stimulator battery pack and electrode in place. No suspicious calcif ications. No significant bony abnormality. IMPRESSION: Persistent dilated small bowel caliber, concerning for obstruction.
[2022-10-25] MEDS ORDERED: PHENOL 1.4% ORAL SPRAY 180ML MM PRN (10:02)
[2022-10-25] MEDS: Ringers Lactate 1,000 ML IV SCH ×2 (11:20→20:52)
--- NOTE | 2022-10-25 12:17 | RAD REPORT ---
EXAM DESCRIPTION: RAD - Abdomen Single View - 10/25/2022 11:18 am CLINICAL HISTORY: ng placement COMPARISON: Abdomen Exam Limited dated 10/23/2022; Abdomen 1 View (KUB) dated 10/23/2022; Abdomen 1 View (KUB) dated 10/25/2022 TECHNIQUE: Single AP view of the abdomen. FINDINGS: An enteric tube has been placed, its tip projects over the gastric body. The side hole micheline ears to be just be low low level of the gastroesophageal junction. Unchanged small bowel dilation. No evidence of pneumatosis or free air. No suspicious calcifications. No significant bony abnormality. IMPRESSION: Satisfactory enteric tube placement. Otherwise stable findings as above.
[2022-10-25] MEDS ORDERED: Ringers Lactate 1,000 ML IV ONE (12:44)
[2022-10-25] MEDS ORDERED: BUPIVACAINE 0.5% PF 10 ML VIAL ONE (13:04)
[2022-10-25] MEDS ORDERED: propofoL 200 MG/20 ML VIAL IV ONE (13:41)
[2022-10-25] MEDS ORDERED: MIDAZOLAM HCL 2 MG/2 ML INJ ONE (13:41)
[2022-10-25] MEDS ORDERED: ONDANSETRON 4 MG/2 ML VIAL ONE (13:42)
[2022-10-25] MEDS ORDERED: FENTANYL CITR 100 MCG/2 ML ONE (13:42)
[2022-10-25] MEDS ORDERED: ROCURONIUM 50 MG/5 ML VIAL IV ONE (13:42)
[2022-10-25] MEDS ORDERED: LIDOCAINE 2% MPF 5 ML VIAL ONE (13:42)
[2022-10-25] MEDS ORDERED: CEFOXITIN SODIUM 1 GM/VIAL ONE (13:56)
[2022-10-25] MEDS ORDERED: SUGAMMADEX SODIUM 200 MG/2 ML VIAL IV ONE (14:49)
[2022-10-25] MEDS ORDERED: KETOROLAC 30 MG/ML INJ ONE (14:53)
--- NOTE | 2022-10-25 14:56 | P.OP ---
Date of Service: 10/25/22 Preop diagnosis: Small bowel obstruction Postop diagnosis: Same, internal herniation of the mid ileum via a adhesive band Procedure performed: Exploratory laparotomy and lysis of adhesion Surgeon: Tawanda Gottlieb MD Press Writer: Ruth MCBRIDE Estimated blood loss: Minimal Specimen: None Findings: As above Anesthesia: General Complications: None Drains: None Fluids and blood products: Nonapplicable Disposition: Recovery room Operative note: Patient brought to the OR and placed in supine position. General anesthesia begun. Patient prepped and draped in the usual sterile fashion. 10 blade used to make a midline incision from the epigastrium to the umbilicus and slightly below. Fascia identified and divided. Peritoneal cavity entered with sharp dissection. Serous fluid in the peritoneal cavity aspirated. Full exploratory laparotomy took place. Findings are as follows: Normal GE junction, normal stomach, normal duodenal sweep, the jejunum was dilated all the way to the ileal region. There was a twist in the bowel which was caused by an adhesive band which created a internal hernia. The band was lysed with cautery. Approximately a 15 cm length of ileum was involved in the twist. It was narrowed but still functional. There was good motility. In the mesentery was very viable. Remainder of the ileum was within normal limits. The colon was within normal limits. Patient did have some hard stool. There is no other evidence of disease near the liver or the peritoneal surface or the pelvic. The re is no evidence of retroperitoneal masses. Entire abdomen was irrigated with saline with clear effluent. No evidence of bleeding or bowel injury appreciated. All counts were correct. Midline fascia was closed with #2 nylon running in nature. Subcutaneous wounds irrigated and bleeding controlled cautery. 3-0 chromic used to reapproximate subcutaneous tissue. Broad Top used to close skin. Sterile dressing applied and patient awakened. Patient taken to recovery room in good general condition. CC:
[2022-10-25] MEDS ORDERED: SODIUM CHLORIDE 0.9% 10ML INJ IV PRN (15:21)
[2022-10-25] MEDS ORDERED: HYDRALAZINE HCL 20 MG/ML VIAL ONE (15:28)
[2022-10-25] MEDS: HYDROMORPHONE HCL 1 MG/ML INJ IV PRN ×3 (15:37→22:14)
[2022-10-25] MEDS ORDERED: HYDROMORPHONE HCL 1 MG/ML INJ ONE (15:41)
--- NOTE | 2022-10-25 15:56 | PN ---
Subjective: The patient started vomiting last night. Refused NG tube last night and is currently wi lling to. I have an NG tube placed. Her x-ray was repeated today and it does not show any improveme nt at all and is actually unchanged from yesterday, may be slightly worse. There has been no improve ment since admission in bleed. This is a complete bowel obstruction. Objective: Abdomen is distended. Hypoactive bowel sounds. Tender in the upper abdomen. Minimal re bound. No rigidity or guarding. Laboratory Data: Reviewed. Electrolytes are reviewed and being replaced. Assessment: Small bowel obstruction, urinary tract infection and obstruction appears to be complete at this point. Recommendations: We will try to put an NG tube in. The patient needs to go to the OR for explorator y laparotomy and possible bowel resection. The patient and family understand the risks, benefits, an d alternatives and agrees to procedure. ROSALIA/MODLeroy Voice ID: [id number] Report ID: [id number]
[2022-10-25] MEDS ORDERED: AMINO ACIDS IV SCH ×3 (17:00)
[2022-10-25] MEDS ORDERED: MULTIVITAMINS IV SCH ×3 (17:00)
[2022-10-25] MEDS ORDERED: DEXTROSE 5% IV SCH ×3 (17:00)
[2022-10-25] MEDS ORDERED: LIPIDS IV SCH ×3 (17:00)
--- NOTE | 2022-10-25 19:36 | RAD REPORT ---
EXAM DESCRIPTION: RAD - Chest Single View - 10/25/2022 7:14 pm CLINICAL HISTORY: Device placement PICC line placement IMPRESSION: PICC line with its tip in the superior vena cava Nasogastric tube within the gastric fundus
[2022-10-25] MEDS: METRONIDAZOLE 500mg IVPB 500 MG/100 ML BAG IV SCH (20:53)
--- NOTE | 2022-10-25 21:14 | P.PN ---
Date of Service: 10/25/22 Vital Signs Temp Pulse Resp BP Pulse Ox 97.0 F 67 23 H 99/60 94 10/25/22 16:15 10/25/22 20:00 10/25/22 20:00 10/25/22 20:00 10/25/22 20:00 Medications Enoxaparin Sodium (Enoxaparin 40 Mg/0.4 Ml) 40 mg SQ DAILY [facility] Hydralazine HCl (Hydralazine Hcl 20 Mg/Ml Vial) 10 mg IV Q6HP PRN PRN Reason: Titrate to SBP (MUST DEFINE) Hydromorphone HCl (Hydromorphone Hcl 1 Mg/Ml Inj) 1 mg IV Q2HP PRN PRN Reason: Pain scale 5-7 (Moderate) Last Admin: 10/25/22 17:14 Dose: 1 mg Ceftriaxone Sodium 1,000 mg/ (Sodium Chloride) 50 mls @ 100 mls/hr IVPB DAILY [facility]; Protocol Last Admin: 10/25/22 08:20 Dose: 50 mls Lactated Ringer's (Lactated Ringers) 1,000 mls @ 75 mls/hr IV .[id number] [facility] Last Admin: 10/25/22 20:52 Dose: 1,000 mls Multivitamins 10 ml/ Fat Emulsion Intravenous 250 ml/AMINO ACIDS 4.25 %/DEXTROSE 5% 2,260 mls @ 94 mls/hr IV [id number] [facility] Last Admin: 10/25/22 20:56 Dose: 2,260 mls AMINO ACIDS 4.25 %/DEXTROSE 5% (Clinimix 4.25%-5% Solution) 2,000 mls @ 83.3 mls/hr IV [id number] [facility] Metronidazole/Sodium Chloride (Flagyl 500mg/100 Ml Iv Premix) 500 mg in 100 mls @ 200 mls/hr IV Q6HR [facility] Stop: 10/26/22 06:29 Last Admin: 10/25/22 20:53 Dose: 100 mls Mupirocin (Mupirocin 2% Oint 22gm Tube) 1 appl TOP BID [facility] Stop: 10/30/22 21:01 Ondansetron HCl (Ondansetron 4 Mg/2 Ml Vial) 4 mg IV Q6HP PRN PRN Reason: NAUSEA / VOMITING Last Admin: 10/25/22 08:42 Dose: 4 mg Pantoprazole Sodium (Pantoprazole 40 Mg Inj) 40 mg IVP DAILY [facility] Phenol (Phenol 1.4% Oral [place] 180ml) 2 appl MM Q4H PRN PRN Reason: SORE THROAT Last Admin: 10/25/22 10:44 Dose: 2 appl Sodium Chloride (Flush Normal Saline 10 Ml) 10 ml IV BID [facility] Last Admin: 10/25/22 20:52 Dose: 10 ml Sodium Chloride (Sodium Chloride 0.9% 10ml Inj) 10 ml IV UD PRN PRN Reason: Diluant Microbiology Results 10/22/22 13:05 Clean Catch Urine Moran Count - Final >100,000 CFU/ML. 10/22/22 13:05 Clean Catch Urine - Final Escherichia Coli Assessment/ Plan: Nephrology No dyspnea No chest pain N/V No acute events overnight Vitals, medications, blood work and imaging reviewed in the chart. General: In no apparent distress, Cooperative HEENT: Atraumatic Neck: Supple Respiratory: Clear to auscultation bilaterally Cardiovascular: No edema, Regular rate/rhythm Gastrointestinal: Distended, Tenderness Musculoskeletal: No clubbing, No contractures Integumentary: No rashes, No cyanosis Neurological: Normal speech Gunn light Blood work reviewed in the chart. Imagings Data: EXAM DESCRIPTION: CT - Abdomen Pelvis Wo Contrast - 10/22/2022 1:34 pm CLINICAL HISTORY: Abdominal pain /vomiting COMPARISON: None TECHNIQUE: Computed axial tomography of the abdomen and pelvis was obtained. IV and oral contrast were not requested. All CT scans are performed using dose optimization technique as appropriate and may include automated exposure control or mA/KV adjustment according to patient size. FINDINGS: The evaluation of solid organs, vessels and bowel is limited secondary to the lack of contrast administration. The liver, spleen, pancreas, adrenals and left kidney appear grossly normal. 5 millimeter calculus left kidney. Hydronephrosis. Cholelithiasis. Gallbladder wall thickening is seen. Moderate dilatation of jejunum and part of ileum. Distal ileum is decompressed. No free air. Neurostimulator device IMPRESSION: Ileal obstruction Cholelithiasis EXAM DESCRIPTION: US - Abdomen Exam Limited - 10/23/2022 10:02 am CLINICAL HISTORY: cholelithiasis, n/v, eval CBD/GB COMPARISON: <Comparisons> TECHNIQUE: Sonographic grayscale and color flow images of the right upper quadrant were obtained. FINDINGS: Exam is technically limited by over shadowing bowel gas. The gallbladder demonstrates small echogenic definite explicitly shadowing, gallstones layering dependently along the body and neck of the gallbladder. No pericholecystic fluid or gallbladder wall thickening. The common bile duct is normal measuring 3 mm. The liver demonstrates no findings of intrahepatic biliary dilatation. IMPRESSION: Cholelithiasis. No sonographic evidence of acute cholecystitis. No intra or extrahepatic biliary ductal dilation. EXAM DESCRIPTION: RAD - Abdomen 1 View (KUB) - 10/23/2022 6:55 am CLINICAL HISTORY: ileus COMPARISON: No comparisonsAbdomen Pelvis Wo Contrast dated 10/22/2022 FINDINGS: Dilated small bowel centrally measuring up to 4.2 cm is similar to 10/22/2022. No acute osseous abnormality.Visualized lungs are unremarkable.No abnormal calcifications. Spinal stimulator. IMPRESSION: Dilated small bowel similar to 10/22/2022. Conclusions/Impression: Stage III MILLA may be due to hypovolemia complicated by ATN Proteinuria -No NSAIDs -Change IVF 1/2NS Hypovolemic Hyponatremia -Continue IVF Hypokalemia -Replete potassium Metabolic Alkalosis -Replete potassium prn Hypophosphatemia -Replete PO4 PreDM A1C 6 -NPO at this time Ileal obstruction -NPO -Plan for surgery today
[2022-10-25] MEDS: NACHLORIDE 0.45% 1,000 ML IV SCH (22:14)
[2022-10-25] MEDS: MUPIROCIN 2% OINT 22GM TUBE TOP SCH (22:20)
[2022-10-26] MEDS: METRONIDAZOLE 500mg IVPB 500 MG/100 ML BAG IV SCH ×2 (00:40→06:09)
[2022-10-26] MEDS: HYDROMORPHONE HCL 1 MG/ML INJ IV PRN ×5 (01:30→22:07)
[2022-10-26] MEDS: ONDANSETRON 4 MG/2 ML VIAL IV PRN ×2 (04:01→09:45)
[2022-10-26 04:59] LABS: Absolute Lymphocytes (CBC) 1.1 K/uL (0.7-4.9); Hematocrit 36.4 % (36.0-45.0); Lymphocytes % 7.6 % (15.3-44.8); MCV 85.5 fL (80-100); MPV 9.2 fL (7.6-11.3); RBC Red Blood Cell Count 4.26 M/uL (3.86-4.86)
[2022-10-26 05:14] LABS: Magnesium 2.1 mg/dL (1.6-2.4); Phosphorus 1.6 mg/dL (2.5-4.9); Potassium 3.9 mmol/L (3.5-5.1)
[2022-10-26] MEDS ORDERED: POTASSIUM PHOS IN 0.9 % NACL 15 MMOL/250 ML BAG IV ONE (05:49)
[2022-10-26] MEDS: NACHLORIDE 0.45% 1,000 ML IV SCH (08:00)
[2022-10-26] MEDS: PANTOPRAZOLE 40 MG INJ IVP SCH (08:49)
[2022-10-26] MEDS: MUPIROCIN 2% OINT 22GM TUBE TOP SCH ×2 (08:49→22:15)
[2022-10-26] MEDS: CEFTRIAXONE 1,000 MG in NA CHLORIDE 0.9% 50 ML IVPB SCH (08:49)
[2022-10-26] MEDS: ENOXAPARIN 40 MG/0.4 ML SQ SCH (08:49)
[2022-10-26] MEDS ORDERED: NACHLORIDE 0.45% 1,000 ML IV SCH (11:25)
--- NOTE | 2022-10-26 13:17 | P.PN ---
Subjective Date of Service: 10/26/22 Chief Complaint: UTI, Nausea/Vomitting Patient seen postop day 1. She is stable on oxygen by nasal cannula. Patient has advanced dementia and not able to give any history. No recorded fever. Physical Examination - Vital Signs Temperature: 98.4 F Blood Pressure: 143/80 Pulse: 78 Respirations: 23 Pulse Ox (%): 100 Assessment And Plan - Plan Physical Exam: General: Alert, Oriented x1 (self only), NAD. HEENT: Sclerae nonicteric Pulm: Clear to auscultation bilaterally, Normal air movement CV: No edema, Regular rate/rhythm Abd: Nondistended, mild tenderness, hypoactive BS. Neurological: Normal speech, generalized weakness. No focal motor deficit. vitals reviewed Problem List: UTI SBO MILLA, suspect prerenal Cholelithiasis Generalized weakness h/o CVA hypothyroidism HLD moderate-severe dementia UTI, 2nd episode this year. SIRS 1/4: tachycardia urine cx: e.coli-pansensitive Continue Rocephin tylenol as needed for fever Continue IV fluid until oral intake improve. SBO CT with likely ileal obstruction / ileus vs mech obstruction Seen by general surgery Dr. Gottlieb. Exploratory laparotomy done, internal hernia noted, lysis evaluation to free up the small bowel. No bowel resection NGT in place. Diet resumption per general surgery. Continue IVF. Right upper quadrant ultrasound demonstrated cholelithiasis. MILLA suspect prerenal, pt with minimal po intake + n/v over 4 days MILLA improved. Continue IV fluid. Nephrology Dr. Ramos is following Monitor and replete electrolytes. Replete phosphorus. Dementia sundowns quite frequently per family Monitor Haldol as needed for agitation. PT consult. VTE: heparin SQ Code: full Dispo: home, ~3 days
[2022-10-26] MEDS ORDERED: AMINO ACIDS 4.25 %/DEXTROSE 5% 2,000 ML IV SCH (17:00)
--- NOTE | 2022-10-26 17:42 | P.PN ---
Date of Service: 10/26/22 Vital Signs Temp Pulse Resp BP Pulse Ox 97.6 F 81 18 130/76 97 10/26/22 16:00 10/26/22 16:00 10/26/22 16:56 10/26/22 16:00 10/26/22 16:56 Medications Aspirin (Aspirin 81 Mg Chewable Tablet) 81 mg PO DAILY [facility] TO [facility] Atorvastatin Calcium (Atorvastatin 10 Mg Tab) 10 mg PO BEDTIME [facility] Clopidogrel Bisulfate (Clopidogrel 75 Mg Tablet) 75 mg PO DAILY [facility] Enoxaparin Sodium (Enoxaparin 40 Mg/0.4 Ml) 40 mg SQ DAILY [facility] Last Admin: 10/26/22 08:49 Dose: 40 mg Hydralazine HCl (Hydralazine Hcl 20 Mg/Ml Vial) 10 mg IV Q6HP PRN PRN Reason: Titrate to SBP (MUST DEFINE) Hydromorphone HCl (Hydromorphone Hcl 1 Mg/Ml Inj) 1 mg IV Q2HP PRN PRN Reason: Pain scale 5-7 (Moderate) Last Admin: 10/26/22 16:56 Dose: 1 mg Ceftriaxone Sodium 1,000 mg/ (Sodium Chloride) 50 mls @ 100 mls/hr IVPB DAILY [facility]; Protocol Last Admin: 10/26/22 08:49 Dose: 50 mls Multivitamins 10 ml/ Fat Emulsion Intravenous 250 ml/AMINO ACIDS 4.25 %/DEXTROSE 5% 2,260 mls @ 94 mls/hr IV [id number]@1700 [facility] Last Admin: 10/25/22 20:56 Dose: 2,260 mls AMINO ACIDS 4.25 %/DEXTROSE 5% (Clinimix 4.25%-5% Solution) 2,000 mls @ 83.3 mls/hr IV [id number]@1700 [facility] Last Admin: 10/26/22 17:03 Dose: 2,000 mls Sodium Chloride (Sodium Chloride 0.45%) 1,000 mls @ 75 mls/hr IV .[id number] [facility] Levothyroxine Sodium (Levothyroxine Sod 0.075 Mg Tab) 0.15 mg PO DAILYAC [facility] Mupirocin (Mupirocin 2% Oint 22gm Tube) 1 appl TOP BID [facility] Stop: 10/30/22 21:01 Last Admin: 10/26/22 08:49 Dose: 1 micheline Ondansetron HCl (Ondansetron 4 Mg/2 Ml Vial) 4 mg IV Q6HP PRN PRN Reason: NAUSEA / VOMITING Last Admin: 10/26/22 09:45 Dose: 4 mg Pantoprazole Sodium (Pantoprazole 40 Mg Inj) 40 mg IVP DAILY [facility] Last Admin: 10/26/22 08:49 Dose: 40 mg Phenol (Phenol 1.4% Oral [place] 180ml) 2 appl MM Q4H PRN PRN Reason: SORE THROAT Last Admin: 10/25/22 10:44 Dose: 2 appl Rivastigmine (Rivastigmine 4.6 Mg/24 Hr Patch) 4.6 mg TD DAILY [facility] Sodium Chloride (Flush Normal Saline 10 Ml) 10 ml IV BID [facility] Last Admin: 10/26/22 08:50 Dose: 10 ml Sodium Chloride (Sodium Chloride 0.9% 10ml Inj) 10 ml IV UD PRN PRN Reason: Diluant Microbiology Results 10/22/22 13:05 Clean Catch Urine [place] Count - Final >100,000 CFU/ML. 10/22/22 13:05 Clean Catch Urine - Final Escherichia Coli Assessment/ Plan: Nephrology No dyspnea No chest pain Abdominal surgery yesterday Vitals, medications, blood work and imaging reviewed in the chart. General: In no apparent distress, Cooperative HEENT: Atraumatic Neck: Supple Respiratory: Clear to auscultation bilaterally Cardiovascular: No edema, Regular rate/rhythm Gastrointestinal: Distended, Tenderness Musculoskeletal: No clubbing, No contractures Integumentary: No rashes, No cyanosis Neurological: Normal speech Gunn light Blood work reviewed in the chart. Imagings Data: EXAM DESCRIPTION: CT - Abdomen Pelvis Wo Contrast - 10/22/2022 1:34 pm CLINICAL HISTORY: Abdominal pain /vomiting COMPARISON: None TECHNIQUE: Computed axial tomography of the abdomen and pelvis was obtained. IV and oral contrast were not requested. All CT scans are performed using dose optimization technique as appropriate and may include automated exposure control or mA/KV adjustment according to patient size. FINDINGS: The evaluation of solid organs, vessels and bowel is limited secondary to the lack of contrast administration. The liver, spleen, pancreas, adrenals and left kidney appear grossly normal. 5 millimeter calculus left kidney. Hydronephrosis. Cholelithiasis. Gallbladder wall thickening is seen. Moderate dilatation of jejunum and part of ileum. Distal ileum is decompressed. No free air. Neurostimulator device IMPRESSION: Ileal obstruction Cholelithiasis EXAM DESCRIPTION: US - Abdomen Exam Limited - 10/23/2022 10:02 am CLINICAL HISTORY: cholelithiasis, n/v, eval CBD/GB COMPARISON: <Comparisons> TECHNIQUE: Sonographic grayscale and color flow images of the right upper quadrant were obtained. FINDINGS: Exam is technically limited by over shadowing bowel gas. The gallbladder demonstrates small echogenic definite explicitly shadowing, gallstones layering dependently along the body and neck of the gallbladder. No pericholecystic fluid or gallbladder wall thickening. The common bile duct is normal measuring 3 mm. The liver demonstrates no findings of intrahepatic biliary dilatation. IMPRESSION: Cholelithiasis. No sonographic evidence of acute cholecystitis. No intra or extrahepatic biliary ductal dilation. EXAM DESCRIPTION: RAD - Abdomen 1 View (KUB) - 10/23/2022 6:55 am CLINICAL HISTORY: ileus COMPARISON: No comparisonsAbdomen Pelvis Wo Contrast dated 10/22/2022 FINDINGS: Dilated small bowel centrally measuring up to 4.2 cm is similar to 10/22/2022. No acute osseous abnormality.Visualized lungs are unremarkable.No abnormal calcifications. Spinal stimulator. IMPRESSION: Dilated small bowel similar to 10/22/2022. Conclusions/Impression: Stage III MILLA may be due to hypovolemia complicated by ATN Proteinuria -No NSAIDs -Increase IVF 1/2NS Hypernatremia -Continue IVF Hypokalemia -Replete potassium prn Metabolic Alkalosis -Resolved Hypophosphatemia -Replete PO4 PreDM A1C 6 -NPO at this time -Continue PPN -RISS prn Ileal obstruction sp surgery 01-25-23 -NPO -Follow up with surgery
[2022-10-26] MEDS: ATORVASTATIN 10 MG TAB PO SCH (21:00)
[2022-10-26] MEDS ORDERED: LOVASTATIN 20 MG PO SCH (21:00)
[2022-10-27] MEDS: NACHLORIDE 0.45% 1,000 ML IV SCH ×2 (02:10→06:54)
[2022-10-27] MEDS: HYDROMORPHONE HCL 1 MG/ML INJ IV PRN ×5 (04:00→20:38)
[2022-10-27 04:53] LABS: Absolute Lymphocytes (CBC) 1.9 K/uL (0.7-4.9); Hematocrit 35.6 % (36.0-45.0); Lymphocytes % 17.9 % (15.3-44.8); MCV 85.5 fL (80-100); MPV 9.3 fL (7.6-11.3); RBC Red Blood Cell Count 4.16 M/uL (3.86-4.86)
[2022-10-27 05:12] LABS: Magnesium 1.8 mg/dL (1.6-2.4); Potassium 3.2 mmol/L (3.5-5.1)
[2022-10-27] MEDS: ONDANSETRON 4 MG/2 ML VIAL IV PRN ×2 (06:14→16:59)
[2022-10-27] MEDS: LEVOTHYROXINE SOD 0.075 MG TAB PO SCH (06:18)
[2022-10-27] MEDS: RIVASTIGMINE 4.6 MG/24 HR PATCH TD SCH (08:37)
[2022-10-27] MEDS: PANTOPRAZOLE 40 MG INJ IVP SCH (08:38)
[2022-10-27] MEDS: ENOXAPARIN 40 MG/0.4 ML SQ SCH (08:38)
[2022-10-27] MEDS: CEFTRIAXONE 1,000 MG in NA CHLORIDE 0.9% 50 ML IVPB SCH (08:38)
[2022-10-27] MEDS: ASPIRIN 81 MG CHEWABLE TABLET PO SCH (09:00)
[2022-10-27] MEDS: MUPIROCIN 2% OINT 22GM TUBE TOP SCH ×2 (09:00→21:11)
[2022-10-27] MEDS: CLOPIDOGREL 75 MG TABLET PO SCH (09:00)
[2022-10-27] MEDS ORDERED: MAGNESIUM SULFATE 1 gm IVPB 1 GM/100 ML BAG IV ONE (09:59)
[2022-10-27] MEDS ORDERED: Ringers Lactate 1,000 ML IV SCH ×2 (10:00→11:00)
[2022-10-27] MEDS: KCL 20 MEQ/100 mL IVPB 20 MEQ/100 ML BAG IV SCH ×2 (10:15→12:24)
[2022-10-27] MEDS ORDERED: NA CHLORIDE IV ONE (10:56)
[2022-10-27] MEDS ORDERED: POTASSIUM PHOS IV ONE (10:56)
--- NOTE | 2022-10-27 11:40 | P.PN ---
Nephrology (S) Pt remains in the ICU, hemodynamically stable, pain controlled, no reports of large gastric losses, getting potassium replacement Vitals, medications, blood work and imaging reviewed in the chart. General: In no apparent distress, Cooperative HEENT: Atraumatic, NC, NGT Neck: Supple Respiratory: b/l air entry, no rhonchi Cardiovascular: No edema, Regular rate/rhythm Gastrointestinal: Soft, mild distention, midline dressing, hypoactive BS Musculoskeletal: No clubbing, No contractures, SCDs present Integumentary: No rashes, No cyanosis Neurological: Normal speech, awake, responsive, mildly tremulous Conclusions/Impression: Stage III ARF with Cr level > 4 mg/dl on admission, resolving -Cr level downward trending nicely, will lower IVF rate as pt now on PPN and d/c after current bag of LR Hypernatremia -Resolved, cont to monitor closely. No reports of gastric losses, other Hypokalemia, marked hypophosphatemia -Ordered additional KPhos and KCL IVF, will f/u on lytes this afternoon Calculus of kidney Incidentally noted 5 mm calculus in the left kidney, possible mild hydro on review of images. Will need to f/u as OP once current acute issues resolved Cristo Milan MD, MINDY
--- NOTE | 2022-10-27 12:11 | PN ---
Date of Progress Note: 10/26/2022 Subjective: The patient is doing well. No significant pain except for mild incisional pain. No boby sea or vomiting. Objective: Vital Signs: Afebrile. Abdomen: Soft, distended, hypoactive bowel sounds. Dressing is clean, dry, and intact. Laboratory Data: Reviewed. Assessment: Status post exploratory laparotomy for small bowel obstruction secondary to internal her niation. Recommendations: The patient is medically clinically stable, can be transferred to the floor. Tru nue TPN, antibiotics, physical therapy, DVT prophylaxis, and incentive spirometry. /MODL Voice ID: [id number] Report ID: [id number]
--- NOTE | 2022-10-27 15:20 | P.PN ---
Subjective Date of Service: 10/27/22 Chief Complaint: UTI, Nausea/Vomitting Patient seen postop day 2. She is stable on oxygen by nasal cannula. No recorded fever. She is tolerating ice chips. Physical Examination - Vital Signs Temperature: 97.5 F Blood Pressure: 140/68 Pulse: 61 Respirations: 22 Pulse Ox (%): 99 Assessment And Plan - Plan Physical Exam: General: Alert, Oriented x1 (self only), NAD. HEENT: Sclerae nonicteric Pulm: Clear to auscultation bilaterally, Normal air movement CV: No edema, Regular rate/rhythm Abd: Nondistended, mild tenderness, hypoactive BS. Neurological: Normal speech, generalized weakness. No focal motor deficit. vitals reviewed Problem List: UTI SBO MILLA, suspect prerenal Cholelithiasis Generalized weakness h/o CVA hypothyroidism HLD moderate-severe dementia UTI, 2nd episode this year. SIRS 1/4: tachycardia. Did not meet criteria for sepsis. urine cx: e.coli-pansensitive Continue Rocephin. Patient is 5 days of treatment. tylenol as needed for fever Continue IV fluid until oral intake improve. SBO CT with likely ileal obstruction / ileus vs mech obstruction Seen by general surgery Dr. Gottlieb. Exploratory laparotomy done, internal hernia noted, lysis evaluation to free up the small bowel. No bowel resection NGT in place. Diet resumption per general surgery. Continue IVF. Right upper quadrant ultrasound demonstrated cholelithiasis. MILLA suspect prerenal, pt with minimal po intake + n/v over 4 days MILLA improved. Continue IV fluid. Nephrology Dr. Ramos is following Monitor and replete electrolytes. Replete phosphorus. Dementia sundowns quite frequently per family PT evaluation Monitor Haldol as needed for agitation. VTE: heparin SQ Code: full Dispo: Pending PT evaluation.
--- NOTE | 2022-10-27 15:23 | PN ---
Date of Progress Note: 10/27/2022 Subjective: The patient is awake, alert, not passing gas. Objective: Vital Signs: Stable. She is currently afebrile. Abdomen: Soft, slightly distended. Hypoactive bowel sounds, decreased since yesterday. No rebound, rigidity, or guarding. Dressing is clean, dry, intact. Wound is clean dry and intact. Laboratory Data: Reviewed. H and H are stable. Chemistry reviewed. Potassium is being replaced. P hosphorus is being replaced. Gastric drainage is down to 100 cc last shift. Assessment: Status post exploratory laparotomy for small bowel obstruction. Recommendations: The patient can be transferred to the floor. Continue n.p.o., NG tube p hysical therapy, electrolyte replacement, TPN as ordered. Once we have evidence of bowel function, suma lieberman will clamp the NG tube and start her on clear liquids. The patient is clinically stable and slowly improving. /MODL Voice ID: [id number] Report ID: [id number]
[2022-10-27] MEDS ORDERED: DEXTROSE 10%-WATER 500 ML IV SCH (16:00)
[2022-10-27] MEDS: AA 5%/D20W/ELECTROLYTES-TPN 2,000 ML, Lipids 20% 250 ML with MULTIVITAMINS INJ 10 ML IV SCH ×3 (16:07)
[2022-10-27 18:16] LABS: Phosphorus 2.1 mg/dL (2.5-4.9)
[2022-10-27] MEDS: ATORVASTATIN 10 MG TAB PO SCH (21:00)
[2022-10-28] MEDS: LEVOTHYROXINE SOD 0.075 MG TAB PO SCH (05:03)
[2022-10-28] MEDS: HYDROMORPHONE HCL 1 MG/ML INJ IV PRN ×3 (05:03→21:44)
[2022-10-28 05:33] LABS: Absolute Lymphocytes (CBC) 1.6 K/uL (0.7-4.9); Hematocrit 36.9 % (36.0-45.0); Lymphocytes % 17.8 % (15.3-44.8); MCV 84.3 fL (80-100); MPV 9.1 fL (7.6-11.3); RBC Red Blood Cell Count 4.37 M/uL (3.86-4.86)
[2022-10-28 05:46] LABS: Albumin 2.2 g/dL (3.4-5.0); Bilirubin Total 0.3 mg/dL (0.2-1.0); Phosphorus 1.3 mg/dL (2.5-4.9); Potassium 3.8 mmol/L (3.5-5.1); Protein, Total 4.8 g/dL (6.4-8.2)
[2022-10-28 07:09] LABS: Magnesium 1.8 mg/dL (1.6-2.4)
[2022-10-28] MEDS: ASPIRIN 81 MG CHEWABLE TABLET PO SCH (08:47)
[2022-10-28] MEDS: CLOPIDOGREL 75 MG TABLET PO SCH (09:00)
[2022-10-28] MEDS ORDERED: KCL 20 MEQ/100 mL IVPB 20 MEQ/100 ML BAG IV SCH (09:00)
[2022-10-28] MEDS ORDERED: POTASSIUM PHOS IN 0.9 % NACL 15 MMOL/250 ML BAG IV ONE ×2 (09:00→20:34)
[2022-10-28] MEDS: MUPIROCIN 2% OINT 22GM TUBE TOP SCH ×2 (09:03→19:32)
[2022-10-28] MEDS: RIVASTIGMINE 4.6 MG/24 HR PATCH TD SCH (09:05)
[2022-10-28] MEDS: ENOXAPARIN 40 MG/0.4 ML SQ SCH (09:06)
[2022-10-28] MEDS: PANTOPRAZOLE 40 MG INJ IVP SCH (09:07)
[2022-10-28] MEDS: CEFTRIAXONE 1,000 MG in NA CHLORIDE 0.9% 50 ML IVPB SCH (09:07)
--- NOTE | 2022-10-28 11:20 | P.PN ---
Date of Service: 10/28/22 Subjective: Patient with no complaints Objective: Vitals stable, afebrile Abdomen: Soft, nondistended, positive bowel sounds with dressing clean dry and intact Assessment: Status post exploratory laparotomy and lysis of adhesions Plan: Clamp NG tube and sips of clear liquids, DC Gunn, continue PT, DVT prophylaxis and incentive spirometry as ordered CC:
[2022-10-28] MEDS: AA 5%/D20W/ELECTROLYTES-TPN 2,000 ML IV SCH (17:51)
--- NOTE | 2022-10-28 18:10 | P.PN ---
Subjective Date of Service: 10/28/22 Chief Complaint: UTI, Nausea/Vomitting Patient seen postop day 3. She is stable on oxygen by nasal cannula. No issues overnight. No fever. Physical Examination - Vital Signs Temperature: 98.3 F Blood Pressure: 125/85 Pulse: 102 Respirations: 18 Pulse Ox (%): 97 Assessment And Plan - Plan Physical Exam: General: Alert, Oriented x1 (self only), NAD. HEENT: Sclerae nonicteric Pulm: Clear to auscultation bilaterally, Normal air movement CV: No edema, Regular rate/rhythm Abd: Nondistended, mild tenderness, hypoactive BS. Neurological: Normal speech, generalized weakness. No focal motor deficit. vitals reviewed Problem List: UTI SBO MILLA, suspect prerenal Cholelithiasis Generalized weakness h/o CVA hypothyroidism HLD moderate-severe dementia UTI, 2nd episode this year. SIRS /: tachycardia. Did not meet criteria for sepsis. urine cx: e.coli-pansensitive Continue Rocephin. Patient to complete 5 days of treatment. tylenol as needed for fever SBO CT with likely ileal obstruction / ileus vs mech obstruction Seen by general surgery Dr. Gottlieb. Exploratory laparotomy done, internal hernia noted, lysis of adhesions done to free up the small bowel. No bowel resection NGT clamped today per surgery Now is tolerating ice chips Continue IVF. Right upper quadrant ultrasound demonstrated cholelithiasis. MILLA suspect prerenal, pt with minimal po intake and n/v over 4 days MILLA improved. Continue TPN Nephrology Dr. Ramos is following Monitor and replete electrolytes. Replete phosphorus. Dementia sundowns quite frequently per family Continue PT Monitor Haldol as needed for agitation. Urinary retention Gunn catheter removed today but patient retaining about 500 mils of urine. Straight cath and wait for return of bladder function otherwise may need to reinsert and maintain Gunn. VTE: heparin SQ Code: full Dispo: Skilled rehab.
[2022-10-28] MEDS: ATORVASTATIN 10 MG TAB PO SCH (19:31)
--- NOTE | 2022-10-28 20:38 | P.PN ---
Date of Service: 10/28/22 Vital Signs Temp Pulse Resp BP Pulse Ox 98.3 F 102 H 20 125/85 96 10/28/22 18:10 10/28/22 18:10 10/28/22 19:30 10/28/22 18:10 10/28/22 19:30 Medications Aspirin (Aspirin 81 Mg Chewable Tablet) 81 mg PO DAILY [facility] Last Admin: 10/28/22 08:47 Dose: Not Given Atorvastatin Calcium (Atorvastatin 10 Mg Tab) 10 mg PO BEDTIME [facility] Last Admin: 10/28/22 19:31 Dose: 10 mg Clopidogrel Bisulfate (Clopidogrel 75 Mg Tablet) 75 mg PO DAILY [facility] Last Admin: 10/28/22 09:00 Dose: Not Given Enoxaparin Sodium (Enoxaparin 40 Mg/0.4 Ml) 40 mg SQ DAILY [facility] Last Admin: 10/28/22 09:06 Dose: 40 mg Hydralazine HCl (Hydralazine Hcl 20 Mg/Ml Vial) 10 mg IV Q6HP PRN PRN Reason: Titrate to SBP (MUST DEFINE) Hydromorphone HCl (Hydromorphone Hcl 1 Mg/Ml Inj) 1 mg IV Q2HP PRN PRN Reason: Pain scale 5-7 (Moderate) Last Admin: 10/28/22 19:30 Dose: 1 mg Ceftriaxone Sodium 1,000 mg/ (Sodium Chloride) 50 mls @ 100 mls/hr IVPB DAILY [facility]; Protocol Last Admin: 10/28/22 09:07 Dose: 50 mls Multivitamins 10 ml/ Amino Acids/Electrolytes/ Fat Emulsion Intravenous 2,260 mls @ 70 mls/hr IV M,W,F [facility] Last Admin: 10/27/22 16:07 Dose: 2,260 mls Dextrose (D10w 500 Ml Ivpb) 500 mls @ 0 mls/hr IV .Q0M [facility] Last Admin: 10/27/22 15:43 Dose: 500 mls Amino Acids/Electrolytes (Clinimix E 5%-20% Solution) 2,000 mls @ 70 mls/hr IV SuTuThSa@1700 [facility] Last Admin: 10/28/22 17:51 Dose: 2,000 mls Levothyroxine Sodium (Levothyroxine Sod 0.075 Mg Tab) [facility] Last Admin: 10/28/22 05:03 Dose: 0.15 mg Mupirocin (Mupirocin 2% Oint 22gm Tube) 1 appl TOP BID [facility] Stop: 10/30/22 21:01 Last Admin: 10/28/22 19:32 Dose: 1 micheline Ondansetron HCl (Ondansetron 4 Mg/2 Ml Vial) 4 mg IV Q6HP PRN PRN Reason: NAUSEA / VOMITING Last Admin: 10/27/22 16:59 Dose: 4 mg Pantoprazole Sodium (Pantoprazole 40 Mg Inj) 40 mg IVP DAILY [facility] Last Admin: 10/28/22 09:07 Dose: 40 mg Phenol (Phenol 1.4% Oral [place] 180ml) 2 appl MM Q4H PRN PRN Reason: SORE THROAT Last Admin: 10/25/22 10:44 Dose: 2 appl Rivastigmine (Rivastigmine 4.6 Mg/24 Hr Patch) 4.6 mg TD DAILY [facility] Last Admin: 10/28/22 09:05 Dose: 4.6 mg Sodium Chloride (Flush Normal Saline 10 Ml) 10 ml IV BID [facility] Last Admin: 10/28/22 19:31 Dose: 10 ml Sodium Chloride (Sodium Chloride 0.9% 10ml Inj) 10 ml IV UD PRN PRN Reason: Diluant Microbiology Results 10/22/22 13:05 Clean Catch Urine [place] Count - Final >100,000 CFU/ML. 10/22/22 13:05 Clean Catch Urine - Final Escherichia Coli Assessment/ Plan: Nephrology No dyspnea No chest pain No acute events overnight Vitals, medications, blood work and imaging reviewed in the chart. General: In no apparent distress, Cooperative HEENT: Atraumatic Neck: Supple Respiratory: Clear to auscultation bilaterally Cardiovascular: No edema, Regular rate/rhythm Gastrointestinal: Distended, Tenderness Musculoskeletal: No clubbing, No contractures Integumentary: No rashes, No cyanosis Neurological: Normal speech Blood work reviewed in the chart. Imagings Data: EXAM DESCRIPTION: CT - Abdomen Pelvis Wo Contrast - 10/22/2022 1:34 pm CLINICAL HISTORY: Abdominal pain /vomiting COMPARISON: None TECHNIQUE: Computed axial tomography of the abdomen and pelvis was obtained. IV and oral contrast were not requested. All CT scans are performed using dose optimization technique as appropriate and may include automated exposure control or mA/KV adjustment according to patient size. FINDINGS: The evaluation of solid organs, vessels and bowel is limited secondary to the lack of contrast administration. The liver, spleen, pancreas, adrenals and left kidney appear grossly normal. 5 millimeter calculus left kidney. Hydronephrosis. Cholelithiasis. Gallbladder wall thickening is seen. Moderate dilatation of jejunum and part of ileum. Distal ileum is decompressed. No free air. Neurostimulator device IMPRESSION: Ileal obstruction Cholelithiasis EXAM DESCRIPTION: US - Abdomen Exam Limited - 10/23/2022 10:02 am CLINICAL HISTORY: cholelithiasis, n/v, eval CBD/GB COMPARISON: <Comparisons> TECHNIQUE: Sonographic grayscale and color flow images of the right upper quadrant were obtained. FINDINGS: Exam is technically limited by over shadowing bowel gas. The gallbladder demonstrates small echogenic definite explicitly shadowing, gallstones layering dependently along the body and neck of the gallbladder. No pericholecystic fluid or gallbladder wall thickening. The common bile duct is normal measuring 3 mm. The liver demonstrates no findings of intrahepatic biliary dilatation. IMPRESSION: Cholelithiasis. No sonographic evidence of acute cholecystitis. No intra or extrahepatic biliary ductal dilation. EXAM DESCRIPTION: RAD - Abdomen 1 View (KUB) - 10/23/2022 6:55 am CLINICAL HISTORY: ileus COMPARISON: No comparisonsAbdomen Pelvis Wo Contrast dated 10/22/2022 FINDINGS: Dilated small bowel centrally measuring up to 4.2 cm is similar to 10/22/2022. No acute osseous abnormality.Visualized lungs are unremarkable.No abnormal calcifications. Spinal stimulator. IMPRESSION: Dilated small bowel similar to 10/22/2022. Conclusions/Impression: Stage III MILLA may be due to hypovolemia complicated by ATN Proteinuria -No NSAIDs Hypernatremia -Continue PPN Hypokalemia -Replete potassium prn Metabolic Alkalosis -Resolved Hypophosphatemia -Replete PO4 PreDM A1C 6 -NPO at this time -Continue PPN -RISS prn Ileal obstruction sp surgery 01-25-23 -NPO -Follow up with surgery
[2022-10-29 05:13] LABS: Phosphorus 2.1 mg/dL (2.5-4.9)
[2022-10-29] MEDS: LEVOTHYROXINE SOD 0.075 MG TAB PO SCH (06:19)
[2022-10-29] MEDS: MUPIROCIN 2% OINT 22GM TUBE TOP SCH ×2 (09:00→20:17)
[2022-10-29] MEDS ORDERED: POTASSIUM PHOS IN 0.9 % NACL 15 MMOL/250 ML BAG IV ONE (09:00)
[2022-10-29] MEDS: HYDROMORPHONE HCL 1 MG/ML INJ IV PRN ×4 (09:02→20:16)
[2022-10-29] MEDS: CLOPIDOGREL 75 MG TABLET PO SCH (09:08)
[2022-10-29] MEDS: ASPIRIN 81 MG CHEWABLE TABLET PO SCH (09:08)
[2022-10-29] MEDS: PANTOPRAZOLE 40 MG INJ IVP SCH (09:09)
[2022-10-29] MEDS: CEFTRIAXONE 1,000 MG in NA CHLORIDE 0.9% 50 ML IVPB SCH (09:09)
[2022-10-29] MEDS: ENOXAPARIN 40 MG/0.4 ML SQ SCH (09:10)
--- NOTE | 2022-10-29 09:38 | P.PN ---
Date of Service: 10/29/22 Subjective: Patient with no complaints. Patient is passing gas and tolerating sips of clear liquids. Objective: Vitals stable, afebrile Abdomen: Soft, nondistended, positive bowel sounds with dressing clean dry and intact Assessment: Status post exploratory laparotomy and lysis of adhesions Plan: DC NG tube. Clear liquid diet. Patient did have urinary retention requiring the Gunn to be placed back last night. Continue PT, DVT prophylaxis and incentive spirometry as ordered. Slowly advance diet as tolerated. CC:
[2022-10-29] MEDS: RIVASTIGMINE 4.6 MG/24 HR PATCH TD SCH (10:02)
[2022-10-29] MEDS: ONDANSETRON 4 MG/2 ML VIAL IV PRN (15:09)
[2022-10-29] MEDS: AA 5%/D20W/ELECTROLYTES-TPN 2,000 ML, Lipids 20% 250 ML with MULTIVITAMINS INJ 10 ML IV SCH ×3 (16:55)
--- NOTE | 2022-10-29 17:05 | P.PN ---
Subjective Date of Service: 10/29/22 Chief Complaint: UTI, Nausea/Vomitting Patient seen postop day 4 Patient seen participating in physical therapy. NG tube removed. Patient had urinary retention after removal of Gunn catheter. Gunn catheter was reinserted last night Physical Examination - Vital Signs Temperature: 98.0 F Blood Pressure: 127/62 Pulse: 72 Respirations: 18 Pulse Ox (%): 98 Assessment And Plan - Plan Physical Exam: General: Alert, Oriented x1 (self only), NAD. HEENT: Sclerae nonicteric Pulm: Clear to auscultation bilaterally, Normal air movement CV: No edema, Regular rate/rhythm Abd: Nondistended, mild tenderness, hypoactive BS. Neurological: Normal speech, generalized weakness. No focal motor deficit. vitals reviewed Problem List: UTI SBO MILLA, suspect prerenal Cholelithiasis Generalized weakness h/o CVA hypothyroidism HLD moderate-severe dementia UTI, 2nd episode this year. SIRS 1/4: tachycardia. Did not meet criteria for sepsis. urine cx: e.coli-pansensitive Continue Rocephin. Patient to complete 5 days of treatment. tylenol as needed for fever SBO CT with likely ileal obstruction / ileus vs mech obstruction Seen by general surgery Dr. Gottlieb. Exploratory laparotomy done, internal hernia noted, lysis of adhesions done to free up the small bowel. No bowel resection NG tube removed and patient started on clear liquids today Continue PPN until oral intake improved Right upper quadrant ultrasound demonstrated cholelithiasis. MILLA suspect prerenal, pt with minimal po intake and n/v over 4 days MILLA resolved Continue TPN Nephrology Dr. Ramos is following Monitor and replete electrolytes. Replete phosphorus. Dementia sundowns quite frequently per family Continue PT Monitor Haldol as needed for agitation. Urinary retention Gunn catheter reinserted for persistent urinary retention. VTE: heparin SQ Code: full Dispo: Skilled rehab.
[2022-10-29] MEDS: ATORVASTATIN 10 MG TAB PO SCH (20:16)
--- NOTE | 2022-10-29 23:24 | P.PN ---
Date of Service: 10/29/22 Vital Signs Temp Pulse Resp BP Pulse Ox 97.9 F 80 18 131/66 98 10/29/22 20:00 10/29/22 20:00 10/29/22 20:46 10/29/22 20:00 10/29/22 20:46 Medications Aspirin (Aspirin 81 Mg Chewable Tablet) 81 mg PO DAILY [facility] Last Admin: 10/29/22 09:08 Dose: 81 mg Atorvastatin Calcium (Atorvastatin 10 Mg Tab) 10 mg PO BEDTIME [facility] Last Admin: 10/29/22 20:16 Dose: 10 mg Clopidogrel Bisulfate (Clopidogrel 75 Mg Tablet) 75 mg PO DAILY [facility] Last Admin: 10/29/22 09:08 Dose: 75 mg Enoxaparin Sodium (Enoxaparin 40 Mg/0.4 Ml) 40 mg SQ DAILY [facility] Last Admin: 10/29/22 09:10 Dose: 40 mg Hydralazine HCl (Hydralazine Hcl 20 Mg/Ml Vial) 10 mg IV Q6HP PRN PRN Reason: Titrate to SBP (MUST DEFINE) Hydromorphone HCl (Hydromorphone Hcl 1 Mg/Ml Inj) 1 mg IV Q2HP PRN PRN Reason: Pain scale 5-7 (Moderate) Last Admin: 10/29/22 20:16 Dose: 1 mg Ceftriaxone Sodium 1,000 mg/ (Sodium Chloride) 50 mls @ 100 mls/hr IVPB DAILY [facility]; Protocol Last Admin: 10/29/22 09:09 Dose: 50 mls Multivitamins 10 ml/ Amino Acids/Electrolytes/ Fat Emulsion Intravenous 2,260 mls @ 70 mls/hr IV M,W,F [facility] Last Admin: 10/29/22 16:55 Dose: 2,260 mls Dextrose (D10w 500 Ml Ivpb) 500 mls @ 0 mls/hr IV .Q0M [facility] Last Admin: 10/27/22 15:43 Dose: 500 mls Amino Acids/Electrolytes (Clinimix E 5%-20% Solution) 2,000 mls @ 70 mls/hr IV [id number]@1700 [facility] Last Admin: 10/28/22 17:51 Dose: 2,000 mls Levothyroxine Sodium (Levothyroxine Sod 0.075 Mg Tab) [facility] Last Admin: 10/29/22 06:19 Dose: 0.15 mg Mupirocin (Mupirocin 2% Oint 22gm Tube) 1 appl TOP BID [facility] Stop: 10/30/22 21:01 Last Admin: 10/29/22 20:17 Dose: 1 micheline Ondansetron HCl (Ondansetron 4 Mg/2 Ml Vial) 4 mg IV Q6HP PRN PRN Reason: NAUSEA / VOMITING Last Admin: 10/29/22 15:09 Dose: 4 mg Pantoprazole Sodium (Pantoprazole 40 Mg Inj) 40 mg IVP DAILY [facility] Last Admin: 10/29/22 09:09 Dose: 40 mg Phenol (Phenol 1.4% Oral [place] 180ml) 2 appl MM Q4H PRN PRN Reason: SORE THROAT Last Admin: 10/25/22 10:44 Dose: 2 appl Rivastigmine (Rivastigmine 4.6 Mg/24 Hr Patch) 4.6 mg TD DAILY [facility] Last Admin: 10/29/22 10:02 Dose: 4.6 mg Sodium Chloride (Flush Normal Saline 10 Ml) 10 ml IV BID [facility] Last Admin: 10/29/22 20:17 Dose: 10 ml Sodium Chloride (Sodium Chloride 0.9% 10ml Inj) 10 ml IV UD PRN PRN Reason: Diluant Microbiology Results 10/22/22 13:05 Clean Catch Urine [place] Count - Final >100,000 CFU/ML. 10/22/22 13:05 Clean Catch Urine - Final Escherichia Coli Assessment/ Plan: Nephrology No dyspnea No chest pain No acute events overnight Vitals, medications, blood work and imaging reviewed in the chart. General: In no apparent distress, Cooperative HEENT: Atraumatic Neck: Supple Respiratory: Clear to auscultation bilaterally Cardiovascular: No edema, Regular rate/rhythm Gastrointestinal: Distended, Tenderness Musculoskeletal: No clubbing, No contractures Integumentary: No rashes, No cyanosis Neurological: Normal speech Blood work reviewed in the chart. Imagings Data: EXAM DESCRIPTION: CT - Abdomen Pelvis Wo Contrast - 10/22/2022 1:34 pm CLINICAL HISTORY: Abdominal pain /vomiting COMPARISON: None TECHNIQUE: Computed axial tomography of the abdomen and pelvis was obtained. IV and oral contrast were not requested. All CT scans are performed using dose optimization technique as appropriate and may include automated exposure control or mA/KV adjustment according to patient size. FINDINGS: The evaluation of solid organs, vessels and bowel is limited secondary to the lack of contrast administration. The liver, spleen, pancreas, adrenals and left kidney appear grossly normal. 5 millimeter calculus left kidney. Hydronephrosis. Cholelithiasis. Gallbladder wall thickening is seen. Moderate dilatation of jejunum and part of ileum. Distal ileum is decompressed. No free air. Neurostimulator device IMPRESSION: Ileal obstruction Cholelithiasis EXAM DESCRIPTION: US - Abdomen Exam Limited - 10/23/2022 10:02 am CLINICAL HISTORY: cholelithiasis, n/v, eval CBD/GB COMPARISON: <Comparisons> TECHNIQUE: Sonographic grayscale and color flow images of the right upper quadrant were obtained. FINDINGS: Exam is technically limited by over shadowing bowel gas. The gallbladder demonstrates small echogenic definite explicitly shadowing, gallstones layering dependently along the body and neck of the gallbladder. No pericholecystic fluid or gallbladder wall thickening. The common bile duct is normal measuring 3 mm. The liver demonstrates no findings of intrahepatic biliary dilatation. IMPRESSION: Cholelithiasis. No sonographic evidence of acute cholecystitis. No intra or extrahepatic biliary ductal dilation. EXAM DESCRIPTION: RAD - Abdomen 1 View (KUB) - 10/23/2022 6:55 am CLINICAL HISTORY: ileus COMPARISON: No comparisonsAbdomen Pelvis Wo Contrast dated 10/22/2022 FINDINGS: Dilated small bowel centrally measuring up to 4.2 cm is similar to 10/22/2022. No acute osseous abnormality.Visualized lungs are unremarkable.No abnormal calcifications. Spinal stimulator. IMPRESSION: Dilated small bowel similar to 10/22/2022. Conclusions/Impression: Stage III MILLA may be due to hypovolemia Proteinuria -No NSAIDs -Maintain hydration Hypernatremia -Continue PPN Hypokalemia -Replete potassium prn Metabolic Alkalosis -Resolved Hypophosphatemia -Replete PO4 PreDM A1C 6 -RISS prn Ileal obstruction sp surgery 01-25-23 -Advance diet as tolerated -Follow up with surgery
[2022-10-30] MEDS: HYDROMORPHONE HCL 1 MG/ML INJ IV PRN ×4 (03:45→20:01)
[2022-10-30 04:18] LABS: Magnesium 1.8 mg/dL (1.6-2.4); Phosphorus 2.1 mg/dL (2.5-4.9); Potassium 4.3 mmol/L (3.5-5.1)
[2022-10-30] MEDS: LEVOTHYROXINE SOD 0.075 MG TAB PO SCH (05:52)
[2022-10-30] MEDS: POTASS/SODIUM PHOSPHATE 1 PKT POWD.PACK PO SCH ×5 (05:53→16:01)
--- NOTE | 2022-10-30 09:41 | PN ---
Date of Progress Note: 10/30/2022 Subjective: The patient is awake, alert. No complaint. Passing gas. Objective: Vital Signs: Stable, afebrile. Abdomen: Benign. Wound is clean dry and intact. Laboratory Data: Reviewed. Assessment: Status post exploratory laparotomy for small bowel obstruction. Recommendations: We will advance diet to full liquids and decrease TPN. Discussed with hospitalist regarding care of the Gunn and discharge planning is already in progress. /MODL Voice ID: [id number] Report ID: [id number]
[2022-10-30] MEDS: ASPIRIN 81 MG CHEWABLE TABLET PO SCH (09:44)
[2022-10-30] MEDS: RIVASTIGMINE 4.6 MG/24 HR PATCH TD SCH (09:44)
[2022-10-30] MEDS: CLOPIDOGREL 75 MG TABLET PO SCH (09:45)
[2022-10-30] MEDS: CEFTRIAXONE 1,000 MG in NA CHLORIDE 0.9% 50 ML IVPB SCH (09:45)
[2022-10-30] MEDS: ENOXAPARIN 40 MG/0.4 ML SQ SCH (09:45)
[2022-10-30] MEDS: PANTOPRAZOLE 40 MG INJ IVP SCH (09:46)
[2022-10-30] MEDS: MUPIROCIN 2% OINT 22GM TUBE TOP SCH ×2 (10:32→20:02)
--- NOTE | 2022-10-30 14:49 | P.PN ---
Subjective Date of Service: 10/30/22 Chief Complaint: UTI, Nausea/Vomitting Patient seen postop day 5 Patient seen participating in physical therapy. She is awake and interactive She is tolerating clear liquid Gunn catheter is in place. Physical Examination - Vital Signs Temperature: 98.9 F Blood Pressure: 117/58 Pulse: 80 Respirations: 17 Pulse Ox (%): 98 Assessment And Plan - Plan Physical Exam: General: Alert, Oriented x1 (self only), NAD. HEENT: Sclerae nonicteric Pulm: Clear to auscultation bilaterally, Normal air movement CV: No edema, Regular rate/rhythm Abd: Nondistended, mild tenderness, hypoactive BS. Neurological: Normal speech, generalized weakness. No focal motor deficit. vitals reviewed Problem List: UTI SBO MILLA, suspect prerenal Cholelithiasis Generalized weakness h/o CVA hypothyroidism HLD moderate-severe dementia UTI, 2nd episode this year. SIRS 1/4: tachycardia. Did not meet criteria for sepsis. urine cx: e.coli-pansensitive Continue Rocephin. Patient to complete 5 days of treatment. tylenol as needed for fever SBO CT with likely ileal obstruction / ileus vs mech obstruction Seen by general surgery Dr. Gottlieb. Exploratory laparotomy done, internal hernia noted, lysis of adhesions done to free up the small bowel. No bowel resection NG tube removed and patient started on clear liquids today Advance to full liquid per surgery. Weaning down the PPN. Right upper quadrant ultrasound demonstrated cholelithiasis. MILLA suspect prerenal, pt with minimal po intake and n/v over 4 days MILLA resolved Feeding as tolerated. Encourage oral hydration Nephrology Dr. Ramos is following Monitor and replete electrolytes. Dementia sundowns quite frequently per family Continue PT Monitor Haldol as needed for agitation. Urinary retention Gunn catheter reinserted for persistent urinary retention. Start Flomax. Voiding trial within 24 hours. VTE: heparin SQ Code: full Dispo: Skilled rehab.
[2022-10-30] MEDS: ONDANSETRON 4 MG/2 ML VIAL IV PRN (16:01)
[2022-10-30] MEDS: AA 5%/D20W/ELECTROLYTES-TPN 2,000 ML IV SCH (17:00)
[2022-10-30] MEDS: ATORVASTATIN 10 MG TAB PO SCH (20:01)
[2022-10-30] MEDS: TAMSULOSIN 0.4 MG SR CAP PO SCH (20:01)
[2022-10-31] MEDS: HYDROMORPHONE HCL 1 MG/ML INJ IV PRN ×3 (00:17→17:11)
[2022-10-31] MEDS: ONDANSETRON 4 MG/2 ML VIAL IV PRN (00:17)
[2022-10-31] MEDS: LEVOTHYROXINE SOD 0.075 MG TAB PO SCH (05:29)
[2022-10-31] MEDS: ACETAMINOPHEN 325 MG TABLET PO PRN (05:29)
[2022-10-31 05:34] LABS: Albumin 2.4 g/dL (3.4-5.0); Bilirubin Total 0.4 mg/dL (0.2-1.0); Potassium 4.2 mmol/L (3.5-5.1)
[2022-10-31] MEDS ORDERED: DRISDOL (VITAMIN D=ERGOCALCIFEROL) 50000 UNIT CAP PO SCH (09:00)
[2022-10-31] MEDS: CLOPIDOGREL 75 MG TABLET PO SCH (10:12)
[2022-10-31] MEDS: ASPIRIN 81 MG CHEWABLE TABLET PO SCH (10:13)
[2022-10-31] MEDS: ENOXAPARIN 40 MG/0.4 ML SQ SCH (10:13)
[2022-10-31] MEDS: RIVASTIGMINE 4.6 MG/24 HR PATCH TD SCH (10:18)
[2022-10-31] MEDS: PANTOPRAZOLE 40 MG INJ IVP SCH (10:20)
--- NOTE | 2022-10-31 10:51 | P.PN ---
Date of Service: 10/31/22 Subjective: Patient with no complaints. Patient is passing gas and tolerating full liquid diet Objective: Vitals stable, afebrile Abdomen: Soft, nondistended, positive bowel sounds with dressing clean dry and intact Assessment: Status post exploratory laparotomy and lysis of adhesions Plan: DC TPN. Advance to regular diet. Continue physical therapy, incentive spirometry and DVT prophylaxis. Discharge planning. CC:
[2022-10-31] MEDS ORDERED: SODIUM CHLORIDE 0.9% 10ML INJ IV PRN (13:18)
[2022-10-31] MEDS ORDERED: MAGNESIUM HYDROXIDE 8% 30 ML PO PRN (16:35)
--- NOTE | 2022-10-31 16:47 | P.PN ---
Subjective Date of Service: 10/31/22 Chief Complaint: UTI, Nausea/Vomitting Patient seen postop day 6. Family reports patient has constipation. She is participating in physical therapy She is awake and interactive She has tolerated regular diet. Gunn catheter is in place. Physical Examination - Vital Signs Temperature: 99.5 F Blood Pressure: 141/71 Pulse: 66 Respirations: 17 Pulse Ox (%): 97 Assessment And Plan - Plan Physical Exam: General: Alert, Oriented x1 (self only), NAD. HEENT: Sclerae nonicteric Pulm: Clear to auscultation bilaterally, Normal air movement CV: No edema, Regular rate/rhythm Abd: Nondistended, mild tenderness, hypoactive BS. Neurological: Normal speech, generalized weakness. No focal motor deficit. vitals reviewed Problem List: UTI SBO MILLA, suspect prerenal Cholelithiasis Generalized weakness h/o CVA hypothyroidism HLD moderate-severe dementia UTI, 2nd episode this year. SIRS 1/4: tachycardia. Did not meet criteria for sepsis. urine cx: e.coli-pansensitive Continue Rocephin. Patient completed 5 days of treatment. SBO CT with likely ileal obstruction / ileus vs mech obstruction Seen by general surgery Dr. Gottlibe. Exploratory laparotomy done, internal hernia noted, lysis of adhesions done to free up the small bowel. No bowel resection Clinically improved. Patient is tolerating solid diet. PPN discontinued. Cholelithiasis Outpatient follow-up. MILLA suspect prerenal, pt with minimal po intake and n/v over 4 days MILLA resolved Feeding as tolerated. Encourage oral hydration Nephrology Dr. Ramos is following Monitor and replete electrolytes. Dementia No agitation Continue PT Acute urinary retention Gunn catheter reinserted for persistent urinary retention. Patient started on Flomax. DC Gunn catheter for voiding trial today. Functional constipation Trial of milk of magnesia VTE: heparin SQ Code: full Dispo: Skilled rehab.
[2022-10-31] MEDS: ATORVASTATIN 10 MG TAB PO SCH (20:35)
[2022-10-31] MEDS: TAMSULOSIN 0.4 MG SR CAP PO SCH (20:36)
[2022-11-01] MEDS: LEVOTHYROXINE SOD 0.075 MG TAB PO SCH (06:12)
[2022-11-01] MEDS: PANTOPRAZOLE 40MG TABLET PO SCH (06:13)
[2022-11-01 06:57] LABS: Absolute Lymphocytes (CBC) 1.6 K/uL (0.7-4.9); Hematocrit 33.1 % (36.0-45.0); Lymphocytes % 19.2 % (15.3-44.8); MCV 83.8 fL (80-100); MPV 9.5 fL (7.6-11.3); RBC Red Blood Cell Count 3.94 M/uL (3.86-4.86)
[2022-11-01] MEDS: ENOXAPARIN 40 MG/0.4 ML SQ SCH (09:32)
[2022-11-01] MEDS: RIVASTIGMINE 4.6 MG/24 HR PATCH TD SCH (09:32)
[2022-11-01] MEDS: ASPIRIN 81 MG CHEWABLE TABLET PO SCH (09:32)
[2022-11-01] MEDS: CLOPIDOGREL 75 MG TABLET PO SCH (09:33)
[2022-11-01] MEDS: ACETAMINOPHEN 325 MG TABLET PO PRN (09:45)
[2022-11-01] MEDS ORDERED: POLYETHYL GLY 3350 17 GM/DOSE PO PRN (11:20)
[2022-11-01] MEDS ORDERED: BISACODYL E.C. 5 MG TAB PO ONE (11:20)
--- NOTE | 2022-11-01 13:49 | PN ---
Date of Progress Note: 11/01/2022 Subjective: The patient is awake, alert, passing gas. No bowel movement. Tolerating a little bit o f her diet. Objective: Vital Signs: Stable, afebrile. Abdomen: Benign. Assessment: Status post exploratory laparotomy for small bowel obstruction. Recommendations: High-fiber diet, stool softeners, MiraLAX, and Dulcolax p.o. Work with Physical Th erapy, incentive spirometry, and discharge planning is in progress. /MODL Voice ID: [id number] Report ID: [id number]
[2022-11-01] MEDS: DOCUSATE NA 100 MG CAP PO SCH (21:28)
[2022-11-01] MEDS: TAMSULOSIN 0.4 MG SR CAP PO SCH (21:29)
[2022-11-01] MEDS: ATORVASTATIN 10 MG TAB PO SCH (21:29)
--- NOTE | 2022-11-01 21:43 | P.PN ---
Date of Service: 11/01/22 Vital Signs Temp Pulse Resp BP Pulse Ox 99.5 F 85 16 118/65 96 11/01/22 20:00 11/01/22 20:00 11/01/22 20:00 11/01/22 20:00 11/01/22 20:00 Medications Acetaminophen (Acetaminophen 325 Mg Tablet) 650 mg PO Q6H PRN PRN Reason: Pain scale 2-4 (Mild) Last Admin: 11/01/22 09:45 Dose: 650 mg Aspirin (Aspirin 81 Mg Chewable Tablet) 81 mg PO DAILY [facility] Last Admin: 11/01/22 09:32 Dose: 81 mg Atorvastatin Calcium (Atorvastatin 10 Mg Tab) 10 mg PO BEDTIME [facility] Last Admin: 11/01/22 21:29 Dose: 10 mg Clopidogrel Bisulfate (Clopidogrel 75 Mg Tablet) 75 mg PO DAILY [facility] Last Admin: 11/01/22 09:33 Dose: 75 mg Docusate Sodium (Docusate Na 100 Mg Cap) 100 mg PO BID [facility] Last Admin: 11/01/22 21:28 Dose: 100 mg Enoxaparin Sodium (Enoxaparin 40 Mg/0.4 Ml) 40 mg SQ DAILY [facility] Last Admin: 11/01/22 09:32 Dose: 40 mg Ergocalciferol (Drisdol (Vitamin D=Ergocalciferol) 24349 Unit Cap) 50,000 unit PO Q7D [facility] Last Admin: 10/31/22 10:19 Dose: 50,000 unit Hydralazine HCl (Hydralazine Hcl 20 Mg/Ml Vial) 10 mg IV Q6HP PRN PRN Reason: Titrate to SBP (MUST DEFINE) Hydromorphone HCl (Hydromorphone Hcl 1 Mg/Ml Inj) 1 mg IV Q2HP PRN PRN Reason: Pain scale 8-10 (Severe) Last Admin: 10/31/22 17:11 Dose: 1 mg Dextrose (D10w 500 Ml Ivpb) 500 mls @ 0 mls/hr IV .Q0M [facility] Last Admin: 10/27/22 15:43 Dose: 500 mls Levothyroxine Sodium (Levothyroxine Sod 0.075 Mg Tab) 0.15 mg PO DAILYAC [facility] Last Admin: 11/01/22 06:12 Dose: 0.15 mg Magnesium Hydroxide (Magnesium Hydroxide 8% 30 Ml) 30 ml PO BID PRN PRN Reason: CONSTIPATION Last Admin: 10/31/22 17:24 Dose: 30 ml Ondansetron HCl (Ondansetron 4 Mg/2 Ml Vial) 4 mg IV Q6HP PRN PRN Reason: NAUSEA / VOMITING Last Admin: 10/31/22 00:17 Dose: 4 mg Pantoprazole Sodium (Pantoprazole 40mg Tablet) 40 mg PO DAILYAC [facility] Last Admin: 11/01/22 06:13 Dose: 40 mg Phenol (Phenol 1.4% Oral [place] 180ml) 2 appl MM Q4H PRN PRN Reason: SORE THROAT Last Admin: 10/25/22 10:44 Dose: 2 appl Polyethylene Glycol (Polyethyl Gly 3350 17 Gm/Dose) 17 gm PO DAILY PRN PRN Reason: CONSTIPATION Rivastigmine (Rivastigmine 4.6 Mg/24 Hr Patch) 4.6 mg TD DAILY [facility] Last Admin: 11/01/22 09:32 Dose: 4.6 mg Sodium Chloride (Flush Normal Saline 10 Ml) 10 ml IV BID [facility] Last Admin: 11/01/22 21:29 Dose: 10 ml Tamsulosin HCl (Tamsulosin 0.4 Mg Sr Cap) 0.4 mg PO BEDTIME [facility] Last Admin: 11/01/22 21:29 Dose: 0.4 mg Microbiology Results 10/22/22 13:05 Clean Catch Urine [place] Count - Final >100,000 CFU/ML. 10/22/22 13:05 Clean Catch Urine - Final Escherichia Coli Assessment/ Plan: Nephrology No dyspnea No chest pain -BM Urinary retention sp gallegos No acute events overnight Vitals, medications, blood work and imaging reviewed in the chart. General: In no apparent distress, Cooperative HEENT: Atraumatic Neck: Supple Respiratory: Clear to auscultation bilaterally Cardiovascular: No edema, Regular rate/rhythm Gastrointestinal: Distended, Tenderness Musculoskeletal: No clubbing, No contractures Integumentary: No rashes, No cyanosis Neurological: Normal speech Blood work reviewed in the chart. Imagings Data: EXAM DESCRIPTION: CT - Abdomen Pelvis Wo Contrast - 10/22/2022 1:34 pm CLINICAL HISTORY: Abdominal pain /vomiting COMPARISON: None TECHNIQUE: Computed axial tomography of the abdomen and pelvis was obtained. IV and oral contrast were not requested. All CT scans are performed using dose optimization technique as appropriate and may include automated exposure control or mA/KV adjustment according to patient size. FINDINGS: The evaluation of solid organs, vessels and bowel is limited secondary to the lack of contrast administration. The liver, spleen, pancreas, adrenals and left kidney appear grossly normal. 5 millimeter calculus left kidney. Hydronephrosis. Cholelithiasis. Gallbladder wall thickening is seen. Moderate dilatation of jejunum and part of ileum. Distal ileum is decompressed. No free air. Neurostimulator device IMPRESSION: Ileal obstruction Cholelithiasis EXAM DESCRIPTION: US - Abdomen Exam Limited - 10/23/2022 10:02 am CLINICAL HISTORY: cholelithiasis, n/v, eval CBD/GB COMPARISON: <Comparisons> TECHNIQUE: Sonographic grayscale and color flow images of the right upper quadrant were obtained. FINDINGS: Exam is technically limited by over shadowing bowel gas. The gallbladder demonstrates small echogenic definite explicitly shadowing, gallstones layering dependently along the body and neck of the gallbladder. No pericholecystic fluid or gallbladder wall thickening. The common bile duct is normal measuring 3 mm. The liver demonstrates no findings of intrahepatic biliary dilatation. IMPRESSION: Cholelithiasis. No sonographic evidence of acute cholecystitis. No intra or extrahepatic biliary ductal dilation. EXAM DESCRIPTION: RAD - Abdomen 1 View (KUB) - 10/23/2022 6:55 am CLINICAL HISTORY: ileus COMPARISON: No comparisonsAbdomen Pelvis Wo Contrast dated 10/22/2022 FINDINGS: Dilated small bowel centrally measuring up to 4.2 cm is similar to 10/22/2022. No acute osseous abnormality.Visualized lungs are unremarkable.No abnormal calcifications. Spinal stimulator. IMPRESSION: Dilated small bowel similar to 10/22/2022. Conclusions/Impression: Stage III MILLA may be due to hypovolemia, resolved Proteinuria -No NSAIDs -Maintain hydration Hypokalemia -Replete potassium prn Hypophosphatemia -Replete PO4 prn -Encourage nutrition PreDM A1C 6 -RISS prn Moderate malnutrition with decreased functinal ability Hypoalbuminemia -Advance diet as tolerated -Consider protein supplementation Anemia in chronic illness -Monitor H&H Ileal obstruction sp surgery 01-25-23 -Advance diet as tolerated -Follow up with surgery
--- NOTE | 2022-11-01 22:33 | P.PN ---
Date of Service: 11/02/22 Subjective: some flatus, no BM Able to tolerate diet Ambulatory no significant changes overnight ROS: 10 point ROS as noted above, otherwise negative Physical Exam: General: Alert, Oriented, NAD HEENT: EOMI, Sclerae nonicteric Pulm: Clear to auscultation bilaterally, Normal air movement CV: No edema, Regular rate/rhythm Abd: nontender, no distention Neurological: Normal speech, generalized weakness vitals reviewed Problem List: UTI SBO now s/p ex-lap/ lysis of adhesions MILLA, suspect prerenal Cholelithiasis Generalized weakness h/o CVA hypothyroidism HLD moderate-severe dementia UTI, 2nd episode this year, previously did not have frequent UTIs SIRS 08/25: tachycardia urine cx: e.coli CT with likely ileal obstruction / ileus vs mech obstruction general surgery - Bull consulted - Exploratory laparotomy done, internal hernia noted, lysis of adhesions done to free up the small bowel. No bowel resection tolerating High fiber diet PPN discontinued monitor UOP Gunn Catheter reconnected - have tried to DC multiple times but is unable to urinate without assistance Continue stool softener/laxative nephrology - Dr. Ramos consulted Stage 3 MILLA due to hypovolemia complicated by ATN Kidney functions improved (creatinine dropped from 4 to 1.3) MILLA resolved Replete electrolytes as needed Monitor H&H Continue PT quite frequently per family VTE: heparin SQ Code: full Dispo: SNF, ~1-2 days
[2022-11-02 05:00] LABS: Absolute Lymphocytes (CBC) 1.5 K/uL (0.7-4.9); Hematocrit 30.3 % (36.0-45.0); Lymphocytes % 21.7 % (15.3-44.8); MCV 83.2 fL (80-100); MPV 9.7 fL (7.6-11.3); RBC Red Blood Cell Count 3.64 M/uL (3.86-4.86)
[2022-11-02 05:09] LABS: Albumin 2.4 g/dL (3.4-5.0); Bilirubin Total 0.5 mg/dL (0.2-1.0); Magnesium 1.9 mg/dL (1.6-2.4); Phosphorus 2.5 mg/dL (2.5-4.9); Potassium 3.6 mmol/L (3.5-5.1); Protein, Total 4.9 g/dL (6.4-8.2)
[2022-11-02] MEDS: PANTOPRAZOLE 40MG TABLET PO SCH (06:12)
[2022-11-02] MEDS: LEVOTHYROXINE SOD 0.075 MG TAB PO SCH (06:12)
[2022-11-02] MEDS: ASPIRIN 81 MG CHEWABLE TABLET PO SCH (09:10)
[2022-11-02] MEDS: CLOPIDOGREL 75 MG TABLET PO SCH (09:10)
[2022-11-02] MEDS: POTASSIUM PHOS IN 0.9 % NACL 15 MMOL/250 ML BAG IV ONE ×2 (09:10→09:12)
[2022-11-02] MEDS: DOCUSATE NA 100 MG CAP PO SCH ×2 (09:10→20:15)
[2022-11-02] MEDS: RIVASTIGMINE 4.6 MG/24 HR PATCH TD SCH (09:11)
[2022-11-02] MEDS: ENOXAPARIN 40 MG/0.4 ML SQ SCH (09:12)
[2022-11-02] MEDS: ACETAMINOPHEN 325 MG TABLET PO PRN (13:33)
--- NOTE | 2022-11-02 15:37 | PN ---
Date of Progress Note: 11/02/2022 Subjective: Patient is awake, alert, tolerating diet, ambulating. No bowel movements and passing ga s. Objective: Vital Signs: Stable, afebrile. Abdomen: Benign. Assessment: Status post exploratory laparotomy for small-bowel obstruction. Recommendation: Discharge planning in progress. Continue present care. Patient is clinically doing well. /MODL Voice ID: [id number] Report ID: [id number]
[2022-11-02] MEDS: ATORVASTATIN 10 MG TAB PO SCH (20:15)
[2022-11-02] MEDS: TAMSULOSIN 0.4 MG SR CAP PO SCH (20:15)
[2022-11-02] MEDS: ONDANSETRON 4 MG/2 ML VIAL IV PRN (20:16)
--- NOTE | 2022-11-02 20:28 | P.PN ---
Date of Service: 11/02/22 Vital Signs Temp Pulse Resp BP Pulse Ox 96.9 F 82 17 124/69 94 11/02/22 20:00 11/02/22 20:00 11/02/22 20:00 11/02/22 20:00 11/02/22 20:00 Medications Acetaminophen (Acetaminophen 325 Mg Tablet) 650 mg PO Q6H PRN PRN Reason: Pain scale 2-4 (Mild) Last Admin: 11/02/22 13:33 Dose: 650 mg Aspirin (Aspirin 81 Mg Chewable Tablet) 81 mg PO DAILY [facility] Last Admin: 11/02/22 09:10 Dose: 81 mg Atorvastatin Calcium (Atorvastatin 10 Mg Tab) 10 mg PO BEDTIME [facility] Last Admin: 11/02/22 20:15 Dose: 10 mg Clopidogrel Bisulfate (Clopidogrel 75 Mg Tablet) 75 mg PO DAILY [facility] Last Admin: 11/02/22 09:10 Dose: 75 mg Docusate Sodium (Docusate Na 100 Mg Cap) 100 mg PO BID [facility] Last Admin: 11/02/22 20:15 Dose: 100 mg Enoxaparin Sodium (Enoxaparin 40 Mg/0.4 Ml) 40 mg SQ DAILY [facility] Last Admin: 11/02/22 09:12 Dose: 40 mg Ergocalciferol (Drisdol (Vitamin D=Ergocalciferol) 70019 Unit Cap) 50,000 unit PO Q7D [facility] Last Admin: 10/31/22 10:19 Dose: 50,000 unit Hydralazine HCl (Hydralazine Hcl 20 Mg/Ml Vial) 10 mg IV Q6HP PRN PRN Reason: Titrate to SBP (MUST DEFINE) Dextrose (D10w 500 Ml Ivpb) 500 mls @ 0 mls/hr IV .Q0M [facility] Last Admin: 10/27/22 15:43 Dose: 500 mls Levothyroxine Sodium (Levothyroxine Sod 0.075 Mg Tab) 0.15 mg PO DAILYAC [facility] Last Admin: 11/02/22 06:12 Dose: 0.15 mg Magnesium Hydroxide (Magnesium Hydroxide 8% 30 Ml) 30 ml PO BID PRN PRN Reason: CONSTIPATION Last Admin: 10/31/22 17:24 Dose: 30 ml Ondansetron HCl (Ondansetron 4 Mg/2 Ml Vial) 4 mg IV Q6HP PRN PRN Reason: NAUSEA / VOMITING Last Admin: 11/02/22 20:16 Dose: 4 mg Pantoprazole Sodium (Pantoprazole 40mg Tablet) 40 mg PO DAILYAC [facility] Last Admin: 11/02/22 06:12 Dose: 40 mg Phenol (Phenol 1.4% Oral [place] 180ml) 2 appl MM Q4H PRN PRN Reason: SORE THROAT Last Admin: 10/25/22 10:44 Dose: 2 appl Polyethylene Glycol (Polyethyl Gly 3350 17 Gm/Dose) 17 gm PO DAILY PRN PRN Reason: CONSTIPATION Rivastigmine (Rivastigmine 4.6 Mg/24 Hr Patch) 4.6 mg TD DAILY [facility] Last Admin: 11/02/22 09:11 Dose: 4.6 mg Sodium Chloride (Flush Normal Saline 10 Ml) 10 ml IV BID [facility] Last Admin: 11/02/22 20:16 Dose: 10 ml Tamsulosin HCl (Tamsulosin 0.4 Mg Sr Cap) 0.4 mg PO BEDTIME [facility] Last Admin: 11/02/22 20:15 Dose: 0.4 mg Microbiology Results 10/22/22 13:05 Clean Catch Urine [place] Count - Final >100,000 CFU/ML. 10/22/22 13:05 Clean Catch Urine - Final Escherichia Coli Assessment/ Plan: Nephrology No dyspnea No chest pain Poor oral intake +BM Urinary retention sp gallegos No acute events overnight Vitals, medications, blood work and imaging reviewed in the chart. General: In no apparent distress, Cooperative HEENT: Atraumatic Neck: Supple Respiratory: Clear to auscultation bilaterally Cardiovascular: No edema, Regular rate/rhythm Gastrointestinal: Distended, Tenderness Musculoskeletal: No clubbing, No contractures Integumentary: No rashes, No cyanosis Neurological: Normal speech Blood work reviewed in the chart. Imagings Data: EXAM DESCRIPTION: CT - Abdomen Pelvis Wo Contrast - 10/22/2022 1:34 pm CLINICAL HISTORY: Abdominal pain /vomiting COMPARISON: None TECHNIQUE: Computed axial tomography of the abdomen and pelvis was obtained. IV and oral contrast were not requested. All CT scans are performed using dose optimization technique as appropriate and may include automated exposure control or mA/KV adjustment according to patient size. FINDINGS: The evaluation of solid organs, vessels and bowel is limited secondary to the lack of contrast administration. The liver, spleen, pancreas, adrenals and left kidney appear grossly normal. 5 millimeter calculus left kidney. Hydronephrosis. Cholelithiasis. Gallbladder wall thickening is seen. Moderate dilatation of jejunum and part of ileum. Distal ileum is decompressed. No free air. Neurostimulator device IMPRESSION: Ileal obstruction Cholelithiasis EXAM DESCRIPTION: US - Abdomen Exam Limited - 10/23/2022 10:02 am CLINICAL HISTORY: cholelithiasis, n/v, eval CBD/GB COMPARISON: <Comparisons> TECHNIQUE: Sonographic grayscale and color flow images of the right upper quadrant were obtained. FINDINGS: Exam is technically limited by over shadowing bowel gas. The gallbladder demonstrates small echogenic definite explicitly shadowing, gallstones layering dependently along the body and neck of the gallbladder. No pericholecystic fluid or gallbladder wall thickening. The common bile duct is normal measuring 3 mm. The liver demonstrates no findings of intrahepatic biliary dilatation. IMPRESSION: Cholelithiasis. No sonographic evidence of acute cholecystitis. No intra or extrahepatic biliary ductal dilation. EXAM DESCRIPTION: RAD - Abdomen 1 View (KUB) - 10/23/2022 6:55 am CLINICAL HISTORY: ileus COMPARISON: No comparisonsAbdomen Pelvis Wo Contrast dated 10/22/2022 FINDINGS: Dilated small bowel centrally measuring up to 4.2 cm is similar to 10/22/2022. No acute osseous abnormality.Visualized lungs are unremarkable.No abnormal calcifications. Spinal stimulator. IMPRESSION: Dilated small bowel similar to 10/22/2022. Conclusions/Impression: Stage III MILLA may be due to hypovolemia, resolved Proteinuria -No NSAIDs -Maintain hydration Hypokalemia -Replete potassium prn Hypophosphatemia -Replete PO4 prn -Encourage nutrition PreDM A1C 6 -RISS prn Moderate malnutrition with decreased functinal ability Hypoalbuminemia -Advance diet as tolerated -Consider protein supplementation Anemia in chronic illness -Monitor H&H Ileal obstruction sp surgery 01-25-23 -Advance diet as tolerated -Follow up with surgery
[2022-11-02] MEDS ORDERED: HALOPERIDOL LACT 5 MG/ML INJ IV ONE (20:37)
[2022-11-03 05:25] VITALS: BMI 22.4
[2022-11-03 05:34] LABS: Phosphorus 2.3 mg/dL (2.5-4.9); Potassium 3.7 mmol/L (3.5-5.1)
[2022-11-03] MEDS: PANTOPRAZOLE 40MG TABLET PO SCH (05:59)
[2022-11-03] MEDS: LEVOTHYROXINE SOD 0.075 MG TAB PO SCH (05:59)
[2022-11-03] MEDS: POTASS/SODIUM PHOSPHATE 1 PKT POWD.PACK PO SCH ×3 (06:00→09:38)
--- NOTE | 2022-11-03 07:07 | P.PN ---
Date of Service: 11/03/22 Subjective: tolerating diet ambulating no significant changes overnight ROS: 10 point ROS as noted above, otherwise negative Physical Exam: General: Alert, Oriented, NAD HEENT: EOMI, Sclerae nonicteric Pulm: Clear to auscultation bilaterally, Normal air movement CV: No edema, Regular rate/rhythm Abd: soft, nontender, no distention Neurological: Normal speech, generalized weakness gallegos in place vitals reviewed Problem List: UTI SBO now s/p ex-lap/ lysis of adhesions MILLA, suspect prerenal Cholelithiasis Generalized weakness h/o CVA hypothyroidism HLD moderate-severe dementia; parkinsons urinary retention UTI, 2nd episode this year, previously did not have frequent UTIs SIRS 08/25: tachycardia urine cx: e.coli general surgery - Bull consulted - Exploratory laparotomy done, internal hernia noted, lysis of adhesions done to free up the small bowel. No bowel resection tolerating High fiber diet failed voiding trial at least twice- unclear if sequelae of surgery/meds/parkinsonism, etc flomax continue gallegos, voiding trial in ~1 week, f/u with urology Continue stool softener/laxative nephrology - Dr. Ramos consulted Stage 3 MILLA due to hypovolemia complicated by ATN MILLA resolved Replete electrolytes as needed Monitor H&H Continue PT quite frequently per family uncertain on accurate med list; discussed with nursing to assist in obtaining up-to-date medication list VTE: heparin SQ Code: full Dispo: SNF, ~1-2 days awaiting approvals
[2022-11-03] MEDS ORDERED: POTASSIUM 25 MEQ EFFERV TAB PO ONE (09:00)
[2022-11-03] MEDS ORDERED: ENSURE ENLIVE 237 ML CAN PO SCH (09:00)
[2022-11-03] MEDS: DOCUSATE NA 100 MG CAP PO SCH ×2 (09:38→20:10)
[2022-11-03] MEDS: RIVASTIGMINE 4.6 MG/24 HR PATCH TD SCH (09:38)
[2022-11-03] MEDS: ASPIRIN 81 MG CHEWABLE TABLET PO SCH (09:38)
[2022-11-03] MEDS: ENOXAPARIN 40 MG/0.4 ML SQ SCH (09:38)
[2022-11-03] MEDS: CLOPIDOGREL 75 MG TABLET PO SCH (09:39)
--- NOTE | 2022-11-03 11:43 | PN ---
Date of Progress Note: 11/03/2022 Subjective: The patient is awake, alert. Had a bowel movement yesterday. Objective: Vital Signs: Stable, afebrile. Abdomen: Benign. Assessment: Status post exploratory laparotomy for small bowel obstruction. Recommendations: The patient is cleared from surgery for discharge. Discontinue every other staple. Follow up in my office in 1 week. Call for appointment. /YOLA Voice ID: [id number] Report ID: [id number]
[2022-11-03] MEDS: ENSURE ENLIVE 237 ML CAN PO SCH ×2 (14:00→20:07)
[2022-11-03] MEDS: TAMSULOSIN 0.4 MG SR CAP PO SCH (20:07)
[2022-11-03] MEDS: ATORVASTATIN 10 MG TAB PO SCH (20:07)
[2022-11-03] MEDS ORDERED: POTASS/SODIUM PHOSPHATE 1 PKT POWD.PACK PO ONE (21:23)
--- NOTE | 2022-11-03 21:24 | P.PN ---
Date of Service: 11/03/22 Vital Signs Temp Pulse Resp BP Pulse Ox 99.8 F 82 18 126/73 97 11/03/22 16:00 11/03/22 16:00 11/03/22 16:00 11/03/22 16:00 11/03/22 16:00 Medications Acetaminophen (Acetaminophen 325 Mg Tablet) 650 mg PO Q6H PRN PRN Reason: Pain scale 2-4 (Mild) Last Admin: 11/02/22 13:33 Dose: 650 mg Aspirin (Aspirin 81 Mg Chewable Tablet) 81 mg PO DAILY [facility] Last Admin: 11/03/22 09:38 Dose: 81 mg Atorvastatin Calcium (Atorvastatin 10 Mg Tab) 10 mg PO BEDTIME [facility] Last Admin: 11/03/22 20:07 Dose: 10 mg Clopidogrel Bisulfate (Clopidogrel 75 Mg Tablet) 75 mg PO DAILY [facility] Last Admin: 11/03/22 09:39 Dose: 75 mg Docusate Sodium (Docusate Na 100 Mg Cap) 100 mg PO BID [facility] Last Admin: 11/03/22 20:10 Dose: 100 mg Enoxaparin Sodium (Enoxaparin 40 Mg/0.4 Ml) 40 mg SQ DAILY [facility] Last Admin: 11/03/22 09:38 Dose: 40 mg Ergocalciferol (Drisdol (Vitamin D=Ergocalciferol) 56081 Unit Cap) 50,000 unit PO Q7D [facility] Last Admin: 10/31/22 10:19 Dose: 50,000 unit Hydralazine HCl (Hydralazine Hcl 20 Mg/Ml Vial) 10 mg IV Q6HP PRN PRN Reason: Titrate to SBP (MUST DEFINE) Dextrose (D10w 500 Ml Ivpb) 500 mls @ 0 mls/hr IV .Q0M [facility] Last Admin: 10/27/22 15:43 Dose: 500 mls Levothyroxine Sodium (Levothyroxine Sod 0.075 Mg Tab) 0.15 mg PO DAILYAC [facility] Last Admin: 11/03/22 05:59 Dose: 0.15 mg Magnesium Hydroxide (Magnesium Hydroxide 8% 30 Ml) 30 ml PO BID PRN PRN Reason: CONSTIPATION Last Admin: 10/31/22 17:24 Dose: 30 ml Nutritional Formula (Ensure Enlive 237 Ml Can) 237 ml PO TID [facility] Last Admin: 11/03/22 20:07 Dose: 237 ml Ondansetron HCl (Ondansetron 4 Mg/2 Ml Vial) 4 mg IV Q6HP PRN PRN Reason: NAUSEA / VOMITING Last Admin: 11/02/22 20:16 Dose: 4 mg Pantoprazole Sodium (Pantoprazole 40mg Tablet) 40 mg PO DAILYAC [facility] Last Admin: 11/03/22 05:59 Dose: 40 mg Phenol (Phenol 1.4% Oral [place] 180ml) 2 appl MM Q4H PRN PRN Reason: SORE THROAT Last Admin: 10/25/22 10:44 Dose: 2 appl Polyethylene Glycol (Polyethyl Gly 3350 17 Gm/Dose) 17 gm PO DAILY PRN PRN Reason: CONSTIPATION Rivastigmine (Rivastigmine 4.6 Mg/24 Hr Patch) 4.6 mg TD DAILY [facility] Last Admin: 11/03/22 09:38 Dose: 4.6 mg Sodium Chloride (Flush Normal Saline 10 Ml) 10 ml IV BID [facility] Last Admin: 11/03/22 20:07 Dose: 10 ml Tamsulosin HCl (Tamsulosin 0.4 Mg Sr Cap) 0.4 mg PO BEDTIME [facility] Last Admin: 11/03/22 20:07 Dose: 0.4 mg Microbiology Results 10/22/22 13:05 Clean Catch Urine [place] Count - Final >100,000 CFU/ML. 10/22/22 13:05 Clean Catch Urine - Final Escherichia Coli Assessment/ Plan: Nephrology No dyspnea No chest pain No acute events overnight Vitals, medications, blood work and imaging reviewed in the chart. General: In no apparent distress, Cooperative HEENT: Atraumatic Neck: Supple Respiratory: Clear to auscultation bilaterally Cardiovascular: No edema, Regular rate/rhythm Gastrointestinal: Distended, Tenderness Musculoskeletal: No clubbing, No contractures Integumentary: No rashes, No cyanosis Neurological: Normal speech [place] light Blood work reviewed in the chart. Imagings Data: EXAM DESCRIPTION: CT - Abdomen Pelvis Wo Contrast - 10/22/2022 1:34 pm CLINICAL HISTORY: Abdominal pain /vomiting COMPARISON: None TECHNIQUE: Computed axial tomography of the abdomen and pelvis was obtained. IV and oral contrast were not requested. All CT scans are performed using dose optimization technique as appropriate and may include automated exposure control or mA/KV adjustment according to patient size. FINDINGS: The evaluation of solid organs, vessels and bowel is limited secondary to the lack of contrast administration. The liver, spleen, pancreas, adrenals and left kidney appear grossly normal. 5 millimeter calculus left kidney. Hydronephrosis. Cholelithiasis. Gallbladder wall thickening is seen. Moderate dilatation of jejunum and part of ileum. Distal ileum is decompressed. No free air. Neurostimulator device IMPRESSION: Ileal obstruction Cholelithiasis EXAM DESCRIPTION: US - Abdomen Exam Limited - 10/23/2022 10:02 am CLINICAL HISTORY: cholelithiasis, n/v, eval CBD/GB COMPARISON: <Comparisons> TECHNIQUE: Sonographic grayscale and color flow images of the right upper quadrant were obtained. FINDINGS: Exam is technically limited by over shadowing bowel gas. The gallbladder demonstrates small echogenic definite explicitly shadowing, gallstones layering dependently along the body and neck of the gallbladder. No pericholecystic fluid or gallbladder wall thickening. The common bile duct is normal measuring 3 mm. The liver demonstrates no findings of intrahepatic biliary dilatation. IMPRESSION: Cholelithiasis. No sonographic evidence of acute cholecystitis. No intra or extrahepatic biliary ductal dilation. EXAM DESCRIPTION: RAD - Abdomen 1 View (KUB) - 10/23/2022 6:55 am CLINICAL HISTORY: ileus COMPARISON: No comparisonsAbdomen Pelvis Wo Contrast dated 10/22/2022 FINDINGS: Dilated small bowel centrally measuring up to 4.2 cm is similar to 10/22/2022. No acute osseous abnormality.Visualized lungs are unremarkable.No abnormal calcifications. Spinal stimulator. IMPRESSION: Dilated small bowel similar to 10/22/2022. Conclusions/Impression: Stage III MILLA may be due to hypovolemia, resolved Proteinuria -No NSAIDs -Maintain hydration Hypokalemia -Replete potassium prn Hypophosphatemia -Replete PO4 -Encourage nutrition PreDM A1C 6 -RISS prn Moderate malnutrition with decreased functinal ability Hypoalbuminemia -Advance diet as tolerated -Start protein supplementation Anemia in chronic illness -Monitor H&H Ileal obstruction sp surgery 01-25-23 -Advance diet as tolerated -Follow up with surgery
[2022-11-04 05:29] LABS: Hematocrit 30.5 % (36.0-45.0); MCV 83.7 fL (80-100); MPV 9.4 fL (7.6-11.3); RBC Red Blood Cell Count 3.64 M/uL (3.86-4.86)
[2022-11-04 05:43] LABS: Phosphorus 2.4 mg/dL (2.5-4.9); Potassium 3.4 mmol/L (3.5-5.1)
[2022-11-04] MEDS: POTASS/SODIUM PHOSPHATE 1 PKT POWD.PACK PO SCH ×3 (06:35→09:55)
[2022-11-04] MEDS: LEVOTHYROXINE SOD 0.075 MG TAB PO SCH (06:36)
[2022-11-04] MEDS: PANTOPRAZOLE 40MG TABLET PO SCH (06:36)
--- NOTE | 2022-11-04 07:10 | P.PN ---
Date of Service: 11/04/22 Subjective: tolerating diet; appetite increasing ambulating w/assistance staple removed yesterday no significant changes overnight temp: 99 intermittently, no new/worsening symptoms, +Flatus ROS: 10 point ROS as noted above, otherwise negative Physical Exam: General: Alert, Oriented, NAD HEENT: EOMI, Sclerae nonicteric Pulm: Clear to auscultation bilaterally, Normal air movement CV: No edema, Regular rate/rhythm Abd: soft, nontender, no distention Neurological: Normal speech, generalized weakness, pill rolling tremor at rest gallegos in place vitals reviewed Problem List: UTI SBO now s/p ex-lap/ lysis of adhesions MILLA, suspect prerenal Cholelithiasis Generalized weakness h/o CVA hypothyroidism HLD moderate-severe dementia; parkinsons urinary retention UTI, 2nd episode this year, previously did not have frequent UTIs SIRS 1/: tachycardia urine cx: e.coli general surgery - Bull consulted - Exploratory laparotomy done, internal hernia noted, lysis of adhesions done to free up the small bowel. No bowel resection tolerating High fiber diet failed voiding trial at least twice- unclear if sequelae of surgery/meds/parkinsonism, etc flomax has been off sinemet and pramipexole since admission, restart 11/04 continue gallegos, voiding trial in ~1 week - bladder rest and restart parkinson meds, f/u with urology Continue stool softener/laxative nephrology - Dr. Ramos consulted Stage 3 MILLA due to hypovolemia complicated by ATN MILLA resolved Replete electrolytes as needed Monitor H&H Continue PT quite frequently per family Temp: 99, intermittently suspect some atelectasis, will check CXR off antibiotics for ~4 days now, no fever, no leukocytosis, no new symptoms parkinsons restarted sinemet and pramipexole 11/04 - off since admission, which explains worsening of tremor; may be contributing to urinary retention as well VTE: heparin SQ Code: full Dispo: [facility], ~24hrs
[2022-11-04] MEDS ORDERED: POTASSIUM CL SA 10 MEQ TAB PO ONE ×2 (09:00→15:00)
[2022-11-04] MEDS: ENSURE ENLIVE 237 ML CAN PO SCH ×3 (09:00→21:00)
--- NOTE | 2022-11-04 09:15 | PN ---
Date of Progress Note: 11/04/2022 Subjective: The patient is awake, alert. No complaints. Objective: Vital Signs: Stable, afebrile. Passing gas. Temperature is low grade 99 degrees Fahren heit. Abdomen: Benign. Assessment: Status post exploratory laparotomy for small bowel obstruction and low grade fevers. Recommendations: Dr. Cortez is working upon the cause of the fever. There is no apparent cause that we can see clinically nor from the abdominal surgery. Discharge planning is in progress for shelter placement. She can be discharged on antibiotics at this time. /MODL Voice ID: [id number] Report ID: [id number]
[2022-11-04] MEDS: RIVASTIGMINE 4.6 MG/24 HR PATCH TD SCH (09:55)
[2022-11-04] MEDS: ASPIRIN 81 MG CHEWABLE TABLET PO SCH (09:55)
[2022-11-04] MEDS: DOCUSATE NA 100 MG CAP PO SCH ×2 (09:55→21:09)
[2022-11-04] MEDS: ENOXAPARIN 40 MG/0.4 ML SQ SCH (09:56)
[2022-11-04] MEDS: CLOPIDOGREL 75 MG TABLET PO SCH (09:56)
[2022-11-04] MEDS ORDERED: POTASS/SODIUM PHOSPHATE 1 PKT POWD.PACK PO ONE (10:04)
--- NOTE | 2022-11-04 12:34 | RAD REPORT ---
EXAM DESCRIPTION: [facility] [place] Single View11/04/2022 12:27 pm CLINICAL HISTORY: Fever COMPARISON: October 25, 2022 FINDINGS: A few areas of subsegmental atelectasis are present within the left lung base. Main lungs appear clear Heart is upper limits normal size. PICC line in place
--- NOTE | 2022-11-04 13:01 | P.DS ---
Admission Date: 10/22/22 Discharge Date: 11/06/22 Disposition: TRANSFER TO SNF - REHAB Discharge Condition: FAIR Reason for Admission: UTI, Nausea/Vomitting Consultations: General Surgery - Dr. Gottlieb Nephrology - Dr. Ramos Brief History of Present Illness: 76yo F, PMH:CVA/TIA, Dementia, Parkinson's,hypothyroidism Presented to the ED due to worsening confusion, generalized weakness, associated with nausea and vomiting. First noticed some change in mentation several days ago. Daughter was trying to get patient seen at her PCP's office. Symptoms got worse 2 days ago with nausea/vomiting. Patient has not eaten much /able to keep anything down in last few days. Has been off her chronic meds for ~2 days. ~1 month ago, she was seen in ER in [place], diagnosed and discharged home with treatment for UTI. Upon initial evaluation in the ED, she was noted to have acute kidney failure and UTI. CT pelvis scan showed small intestines dilated, possible obstruction, ileus, cholelithiasis. At the time of my exam, Patients daughter states the symptoms are similar to when patient has had UTI's in the past. Patients mother states prior stroke symptoms seem to get exacerbated whenever she has UTIs. Patient was given rocephin in the ED. Hospital Course: Problem List: UTI secondary to e.coli MILLA secondary to dehydration; prerenal SBO now s/p ex-lap/ lysis of adhesions / internal hernia Cholelithiasis Generalized weakness h/o CVA hypothyroidism HLD moderate-severe dementia; Parkinsons urinary retention, acute UTI - completed treatment with IV rocephin. No leukocytosis, and remained afebrile. She did have some intermittent temperature readings in the 99s. [place] to be due to some atelectasis, and possibly small component of not receiving her dopaminergic/parkinson's medications. Repeat UA on 11/05 clear. No other evidence of infection. Fever curve improved. MILLA - resolved with rehydration and remained stable. SBO - Dr. Gottlieb performed ex-lap, noted internal hernia and adhesions. No bowel resection needed. Post-operatively patient was slow to have return of bowel function, but did, and diet was advanced and well tolerated - passing flatus and BM. Continue stool softener and laxative as needed Urinary retention - patient required gallegos catheter re-insertion post- operatively twice due to retention. Family and patient report no prior issue/history. Suspected to be multifactorial - UTI, SBO/constipation, and patient's parkinson medications were held for most of hospitalization. Patient was started on flomax, and recommend to continue. patient is discharged to SNF with gallegos. Sinemet and pramipexole were restarted on 11/04. Recommend voiding trial in ~5-7 days. Follow up with Urology in ~10-14 days. Follow up: PCP within 1 week of discharge home Dr. Gottlieb (General Surgery) in 1 week Urology in ~2 weeks Neurology in ~1 month Nephrology in ~1 month / as needed Medications New: flomax and docusate no other changes. continue home meds as previously prescribed Follow-up office 1 week call for appointment Dry gauze to wound daily No heavy lifting or strenuous exercises Incentive spirometry as ordered Abdominal binder as directed Vital Signs/Physical Exam: Temp Pulse Resp BP Pulse Ox 98.7 F 74 16 137/68 98 11/04/22 08:00 11/04/22 08:00 11/04/22 08:00 11/04/22 08:00 11/04/22 08:00 Physical Exam: General: Alert, Orientedx2, NAD HEENT: EOMI, Sclerae nonicteric Pulm: Clear to auscultation bilaterally, Normal air movement CV: No edema, Regular rate/rhythm Abd: soft, nontender, no distention Neurological: Normal speech, generalized weakness, pill rolling tremor at rest in b/l hands; tremor of maxillofacial muscles gallegos in place vitals reviewed Laboratory Data at Discharge: WBC 6.70 K/uL (4.3-10.9) 11/04/22 05:00 Hgb 10.1 g/dL (12.0-15.0) L 11/04/22 05:00 Hct 30.5 % (36.0-45.0) L 11/04/22 05:00 Plt Count 318 thou/uL (152-406) 11/04/22 05:00 Sodium Cancelled 11/04/22 Unknown Potassium Cancelled 11/04/22 Unknown BUN Cancelled 11/04/22 Unknown Creatinine Cancelled 11/04/22 Unknown Glucose Cancelled 11/04/22 Unknown Uric Acid 9.9 mg/dL (2.6-6.0) H 10/24/22 04:55 Phosphorus Cancelled 11/04/22 Unknown Magnesium 1.9 mg/dL (1.6-2.4) 11/02/22 04:17 Total Bilirubin 0.5 mg/dL (0.2-1.0) 11/02/22 04:17 AST 38 U/L (15-37) H 11/02/22 04:17 ALT 83 U/L (13-56) H 11/02/22 04:17 Alkaline Phosphatase 57 U/L (45-117) 11/02/22 04:17 Triglycerides Cancelled 10/25/22 Unknown Lipase 23 U/L (13-75) 10/22/22 12:45 Home Medications: Acetaminophen [Tylenol] 650 mg PO Q4HP PRN 03/05/14 Aspirin 81 mg PO DAILY 03/05/14 Clopidogrel Bisulfate [Plavix*] 75 mg PO DAILY 03/05/14 Fish Oil/Borage/Flax/Om3,6,9 1 [Centrahoma 3-6-9 Complex Softgel] 1 cap PO DAILY 03/05/14 Levothyroxine [Synthroid*] 150 mcg PO DAILY 03/05/14 Lovastatin [Mevacor*] 20 mg PO BEDTIME 03/05/14 Multivitamin [One-Daily Multi-Vitamin] 1 tab PO DAILY 03/05/14 Rivastigmine Patch [Exelon 4.6 mg Patch*] 4.6 mg TD DAILY 03/05/14 Carbidopa/Levodopa [Carbidopa-Levo ER 25-100 Tab] 1 each PO TID 11/04/22 Pramipexole Di-HCl [Pramipexole Dihydrochloride] 0.125 mg PO TID 11/04/22 Docusate [Colace Cap*] 100 mg PO BID cap 11/05/22 Ensure Enlive 237 ml PO TID can 11/05/22 Tamsulosin [Flomax*] 0.4 mg PO BEDTIME cap 11/05/22 Physician Discharge Instructions: Problem List: UTI secondary to e.coli MILLA secondary to dehydration; prerenal SBO now s/p ex-lap/ lysis of adhesions / internal hernia Cholelithiasis Generalized weakness h/o CVA hypothyroidism HLD moderate-severe dementia; parkinsons urinary retention, acute UTI - completed treatment with IV rocephin. No leukocytosis, and remained afebrile. She did have some intermittent temperature readings in the 99s. [place] to be due to some atelectasis, and possibly small component of not receiving her dopaminergic/parkinson's medications. Repeat UA on 11/05 clear. No other evidence of infection. Fever curve improved. MILLA - resolved with rehydration and remained stable. SBO - Dr. Gottlieb performed ex-lap, noted internal hernia and adhesions. No bowel resection needed. Post-operatively patient was slow to have return of bowel function, but did, and diet was advanced and well tolerated - passing flatus and BM. Continue stool softener and laxative as needed Urinary retention - patient required gallegos catheter re-insertion post- operatively twice due to retention. Family and patient report no prior issue/history. Suspected to be multifactorial - UTI, SBO/constipation, and patient's parkinson medications were held for most of hospitalization. Patient was started on flomax, and recommend to continue. patient is discharged to SNF with gallegos. Sinemet and pramipexole were restarted on 11/04. Recommend voiding trial in ~5-7 days. Follow up with Urology in ~10-14 days. Follow up: PCP within 1 week of discharge home Dr. Gottlieb (General Surgery) in 1 week Urology in ~2 weeks Neurology in ~1 month Nephrology in ~1 month / as needed Medications New: flomax and docusate no other changes. continue home meds as previously prescribed Follow-up office 1 week call for appointment Dry gauze to wound daily No heavy lifting or strenuous exercises Incentive spirometry as ordered Abdominal binder as directed [facility] Services Needed: Snf Facility Name of Company: [facility] [employer] [phone] Date or Referral: Diet: AHA Activity: No lifting more than 10 lbs Followup: Tawanda Gottlieb MD [ACTIVE - CAN ADMIT] - 1 Week Abigail Springer MD [Primary Care Provider] - Time spent managing pt's care (in minutes): 45
[2022-11-04] MEDS: CARBIDOPA/LEVODOPA 25/100 TAB PO SCH ×2 (14:10→21:08)
[2022-11-04] MEDS: PRAMIPEXOLE 0.25 MG TAB PO SCH ×2 (14:10→21:09)
--- NOTE | 2022-11-04 20:59 | P.PN ---
Date of Service: 11/04/22 Vital Signs Temp Pulse Resp BP Pulse Ox 98.4 F 84 18 120/71 97 11/04/22 20:00 11/04/22 20:00 11/04/22 20:00 11/04/22 20:00 11/04/22 20:00 Medications Acetaminophen (Acetaminophen 325 Mg Tablet) 650 mg PO Q6H PRN PRN Reason: Pain scale 2-4 (Mild) Last Admin: 11/02/22 13:33 Dose: 650 mg Aspirin (Aspirin 81 Mg Chewable Tablet) 81 mg PO DAILY [facility] Last Admin: 11/04/22 09:55 Dose: 81 mg Atorvastatin Calcium (Atorvastatin 10 Mg Tab) 10 mg PO BEDTIME [facility] Last Admin: 11/03/22 20:07 Dose: 10 mg Carbidopa/Levodopa (Carbidopa/Levodopa 25/100 Tab) 1 tab PO TID [facility] Last Admin: 11/04/22 14:10 Dose: 1 tab Clopidogrel Bisulfate (Clopidogrel 75 Mg Tablet) 75 mg PO DAILY [facility] Last Admin: 11/04/22 09:56 Dose: 75 mg Docusate Sodium (Docusate Na 100 Mg Cap) 100 mg PO BID [facility] Last Admin: 11/04/22 09:55 Dose: 100 mg Enoxaparin Sodium (Enoxaparin 40 Mg/0.4 Ml) 40 mg SQ DAILY [facility] Last Admin: 11/04/22 09:56 Dose: 40 mg Ergocalciferol (Drisdol (Vitamin D=Ergocalciferol) 00543 Unit Cap) 50,000 unit PO Q7D [facility] Last Admin: 10/31/22 10:19 Dose: 50,000 unit Hydralazine HCl (Hydralazine Hcl 20 Mg/Ml Vial) 10 mg IV Q6HP PRN PRN Reason: Titrate to SBP (MUST DEFINE) Dextrose (D10w 500 Ml Ivpb) 500 mls @ 0 mls/hr IV .Q0M [facility] Last Admin: 10/27/22 15:43 Dose: 500 mls Levothyroxine Sodium (Levothyroxine Sod 0.075 Mg Tab) 0.15 mg PO DAILYAC [facility] Last Admin: 11/04/22 06:36 Dose: 0.15 mg Magnesium Hydroxide (Magnesium Hydroxide 8% 30 Ml) 30 ml PO BID PRN PRN Reason: CONSTIPATION Last Admin: 10/31/22 17:24 Dose: 30 ml Nutritional Formula (Ensure Enlive 237 Ml Can) 237 ml PO TID [facility] Last Admin: 11/04/22 14:00 Dose: 237 ml Ondansetron HCl (Ondansetron 4 Mg/2 Ml Vial) 4 mg IV Q6HP PRN PRN Reason: NAUSEA / VOMITING Last Admin: 11/02/22 20:16 Dose: 4 mg Pantoprazole Sodium (Pantoprazole 40mg Tablet) 40 mg PO DAILYAC [facility] Last Admin: 11/04/22 06:36 Dose: 40 mg Phenol (Phenol 1.4% Oral Mears 180ml) 2 appl MM Q4H PRN PRN Reason: SORE THROAT Last Admin: 10/25/22 10:44 Dose: 2 appl Polyethylene Glycol (Polyethyl Gly 3350 17 Gm/Dose) 17 gm PO DAILY PRN PRN Reason: CONSTIPATION Pramipexole Dihydrochloride (Pramipexole 0.25 Mg Tab) 0.125 mg PO TID [facility] Last Admin: 11/04/22 14:10 Dose: 0.125 mg Rivastigmine (Rivastigmine 4.6 Mg/24 Hr Patch) 4.6 mg TD DAILY [facility] Last Admin: 11/04/22 09:55 Dose: 4.6 mg Sodium Chloride (Flush Normal Saline 10 Ml) 10 ml IV BID [facility] Last Admin: 11/04/22 09:00 Dose: 10 ml Tamsulosin HCl (Tamsulosin 0.4 Mg Sr Cap) 0.4 mg PO BEDTIME [facility] Last Admin: 11/03/22 20:07 Dose: 0.4 mg Microbiology Results 10/22/22 13:05 Clean Catch Urine [place] Count - Final >100,000 CFU/ML. 10/22/22 13:05 Clean Catch Urine - Final Escherichia Coli Assessment/ Plan: Nephrology No dyspnea No chest pain +BM No acute events overnight Vitals, medications, blood work and imaging reviewed in the chart. General: In no apparent distress, Cooperative HEENT: Atraumatic Neck: Supple Respiratory: Clear to auscultation bilaterally Cardiovascular: No edema, Regular rate/rhythm Gastrointestinal: Distended, Tenderness Musculoskeletal: No clubbing, No contractures Integumentary: No rashes, No cyanosis Neurological: Normal speech Blood work reviewed in the chart. Imagings Data: EXAM DESCRIPTION: CT - Abdomen Pelvis Wo Contrast - 10/22/2022 1:34 pm CLINICAL HISTORY: Abdominal pain /vomiting COMPARISON: None TECHNIQUE: Computed axial tomography of the abdomen and pelvis was obtained. IV and oral contrast were not requested. All CT scans are performed using dose optimization technique as appropriate and may include automated exposure control or mA/KV adjustment according to patient size. FINDINGS: The evaluation of solid organs, vessels and bowel is limited secondary to the lack of contrast administration. The liver, spleen, pancreas, adrenals and left kidney appear grossly normal. 5 millimeter calculus left kidney. Hydronephrosis. Cholelithiasis. Gallbladder wall thickening is seen. Moderate dilatation of jejunum and part of ileum. Distal ileum is decompressed. No free air. Neurostimulator device IMPRESSION: Ileal obstruction Cholelithiasis EXAM DESCRIPTION: US - Abdomen Exam Limited - 10/23/2022 10:02 am CLINICAL HISTORY: cholelithiasis, n/v, eval CBD/GB COMPARISON: <Comparisons> TECHNIQUE: Sonographic grayscale and color flow images of the right upper quadrant were obtained. FINDINGS: Exam is technically limited by over shadowing bowel gas. The gallbladder demonstrates small echogenic definite explicitly shadowing, gallstones layering dependently along the body and neck of the gallbladder. No pericholecystic fluid or gallbladder wall thickening. The common bile duct is normal measuring 3 mm. The liver demonstrates no findings of intrahepatic biliary dilatation. IMPRESSION: Cholelithiasis. No sonographic evidence of acute cholecystitis. No intra or extrahepatic biliary ductal dilation. EXAM DESCRIPTION: RAD - Abdomen 1 View (KUB) - 10/23/2022 6:55 am CLINICAL HISTORY: ileus COMPARISON: No comparisonsAbdomen Pelvis Wo Contrast dated 10/22/2022 FINDINGS: Dilated small bowel centrally measuring up to 4.2 cm is similar to 10/22/2022. No acute osseous abnormality.Visualized lungs are unremarkable.No abnormal calcifications. Spinal stimulator. IMPRESSION: Dilated small bowel similar to 10/22/2022. EXAM DESCRIPTION: [facility] Single View11/04/2022 12:27 pm CLINICAL HISTORY: Fever COMPARISON: October 25, 2022 FINDINGS: A few areas of subsegmental atelectasis are present within the left lung base. Main lungs appear clear Heart is upper limits normal size. PICC line in place Conclusions/Impression: Stage III MILLA may be due to hypovolemia, resolved Proteinuria -No NSAIDs -Maintain hydration Hypokalemia -Replete potassium Hypophosphatemia -Replete PO4 -Encourage nutrition PreDM A1C 6 -RISS prn Moderate malnutrition with decreased functinal ability Hypoalbuminemia -Advance diet as tolerated -Continue protein supplementation Anemia in chronic illness -Monitor H&H Urinary retention -Continue gallegos -Follow up with urology Ileal obstruction sp surgery 01-25-23 -Advance diet as tolerated -Follow up with surgery
[2022-11-04] MEDS: TAMSULOSIN 0.4 MG SR CAP PO SCH (21:08)
[2022-11-04] MEDS: ATORVASTATIN 10 MG TAB PO SCH (21:08)
[2022-11-05 06:18] LABS: Potassium 3.8 mEq/L (3.5-5.1)
[2022-11-05] MEDS: PANTOPRAZOLE 40MG TABLET PO SCH (06:38)
[2022-11-05] MEDS: LEVOTHYROXINE SOD 0.075 MG TAB PO SCH (06:38)
[2022-11-05 07:22] LABS: Specific Gravity 1.016 (1.005-1.030); Urine Bilirubin NEGATIVE (Negative); Urine Blood Negative (Negative); Urine Clarity Clear (Clear); Urine Color Light-Yellow (Yellow); Urine Glucose NEGATIVE (Negative); Urine Protein NEGATIVE (Negative); Urine Urobilinogen Normal (Normal); Urine pH 7.5 (5.0-7.0)
[2022-11-05] MEDS ORDERED: POTASSIUM PHOS 20 MM in NA CHLORIDE 0.9% 500 ML IV ONE (07:38)
[2022-11-05] MEDS: RIVASTIGMINE 4.6 MG/24 HR PATCH TD SCH (08:19)
[2022-11-05] MEDS: ACETAMINOPHEN 325 MG TABLET PO PRN ×2 (08:21→23:16)
[2022-11-05] MEDS: PRAMIPEXOLE 0.25 MG TAB PO SCH ×3 (08:22→21:53)
[2022-11-05] MEDS: ASPIRIN 81 MG CHEWABLE TABLET PO SCH (08:23)
[2022-11-05] MEDS: CARBIDOPA/LEVODOPA 25/100 TAB PO SCH ×3 (08:23→21:53)
[2022-11-05] MEDS: CLOPIDOGREL 75 MG TABLET PO SCH (08:23)
[2022-11-05] MEDS: ENOXAPARIN 40 MG/0.4 ML SQ SCH (08:23)
[2022-11-05] MEDS: DOCUSATE NA 100 MG CAP PO SCH ×2 (08:23→21:54)
[2022-11-05] MEDS: ENSURE ENLIVE 237 ML CAN PO SCH ×3 (08:28→21:56)
--- NOTE | 2022-11-05 11:39 | P.PN ---
Date of Service: 11/05/22 Subjective: tolerating diet; appetite increasing confused; feeling uncomfortable in bed no significant changes overnight temp: low grade temp in AM; 100.2 possibly trouble/delay with swallowing per patients story with daughter ROS: 10 point ROS as noted above, otherwise negative Physical Exam: General: Alert, Orientedx2, NAD HEENT: EOMI, Sclerae nonicteric Pulm: Clear to auscultation bilaterally, Normal air movement CV: No edema, Regular rate/rhythm Abd: soft, nontender, no distention Neurological: Normal speech, generalized weakness, pill rolling tremor at rest gallegos in place vitals reviewed Problem List: UTI SBO now s/p ex-lap/ lysis of adhesions MILLA, suspect prerenal Cholelithiasis Generalized weakness h/o CVA hypothyroidism HLD moderate-severe dementia; parkinsons urinary retention UTI, 2nd episode this year, previously did not have frequent UTIs SIRS 1/: tachycardia urine cx: e.coli general surgery - Bull consulted - Exploratory laparotomy done, internal hernia noted, lysis of adhesions done to free up the small bowel. No bowel resection failed voiding trial at least twice- unclear if sequelae of surgery/meds/parkinsonism, etc flomax has been off sinemet and pramipexole since admission, restart 11/04 continue gallegos, voiding trial in ~1 week - bladder rest and restart parkinson meds, f/u with urology Continue stool softener/laxative nephrology - Dr. Ramos consulted Stage 3 MILLA due to hypovolemia complicated by ATN MILLA resolved Replete electrolytes as needed Monitor H&H Continue PT quite frequently per family Temp: 99-100.2 intermittently suspect some atelectasis - seen on CXR 11/04 off antibiotics for ~5 days now, no fever, no leukocytosis, no new symptoms parkinsons restarted sinemet and pramipexole 11/04 - off since admission, which explains worsening of tremor; may be contributing to urinary retention as well concern for component of withdrawal from meds, could lead to low grade temp VTE: heparin SQ Code: full Dispo: [facility], ~24hrs
[2022-11-05] MEDS: TAMSULOSIN 0.4 MG SR CAP PO SCH (21:52)
[2022-11-05] MEDS: ATORVASTATIN 10 MG TAB PO SCH (21:53)
[2022-11-05 22:43] VITALS: O2SAT 94
[2022-11-06 04:55] LABS: Magnesium 1.7 mg/dL (1.6-2.4); Potassium 3.5 mEq/L (3.5-5.1)
[2022-11-06 05:43] LABS: Phosphorus 2.7 mg/dL (2.5-4.9)
[2022-11-06] MEDS ORDERED: MAGNESIUM SULFATE 1 gm IVPB 1 GM/100 ML BAG IV ONE (05:57)
[2022-11-06] MEDS: PANTOPRAZOLE 40MG TABLET PO SCH (07:01)
[2022-11-06] MEDS: LEVOTHYROXINE SOD 0.075 MG TAB PO SCH (07:02)
[2022-11-06] MEDS: CLOPIDOGREL 75 MG TABLET PO SCH (08:30)
[2022-11-06] MEDS: CARBIDOPA/LEVODOPA 25/100 TAB PO SCH ×2 (08:30→13:10)
[2022-11-06] MEDS: ASPIRIN 81 MG CHEWABLE TABLET PO SCH (08:30)
[2022-11-06] MEDS: PRAMIPEXOLE 0.25 MG TAB PO SCH ×2 (08:30→13:10)
[2022-11-06] MEDS: RIVASTIGMINE 4.6 MG/24 HR PATCH TD SCH (08:31)
[2022-11-06] MEDS: DOCUSATE NA 100 MG CAP PO SCH (08:31)
[2022-11-06] MEDS: ENSURE ENLIVE 237 ML CAN PO SCH ×2 (08:31→13:10)
[2022-11-06] MEDS: ENOXAPARIN 40 MG/0.4 ML SQ SCH (08:31)
[2022-11-06] MEDS ORDERED: KCL 20 MEQ/100 mL IVPB 20 MEQ/100 ML BAG IV SCH (09:00)
[2022-11-06 12:19] VITALS: BP 131/68; TEMP 98
== END 2022-11-06 15:00 | DRG 674 ==
LOC: ER 11:33 → ERHOLD 15:25 → 4TH 18:02 → 3RD-ICU 10-25 14:48 → 4TH 10-27 22:46
PROVIDERS: ADMIT Hospitalist; ATTEND Hospitalist
PROC: 02HV33Z Insertion of Infusion Device into Superior Vena Cava, Percutaneous Approach (ICD-10-PCS; 2022-10-25)
PROC: 0DNB0ZZ Release Ileum, Open Approach (ICD-10-PCS; principal; 2022-10-25 13:15)
PROC: 3E0336Z Introduction of Nutritional Substance into Peripheral Vein, Percutaneous Approach (ICD-10-PCS; 2022-10-27)
DX: N39.0 Urinary tract infection, site not specified (principal); E44.0 Moderate protein-calorie malnutrition; E87.0 Hyperosmolality and hypernatremia; N17.9 Acute kidney failure, unspecified; R65.10 Systemic inflammatory response syndrome (SIRS) of non-infectious origin without acute organ dysfunction; E87.3 Alkalosis; E87.1 Hypo-osmolality and hyponatremia; K46.0 Unspecified abdominal hernia with obstruction, without gangrene; F05 Delirium due to known physiological condition; E03.9 Hypothyroidism, unspecified; G20 Parkinson's disease; E78.00 Pure hypercholesterolemia, unspecified; F03.90 Unspecified dementia, unspecified severity, without behavioral disturbance, psychotic disturbance, mood disturbance, and anxiety; K80.20 Calculus of gallbladder without cholecystitis without obstruction; E83.39 Other disorders of phosphorus metabolism; E87.6 Hypokalemia; K59.04 Chronic idiopathic constipation; E88.09 Other disorders of plasma-protein metabolism, not elsewhere classified; K46.9 Unspecified abdominal hernia without obstruction or gangrene; E86.0 Dehydration; F03.B0 Unspecified dementia, moderate, without behavioral disturbance, psychotic disturbance, mood disturbance, and anxiety; D63.8 Anemia in other chronic diseases classified elsewhere; B96.20 Unspecified Escherichia coli [E. coli] as the cause of diseases classified elsewhere; R73.9 Hyperglycemia, unspecified; R33.9 Retention of urine, unspecified; R73.03 Prediabetes; Z88.5 Allergy status to narcotic agent; Z88.8 Allergy status to other drugs, medicaments and biological substances; Z86.73 Personal history of transient ischemic attack (TIA), and cerebral infarction without residual deficits; Z68.22 Body mass index [BMI] 22.0-22.9, adult; Z79.82 Long term (current) use of aspirin; Z79.02 Long term (current) use of antithrombotics/antiplatelets; Z79.899 Other long term (current) drug therapy; Z79.890 Hormone replacement therapy; Z90.710 Acquired absence of both cervix and uterus; Z20.822 Contact with and (suspected) exposure to COVID-19
CPT/HCPCS: 36415; 36569; 71045; 74018; 74176; 76705; 80048; 80053; 81001; 81003; 81015; 82947; 83036; 83690; 83735; 84100; 84132; 84134; 84439; 84443; 84478; 84550; 85025; 85027; 87077; 87086; 87088; 87186; 87811; 92610; 94010; 94760; 96374; 96375; 97112; 97116; 97161; 97164; 97530; 99285; C9113; J0360; J0694; J1170; J1630; J1644; J1650; J2001; J2250; J2405; J2704; J3010; J3475; J3480; J7030; J7040; J7120